=== PATIENT | female | born 1990 | race Caucasian/White ===

== ENCOUNTER 2020-03-23 11:11 | Outpatient (CLI) | payer OTHER, SELFPAY ==
--- NOTE | ~2020-03-23 | US_ITS ---
EXAMINATION: US thyroid DATE: 03/23/2020 14:50 INDICATION: Thyroid nodule TECHNIQUE: Multiple ultrasound images of the thyroid were obtained. COMPARISON: 12/02/2018 FINDINGS: The right thyroid lobe measures 5.1 x 1.8 x 1.4 cm. The left thyroid lobe measures 5.2 x 2.0 x 1.7 c m. There is heterogeneous echogenicity throughout both thyroid lobes with multiple hypoechoic region s throughout both thyroid lobes the majority of which does not appear discretely nodular. There is mo re discrete 1.5 x 1.4 x 1.2 cm hypoechoic solid nodule in the inferior right thyroid with well-define d peripheral margins and without internal echogenic foci (TI-RADS 4, moderately suspicious , FNA if > =1.5 cm, annual followup is >1 cm). No interval change in a 10 x 8 x 5 mm nodule with lobular margins in the left thyroid lobe, also TI RADS 4. IMPRESSION: 1. Heterogeneous thyroid with a couple more discretely defined solid TI RADS 4 nodules, the largest o n the right measuring 1.5 cm for which ultrasound-guided biopsy would be recommended. Reviewed, dictated and finalized at location A. IMPRESSION: 1. Heterogeneous thyroid with a couple more discretely defined solid TI RADS 4 nodules, the largest on the right measuring 1.5 cm for which ultrasound-guided biopsy would be recommended.
== END 2020-03-23 11:12 | disposition home or self-care (01) ==
PROVIDERS: PCP Internal Medicine; Visit Provider Internal Medicine
DX: E04.2 Nontoxic multinodular goiter (principal)
CPT/HCPCS: 76536

== ENCOUNTER 2020-05-29 07:55 | Emergency (ER) | payer OTHER, SELFPAY ==
[2020-05-29 08:00] VITALS: PULSE 110; RESP 18; TEMP 36.4; O2SAT 100
[2020-05-29] MEDS: SODIUM CHLORIDE 0.9% IV 1,000 ML 999 ML IV CONT (08:14)
[2020-05-29] MEDS: KETOROLAC 30 MG/ML VIAL (*BKC) IV PUSH (08:14)
[2020-05-29] MEDS: diphenhydrAMINE HCl INJ 50 MG/ML VIAL 25 MG IV PUSH (08:15)
[2020-05-29] MEDS: METOCLOPRAMIDE HCL INJ 10 MG/2 ML VIAL IV PUSH (08:15)
--- NOTE | 2020-05-29 09:10 | ED.HA ---
HPI - Headache General Chief Complaint: Headache Stated Complaint: headache Time Seen by Provider: 05/29/20 07:59 History of Present Illness HPI Narrative: Patient is a 30-year-old female who presents the ER with migraine headache. Patient has history of migraine headaches and this is similar but more severe. Ongoing for the last 7 days. She has tried nxcy-evy-dkpyuun medications as well as Maxalt with no relief of her headache. She does not see a migraine specialist. No fevers or chills or sweats/nausea/vomiting. She endorses photophobia and phonophobia. She reports diplopia in the right eye when the left eye is closed and when using both eyes. She also reports sensation numbness down her right arm though sharp and soft touch is intact. No trauma or sudden onset headache. Related Data Home Medications Medication Instructions Recorded Confirmed albuterol sulfate 90 mcg/actuation 1 puff INHALATION Q4H PRN 10/15/19 aerosol inhaler citalopram 20 mg tablet 20 mg PO DAILY 10/15/19 dicyclomine 10 mg capsule 10 mg PO .PRN cap 10/15/19 levocetirizine 5 mg tablet 5 mg PO DAILY 10/15/19 levothyroxine 50 mcg tablet 50 mcg PO DAILY 10/15/19 montelukast 10 mg tablet 10 mg PO DAILY 10/15/19 omeprazole 40 mg capsule,delayed 40 mg PO DAILY 10/15/19 release ethynodiol diac-eth estradiol tablet 05/29/20 [Zovia 1/35E (28)] rizatriptan mg 05/29/20 venlafaxine 75 mg PO QAM 05/29/20 Allergies Allergy/AdvReac Type Severity Reaction Status Date / Time piperacillin Allergy Mild Rash Verified 05/29/20 08:05 tazobactam Allergy Mild Rash Verified 05/29/20 08:05 Review of Systems Review of Systems: All systems reviewed & are unremarkable except as noted in HPI and below Constitutional: Constitutional: Denies chills, Denies fever(s) and Denies weakness Eyes: Comments: Double vision in right eye, photophobia ENT: Comments: Phonophobia Neurologic: Reports headache(s), Denies focal weakness and Reports numbness PMFSH Past Medical History Medical History (Updated 05/29/20 @ 09:15 by Román Fuller MD) Anxiety HLD (hyperlipidemia) Hypothyroidism IBS (irritable bowel syndrome) Injury of right knee Medial meniscus tear Migraine headache Surgical History Surgical History (Updated 05/29/20 @ 09:12 by Román Fuller MD) History of appendectomy History of cholecystectomy Social History Social History Smoking status: Never smoker Alcohol intake: current Gender identity (if verbalized by the patient): Female Exam Narrative: Exam Narrative: GENERAL: Uncomfortable-appearing, well-nourished, and in no acute distress. HEAD: Normocephalic, atraumatic. EYES: PERRLA and EOMI. CHEST: Clear to auscultation. No respiratory distress. HEART: Tachycardic and regular. Normal peripheral pulses. EXTREMITIES: Normal range of motion. No edema. NEURO: No focal deficits. Sharp/soft touch equal in bilateral upper extremities. Alert and oriented x3. PSYCH: Normal mood and affect. Course Course Emergency Course: Headache resolved with saline, Benadryl/Reglan/Toradol. Reports total resolution in double vision and numbness sensation. Vital Signs Vital signs: Vital Signs Temperature 97.5 F L 05/29/20 08:00 Pulse Rate 110 H 05/29/20 08:00 Respiratory Rate 18 05/29/20 08:00 Pulse Oximetry 100 05/29/20 08:00 Temperature 97.5 F L 05/29/20 08:00 Pulse Rate 110 H 05/29/20 08:00 Respiratory Rate 18 05/29/20 08:00 Pulse Oximetry 100 05/29/20 08:00 Discharge Plan Discharge Clinical Impression: Headache, migraine Patient Disposition: Home, Self-Care Condition: Stable Instructions: Antibiotic Form, Migraine Headache (ED) Additional Instructions: Return to the ER if you have chest pain or shortness of breath, cannot keep down food or water, you have fever over 100.4 ?F, you have additional concerns. Prescriptions: No Action
[2020-05-29 09:25] VITALS: BP 135/89; PULSE 90; RESP 14; O2SAT 98
== END 2020-05-29 09:27 | disposition home or self-care (01) ==
PROVIDERS: Emergency Provider Emergency Medicine; PCP Internal Medicine
DX: G43.909 Migraine, unspecified, not intractable, without status migrainosus (principal); F41.9 Anxiety disorder, unspecified; E78.5 Hyperlipidemia, unspecified; E03.9 Hypothyroidism, unspecified; K58.9 Irritable bowel syndrome, unspecified
CPT/HCPCS: 96361; 96374; 96375; 99284; J1200; J1885; J2765; J7030

== ENCOUNTER 2020-05-30 06:32 | Emergency (ER) | payer OTHER, SELFPAY ==
--- NOTE | ~2020-05-30 | CT_ITS ---
EXAMINATION: CT brain wo con DATE: 05/30/2020 07:14 INDICATION: Headache. Numbness of the arms and face. Right visual disturbance. TECHNIQUE: Computed tomography (CT) of the head was performed without intravenous contrast. The mA wa s adjusted according to patient size. Iterative reconstruction technique was employed. Exam dose: 60 5.33 mGy-cm total exam DLP. COMPARISON: None FINDINGS: No intracranial mass lesion or hemorrhage or cerebrovascular accident. No midline shift or mass effects. Normal ventricular size. Normal pyle-white matter differentiation. No subdural or epidu ral hematoma. The orbits are unremarkable. No fracture or bone destruction of the cranial vault. Included paranasal sinuses and mastoid air cell s are normally developed and aerated. IMPRESSION: Negative examination Reviewed, dictated and finalized at [facility]. Reviewed, dictated and finalized at location A. IMPRESSION: Negative examination
--- NOTE | ~2020-05-30 | CT_ITS ---
EXAMINATION: CTA BRAIN/CAROTID DATE: 05/30/2020 10:25 INDICATION: Headache. Right-sided numbness and diplopia. TECHNIQUE: Computed tomographic angiography (CTA) of the head and neck was performed with 100 mL Omni paque-350 intravenous contrast. Multiplanar reconstructions and maximum intensity projection 3D-recon structions of the carotid arteries and of the intracranial arteries were created by the technologist on a separate workstation. Automated exposure control and iterative reconstruction technique were em ployed.The dose-length product was 946.31 mGy-cm. COMPARISON: Noncontrast head CT dated 05/30/2020 at 7:08 AM FINDINGS: Carotid arteries: There is 0% stenosis of the right carotid bulb relative to normal distal artery lumen diameter (NASCE T criteria). There is 0% stenosis of the left carotid bulb relative to normal distal artery lumen reta meter. The cervical vertebral arteries appear normal. Cervical soft tissues are unremarkable. Visuali zed portions of the airway and apices of the lungs are clear. Intracranial arteries There is no hemodynamically significant stenosis in the vertebral, basilar and internal carotid arter ies. Vertebral arteries are codominant. There are no aneurysms identified. Both A1 and P1 segments a re patent. There is also a patent anterior communicating cerebral artery. Cerebral arterial arborizat ion appears symmetric. No abnormal enhancing brain lesions identified. IMPRESSION: 1. 0% stenosis of the right carotid bulb relative to normal distal artery lumen diameter (NASCET crit eria). 2. 0% stenosis of the left carotid bulb relative to normal distal artery lumen diameter. 3. Normal cerebral angiogram. Reviewed, dictated and finalized at location A. IMPRESSION: 1. 0% stenosis of the right carotid bulb relative to normal distal artery lumen diameter (NASCET criteria). 2. 0% stenosis of the left carotid bulb relative to normal distal artery lumen diameter. 3. Normal cerebral angiogram.
[2020-05-30 06:35] VITALS: BP 132/91; PULSE 108; RESP 19; TEMP 35.9; O2SAT 100
[2020-05-30] MEDS: METOCLOPRAMIDE HCL INJ 10 MG/2 ML VIAL IV PUSH (07:26)
[2020-05-30] MEDS: SODIUM CHLORIDE 0.9% IV 1,000 ML 999 ML IV CONT (07:26)
[2020-05-30] MEDS: KETOROLAC 30 MG/ML VIAL (*BKC) IV PUSH (07:27)
[2020-05-30] MEDS: diphenhydrAMINE HCl INJ 50 MG/ML VIAL 25 MG IV PUSH (07:27)
[2020-05-30 07:34] VITALS: BP 124/86; PULSE 89; RESP 20; O2SAT 98
--- NOTE | 2020-05-30 07:35 | ED.HA ---
HPI - Headache General Chief Complaint: Headache Stated Complaint: migraine Time Seen by Provider: 05/30/20 07:06 History of Present Illness HPI Narrative: Patient is a 30-year-old female who presents the ER with headache. Was seen yesterday for similar symptoms that had lasted for a week. She reports after getting home she went to bed and then awoke around 7 PM yesterday evening. Her headache started to come back so she took a Tylenol. Around 9 PM she took a Maxalt. She reports headache increased throughout the night. She now again has double vision in her right eye and numb sensation to her right upper extremity. She reports her told her she was confused with patient's not demonstrating confusion at this time. No additional changes to her symptoms. Related Data Home Medications Medication Instructions Recorded Confirmed albuterol sulfate 90 mcg/actuation 1 puff INHALATION Q4H PRN 10/15/19 aerosol inhaler citalopram 20 mg tablet 20 mg PO DAILY 10/15/19 dicyclomine 10 mg capsule 10 mg PO .PRN cap 10/15/19 levocetirizine 5 mg tablet 5 mg PO DAILY 10/15/19 levothyroxine 50 mcg tablet 75 mcg PO DAILY 10/15/19 montelukast 10 mg tablet 10 mg PO DAILY 10/15/19 omeprazole 40 mg capsule,delayed 40 mg PO DAILY 10/15/19 release ethynodiol diac-eth estradiol tablet 05/29/20 [Zovia 1/35E (28)] rizatriptan mg 05/29/20 venlafaxine 75 mg PO QAM 05/29/20 Allergies Allergy/AdvReac Type Severity Reaction Status Date / Time piperacillin Allergy Mild Rash Verified 05/29/20 08:05 tazobactam Allergy Mild Rash Verified 05/29/20 08:05 Review of Systems Review of Systems: All systems reviewed & are unremarkable except as noted in HPI and below Constitutional: Constitutional: Denies chills, Denies fever(s) and Denies weakness Eyes: Eyes: Reports change in vision Comments: photophobia ENT: Denies nasal congestion and Denies sore throat Comments: phonophobia Neurologic: Reports confusion, Denies vertigo, Reports headache(s), Denies focal weakness and Reports numbness [facility] Past Medical History Medical History (Updated 08/07/20 @ 11:12 by Román Fuller MD) Anxiety HLD (hyperlipidemia) Hypothyroidism IBS (irritable bowel syndrome) Injury of right knee Medial meniscus tear Migraine headache Surgical History Surgical History (Updated 05/29/20 @ 09:12 by Román Fuller MD) History of appendectomy History of cholecystectomy Social History Social History Smoking status: Never smoker Alcohol intake: current Gender identity (if verbalized by the patient): Female Exam Narrative: Exam Narrative: GENERAL: Well-appearing, well-nourished, and in no acute distress. HEAD: Normocephalic, atraumatic. CHEST: Clear to auscultation. No respiratory distress. HEART: Regular rate and rhythm. Normal peripheral pulses. EXTREMITIES: Normal range of motion. No edema. SKIN: Warm, dry, no rash. NEURO: No focal deficits. Clear speech. Alert and oriented x3. PSYCH: Normal mood and affect. Course Course Emergency Course: Discussed case with Dr. Fischer with neurology. Recommend CTA to rule out aneurysm. After that patient to be started on Topamax 25 mg daily and can follow-up in clinic. She may continue to take a Maxalt and [id number]-[id number] medications for headache. Patient now reports that headache is starting to return and send the posterior aspect of her head down near her neck at the occipital condyle. Vital Signs Vital signs: Vital Signs Temperature 96.7 F L 05/30/20 06:35 Pulse Rate 108 H 05/30/20 06:35 Respiratory Rate 19 05/30/20 06:35 Blood Pressure 132/91 H 05/30/20 06:35 Pulse Oximetry 100 05/30/20 06:35 Temperature 96.7 F L 05/30/20 06:35 Pulse Rate 85 05/30/20 10:55 Respiratory Rate 20 05/30/20 10:55 Blood Pressure 134/70 05/30/20 08:19 Pulse Oximetry 99 05/30/20 10:55 MDM - Headache Lab Data Re
[2020-05-30 07:43] LABS: Basophils Absolute Auto 0.1 K/mm3 (0.0-0.1); Basophils Percent Auto 0.5 % (0.2-1.2); Eosinophils Absolute Auto 0.2 K/mm3 (0-0.3); Eosinophils Percent Auto 1.6 % (0-4.4); Hematocrit 42.1 % (37.0-47.0); Hemoglobin 14.1 g/dL (12.0-15.0); Immature Granulocyte Absolute 0.03 K/mm3 (0.00-0.031); Immature Granulocyte Percent A 0.3 % (0-0.5); Lymphocytes Absolute Auto 4.06 K/mm3 (0.9-3.2); Lymphocytes Percent Auto 39.7 % (18.3-44.2); Mean Corpuscular HGB Conc 33.5 g/dl (32-36); Mean Corpuscular Hemoglobin 30.9 pg (26-34); Mean Corpuscular Volume 92.1 fl (80-100); Mean Platelet Volume 10.5 fl (7.4-10.4); Monocytes Absolute Auto 0.5 K/mm3 (0.1-0.6); Monocytes Percent Auto 5.2 % (2.6-8.5); Neutrophils Absolute Auto 5.4 K/mm3 (1.3-6.7); Neutrophils Percent Auto 52.7 % (45.5-73.1); Platelet Count Result 411 k/mm3 (150-375); Red Blood Count 4.57 M/mm3 (4.2-5.4); Red Cell Distribution Width 12.7 % (11.5-14.5); White Blood Count 10.2 K/mm3 (4.5-10.0)
[2020-05-30 07:54] LABS: Anion Gap 13.7 mmol/L (7-16); Blood Urea Nitrogen 10 mg/dL (7-17); Calcium 9.2 mg/dL (8.4-10.2); Carbon Dioxide 23 mmol/L (22-30); Chloride 105 mmol/L (98-107); Estimated CRCL calculation 128 ml/min; Estimated Glomerular Filt Rate > 60; Glucose 92 mg/dL (65-105); Potassium 3.7 mmol/L (3.4-5.0); Sodium 138 mmol/L (137-145)
[2020-05-30 08:19] VITALS: BP 134/70; PULSE 99; RESP 20; O2SAT 99
[2020-05-30 08:46] LABS: Add Urine Microscopic? YES; Appearance Urine Clear (Clear); Bacteria Urine Trace /hpf; Bilirubin Urine Negative (Negative); Blood Urine Negative (Negative); Color Urine Straw (Yellow); Glucose Urine UA Negative (Negative); Ketones Urine Negative (Negative); Leukocyte Esterase Ur 3+ LEU/UL (Negative); Nitrate Urine Negative (Negative); Protein Urine Negative (Negative); RBC Urine 0-2 /hpf (0-2); Specific Grav Ur 1.009 (1.001-1.035); Squamous Epithelial Cell Urine Few /hpf (Few); Urobilinogen Urine Negative mg/dL (<2.0)
[2020-05-30 09:00] VITALS: PULSE 86; RESP 20; O2SAT 99
[2020-05-30] MEDS: MORPHINE SULFATE 4 MG/ML INJ IV PUSH (10:54)
[2020-05-30 10:55] VITALS: PULSE 85; RESP 20; O2SAT 99
[2020-05-30 12:10] VITALS: BP 121/79; PULSE 83; RESP 16; TEMP 36.6; O2SAT 99
== END 2020-05-30 12:11 | disposition home or self-care (01) ==
PROVIDERS: Emergency Provider Emergency Medicine; PCP Internal Medicine
DX: G43.909 Migraine, unspecified, not intractable, without status migrainosus (principal); F41.9 Anxiety disorder, unspecified; E78.5 Hyperlipidemia, unspecified; E03.9 Hypothyroidism, unspecified; K58.9 Irritable bowel syndrome, unspecified; R82.998 Other abnormal findings in urine
CPT/HCPCS: 36415; 70450; 70496; 70498; 80048; 81001; 85025; 87086; 96361; 96374; 96375; 99284; J1200; J1885; J2270; J2765; J7030; Q9967

== ENCOUNTER 2020-06-19 12:45 | Emergency (ER) | payer OTHER, SELFPAY ==
[2020-06-19] VITALS (19 sets, daily range): BP systolic 111–129; BP diastolic 71–83; PULSE 81–120; RESP 16–27; TEMP 35.9; O2SAT 95–100
[2020-06-19 13:43] LABS: Basophils Absolute Auto 0.1 K/mm3 (0.0-0.1); Basophils Percent Auto 0.9 % (0.2-1.2); Eosinophils Absolute Auto 0.1 K/mm3 (0-0.3); Eosinophils Percent Auto 0.7 % (0-4.4); Hematocrit 40.1 % (37.0-47.0); Hemoglobin 14.2 g/dL (12.0-15.0); Immature Granulocyte Absolute 0.03 K/mm3 (0.00-0.031); Immature Granulocyte Percent A 0.3 % (0-0.5); Lymphocytes Absolute Auto 2.72 K/mm3 (0.9-3.2); Lymphocytes Percent Auto 30.7 % (18.3-44.2); Mean Corpuscular HGB Conc 35.4 g/dl (32-36); Mean Corpuscular Hemoglobin 31.3 pg (26-34); Mean Corpuscular Volume 88.5 fl (80-100); Mean Platelet Volume 10.3 fl (7.4-10.4); Monocytes Absolute Auto 0.6 K/mm3 (0.1-0.6); Monocytes Percent Auto 6.8 % (2.6-8.5); Neutrophils Absolute Auto 5.4 K/mm3 (1.3-6.7); Neutrophils Percent Auto 60.6 % (45.5-73.1); Platelet Count Result 363 k/mm3 (150-375); Red Blood Count 4.53 M/mm3 (4.2-5.4); Red Cell Distribution Width 12.2 % (11.5-14.5); White Blood Count 8.9 K/mm3 (4.5-10.0)
--- NOTE | 2020-06-19 13:51 | ED.HA ---
HPI - Headache General Chief Complaint: Headache Stated Complaint: conroy/right sided facial numbness Time Seen by Provider: 06/19/20 13:00 Source: patient Mode of arrival: ambulatory Limitations: no limitations History of Present Illness HPI Narrative: Patient is a 30-year-old female who presents to emergency department for evaluation of headache noted as frontal headache that radiates posteriorly into the neck patient has had this migraine headache since the beginning of May patient is seen her neurologist and had recent changes and increases of her medication with no improvement patient is followed by a neurologist out of [facility]. Patient on arrival to emergency department is in no distress. Patient with longstanding history of migraine headaches. Patient denies injury trauma or recent illness. Patient on arrival to emergency department in no distress. Related Data Home Medications Medication Instructions Recorded Confirmed albuterol sulfate 90 mcg/actuation 1 puff INHALATION Q4H PRN 10/15/19 aerosol inhaler citalopram 20 mg tablet 20 mg PO DAILY 10/15/19 dicyclomine 10 mg capsule 10 mg PO .PRN cap 10/15/19 levocetirizine 5 mg tablet 5 mg PO DAILY 10/15/19 levothyroxine 50 mcg tablet 75 mcg PO DAILY 10/15/19 montelukast 10 mg tablet 10 mg PO DAILY 10/15/19 omeprazole 40 mg capsule,delayed 40 mg PO DAILY 10/15/19 release ethynodiol diac-eth estradiol tablet 05/29/20 [Zovia 1/35E (28)] rizatriptan mg 05/29/20 venlafaxine 75 mg PO QAM 05/29/20 Allergies Allergy/AdvReac Type Severity Reaction Status Date / Time piperacillin Allergy Mild Rash Verified 06/19/20 13:14 tazobactam Allergy Mild Rash Verified 06/19/20 13:14 Review of Systems Review of Systems: All systems reviewed & are unremarkable except as noted in HPI and below PMFSH Past Medical History Medical History Anxiety HLD (hyperlipidemia) Hypothyroidism IBS (irritable bowel syndrome) Injury of right knee Medial meniscus tear Migraine headache Surgical History Surgical History History of appendectomy History of cholecystectomy Social History Social History Smoking status: Never smoker Alcohol intake: current Gender identity (if verbalized by the patient): Female Exam Narrative: Exam Narrative: GENERAL: Well-appearing, obese, and in no acute distress. HEAD: Normocephalic, atraumatic. EYES: PERRLA and EOMI. ENT: Nares clear, no rhinorrhea or epistaxis. Mucous membranes moist. Oropharynx without tonsillar hypertrophy exudate or other lesions. Bilateral TMs pearly pyle nonbulging NECK: Supple. No adenopathy or masses. CHEST: Clear to auscultation. No respiratory distress. No wheezes rales or rhonchi HEART: Regular rate and rhythm. No murmur heard. EXTREMITIES: Normal range of motion. No edema. SKIN: Warm, dry, no rash. NEURO: No focal deficits. Alert and oriented x3. Cranial nerves II through XII grossly intact. Normal speech and gait. Cerebellar intact PSYCH: Normal mood and affect. Course Course Emergency Course: Patient in the room in no distress aware of case findings treatment plan and diagnosis agreeing to follow with her specialist and primary care for further evaluation had interval improvement in the emergency department Vital Signs Vital signs: Vital Signs Temperature 96.6 F L 06/19/20 12:56 Pulse Rate 120 H 06/19/20 12:56 Respiratory Rate 16 06/19/20 12:56 Blood Pressure 114/75 06/19/20 12:56 Pulse Oximetry 99 06/19/20 12:56 Temperature 96.6 F L 06/19/20 12:56 Pulse Rate 105 H 06/19/20 14:04 Respiratory Rate 22 H 06/19/20 14:04 Blood Pressure 111/79 06/19/20 14:04 Pulse Oximetry 99 06/19/20 14:04 MDM - Headache MDM Narrative Medical decision making narrative: Patients headache w
[2020-06-19 13:53] LABS: Alanine Aminotransferase 58 U/L (4-35); Albumin Level 4.6 g/dL (3.5-5.1); Alkaline Phosphatase 118 U/L (38-126); Anion Gap 14 mmol/L (8-16); Aspartate Amino Transferase 46 U/L (14-36); Bilirubin,Total 0.6 mg/dL (0.2-1.3); Blood Urea Nitrogen 12 mg/dL (7-17); Calcium 9.4 mg/dL (8.4-10.2); Carbon Dioxide 17 mmol/L (22-30); Chloride 107 mmol/L (98-107); Estimated CRCL calculation 105 ml/min; Estimated Glomerular Filt Rate > 60; Glucose 91 mg/dL (65-105); Potassium 3.7 mmol/L (3.4-5.0); Sodium 138 mmol/L (137-145)
[2020-06-19] MEDS: KETOROLAC 30 MG/ML VIAL (*BKC) IV PUSH (14:11)
[2020-06-19] MEDS: diphenhydrAMINE HCl INJ 50 MG/ML VIAL 25 MG IV PUSH (14:11)
[2020-06-19] MEDS: METOCLOPRAMIDE HCL INJ 10 MG/2 ML VIAL IV PUSH (14:11)
[2020-06-19] MEDS: SODIUM CHLORIDE 0.9% IV 1,000 ML 999 ML IV CONT (14:12)
[2020-06-19] MEDS: FAMOTIDINE 20 MG/2 ML VIAL IV PUSH (14:12)
--- NOTE | 2020-06-19 15:24 | PC.NURSE ---
pt ambulatory with steady gait to restroom to provide urine sample at this time.
[2020-06-19 15:56] LABS: Add Urine Microscopic? YES; Appearance Urine Clear (Clear); Bacteria Urine 2+ /hpf; Bilirubin Urine Negative (Negative); Blood Urine Negative (Negative); Color Urine Yellow (Yellow); Glucose Urine UA Negative (Negative); Ketones Urine Trace mg/dL (Negative); Leukocyte Esterase Ur 1+ LEU/UL (Negative); Mucus Urine Rare /lpf; Nitrate Urine Negative (Negative); Protein Urine Negative (Negative); Specific Grav Ur 1.012 (1.001-1.035); Squamous Epithelial Cell Urine Many /hpf (Few); Urobilinogen Urine Negative mg/dL (<2.0)
== END 2020-06-19 16:06 | disposition home or self-care (01) ==
PROVIDERS: Emergency Medicine Emergency Medical Services; Emergency Provider Emergency Medicine; PCP Internal Medicine
DX: G43.909 Migraine, unspecified, not intractable, without status migrainosus (principal); E78.5 Hyperlipidemia, unspecified; E03.9 Hypothyroidism, unspecified; K58.9 Irritable bowel syndrome, unspecified; F41.9 Anxiety disorder, unspecified; Z79.899 Other long term (current) drug therapy
CPT/HCPCS: 36415; 80053; 81001; 81025; 85025; 87086; 96361; 96374; 96375; 99284; J1200; J1885; J2060; J2765; J7030

== ENCOUNTER 2020-07-25 12:08 | Outpatient (CLI) | payer OTHER, SELFPAY ==
[2020-07-25 13:26] LABS: Free T4 Free Thyroxine 0.79 ng/mL (0.78-2.19)
[2020-07-29 12:17] LABS: Triiodothyronine T3 Free 2.8 pg/mL (2.3-4.2)
== END 2020-07-25 12:09 | disposition home or self-care (01) ==
PROVIDERS: PCP Internal Medicine; Visit Provider Internal Medicine
DX: E03.4 Atrophy of thyroid (acquired) (principal); E55.9 Vitamin D deficiency, unspecified
CPT/HCPCS: 36415; 82306; 84439; 84443; 84481

== ENCOUNTER 2020-08-26 10:19 | Outpatient (CLI) | payer OTHER, SELFPAY ==
--- NOTE | ~2020-08-26 | XR_ITS ---
EXAMINATION: XR chest 2V DATE: 08/26/2020 10:41 INDICATION: Cough and fever TECHNIQUE: PA and lateral views of the chest are obtained. COMPARISON: 07/17/2012 FINDINGS: The lungs are free of acute opacities. There is no pleural effusion or pneumothorax. The ca rdiomediastinal silhouette is normal. Cholecystectomy clips are noted in the right upper quadrant. Th e visualized osseous structures are unremarkable. IMPRESSION: 1. No acute cardiopulmonary abnormality. Reviewed, dictated and finalized at location A. [facility] [employer]IV[employer]
[2020-08-26 10:35] LABS: Basophils Absolute Auto 0.07 K/mm3 (0.00-0.10); Basophils Percent Auto 0.8 % (0.0-1.0); Eosinophils Absolute Auto 0.14 K/mm3 (0.02-0.50); Eosinophils Percent Auto 1.6 % (1.0-6.0); Hematocrit 38.4 % (35.0-49.0); Hemoglobin 12.9 g/dL (12.0-15.0); Immature Granulocyte Absolute 0.03 K/mm3 (0.00-0.00); Immature Granulocyte Percent A 0.3 % (0.0-0.0); Lymphocytes Absolute Auto 3.21 K/mm3 (1.10-4.50); Lymphocytes Percent Auto 36.1 % (18.0-42.0); Mean Corpuscular HGB Conc 33.6 g/dL (32.0-36.0); Mean Corpuscular Volume 92.3 fL (78.0-102.0); Mean Platelet Volume 9.5 fl (9.2-11.8); Monocytes Absolute Auto 0.37 K/mm3 (0.10-0.90); Monocytes Percent Auto 4.2 % (2.0-11.0); Neutrophils Absolute Auto 5.1 K/mm3 (1.7-7.2); Platelet Count Result 406 K/mm3 (150-420); Red Blood Count 4.16 M/mm3 (4.20-5.40); Red Cell Distribution Width 12.5 % (11.6-14.4); White Blood Count 8.9 K/mm3 (4.8-10.8)
[2020-08-26 10:46] LABS: Anion Gap 13 mmol/L (8-16); Blood Urea Nitrogen 11 mg/dL (7-18); Calcium 8.9 mg/dL (8.5-10.1); Carbon Dioxide 21 mmol/L (21-32); Chloride 106 mmol/L (98-108); Estimated Glomerular Filt Rate > 60; Glucose 86 mg/dL (70-99); Osmolality Calculated 288 mOsm/kg (285-295); Potassium 3.9 mmol/L (3.5-5.1); Sodium 140 mmol/L (136-145)
[2020-08-26 11:11] LABS: Influenza Control Valid (Valid)
[2020-08-27 18:20] LABS: SARS-CoV-2 RNA PCR Negative
== END 2020-08-26 10:20 | disposition home or self-care (01) ==
PROVIDERS: Surgery; PCP Internal Medicine; Visit Provider Internal Medicine
DX: R50.9 Fever, unspecified (principal); J06.9 Acute upper respiratory infection, unspecified; R06.02 Shortness of breath; J02.9 Acute pharyngitis, unspecified; Z20.828 Contact with and (suspected) exposure to other viral communicable diseases
CPT/HCPCS: 71046; 80048; 85025; 87635; 87804; C9803; U0003

== ENCOUNTER 2020-11-10 12:16 | Outpatient (CLI) | payer OTHER, SELFPAY ==
--- NOTE | ~2020-11-10 | XR_ITS ---
EXAMINATION: XR shoulder RT min 2V DATE: 11/10/2020 12:37 INDICATION: Right shoulder pain. TECHNIQUE: 4 views of right shoulder were obtained. COMPARISON: None. FINDINGS: Bone alignment is normal. No fracture. Joint spaces are well maintained. IMPRESSION: 1. Normal right shoulder. Reviewed, dictated and finalized at location B. STRIPPER IMPRESSION: 1. Normal right shoulder.
== END 2020-11-10 12:17 | disposition home or self-care (01) ==
LOC: ANHIMG 12:25
PROVIDERS: PCP Internal Medicine; Visit Provider Internal Medicine
DX: M25.511 Pain in right shoulder (principal)
CPT/HCPCS: 73030

== ENCOUNTER 2020-11-24 07:22 | Outpatient (CLI) | payer OTHER, SELFPAY ==
[2020-11-24 07:45] LABS: Hematocrit 39.4 % (37.0-47.0); Hemoglobin 13.3 g/dL (12.0-15.0); Mean Corpuscular HGB Conc 33.8 g/dl (32-36); Mean Corpuscular Hemoglobin 31.2 pg (26-34); Mean Corpuscular Volume 92.5 fl (80-100); Mean Platelet Volume 9.8 fl (7.4-10.4); Platelet Count Result 363 k/mm3 (150-375); Red Blood Count 4.26 M/mm3 (4.2-5.4); Red Cell Distribution Width 12.4 % (11.5-14.5); White Blood Count 10.8 K/mm3 (4.5-10.0)
[2020-11-24 07:58] LABS: Alanine Aminotransferase 45 U/L (4-35); Albumin Level 4.3 g/dL (3.5-5.1); Alkaline Phosphatase 114 U/L (38-126); Anion Gap 8 mmol/L (8-16); Aspartate Amino Transferase 36 U/L (14-36); Bilirubin,Total 0.4 mg/dL (0.2-1.3); Blood Urea Nitrogen 15 mg/dL (7-17); Calcium 8.7 mg/dL (8.4-10.2); Carbon Dioxide 22 mmol/L (22-30); Chloride 108 mmol/L (98-107); Cholesterol 185 mg/dL (0-200); Estimated Glomerular Filt Rate > 60; Glucose 91 mg/dL (65-105); HDL Direct 50 mg/dL; Potassium 4.1 mmol/L (3.4-5.0); Sodium 138 mmol/L (137-145); Triglycerides 211 mg/dL (<150)
[2020-11-24 08:01] LABS: Add Urine Microscopic? YES; Appearance Urine Clear (Clear); Bilirubin Urine Negative (Negative); Blood Urine Negative (Negative); Color Urine Yellow (Yellow); Glucose Urine UA Negative (Negative); Ketones Urine Negative (Negative); Leukocyte Esterase Ur Trace LEU/UL (NEGATIVE); Mucus Urine Rare /lpf; Nitrate Urine Negative (Negative); Protein Urine Negative (Negative); RBC Urine 0-2 /hpf (0-2); Specific Grav Ur 1.025 (1.001-1.035); Squamous Epithelial Cell Urine Occasional /hpf (Few); Urobilinogen Urine Negative mg/dL (<2.0)
[2020-11-24 08:09] LABS: LDL Cholesterol Direct 101 mg/dL
[2020-11-24 08:29] LABS: Thyroid Stimulating Hormone 0.718 uIU/mL (0.465-4.680)
[2020-11-24 09:11] LABS: Free T4 Free Thyroxine 0.86 ng/mL (0.78-2.19); Vitamin D 25 Hydroxy 39.6 ng/mL
[2020-11-26 06:49] LABS: Triiodothyronine T3 Free 2.5 pg/mL (2.3-4.2)
== END 2020-11-24 07:23 | disposition home or self-care (01) ==
PROVIDERS: PCP Internal Medicine; Visit Provider Internal Medicine
DX: Z00.00 Encounter for general adult medical examination without abnormal findings (principal)
CPT/HCPCS: 36415; 80053; 80061; 81001; 82306; 84439; 84443; 84481; 85027

== ENCOUNTER 2021-04-20 06:57 | Outpatient (CLI) | payer OTHER, SELFPAY ==
--- NOTE | ~2021-04-20 | CT_ITS ---
EXAMINATION: CT abdomen pelvis w con DATE: 04/20/2021 07:37 INDICATION: Right abdominal pain. TECHNIQUE: Computed tomography (CT) of the abdomen and pelvis was performed with 100 mL Omnipaque 350 intravenous contrast. Automated exposure control and iterative reconstruction technique were employe d. The dose-length product was 753.41 mGy-cm. COMPARISON: CT abdomen and pelvis 11/20/2018 FINDINGS: The visualized portions of the lung bases are clear without pneumonia or pleural effusion. The heart size is normal. No pericardial effusion. The liver, spleen, pancreas, adrenal glands, and k idneys are normal. There are changes of cholecystectomy. There are no dilated loops of bowel. There a re changes of appendectomy. There are no pathologically enlarged lymph nodes. There is no free intrap eritoneal fluid. The bones are unremarkable. IMPRESSION: 1. No etiology for the patient's symptoms. Reviewed, dictated and finalized at location A.
== END 2021-04-20 06:58 | disposition home or self-care (01) ==
PROVIDERS: PCP Internal Medicine; Visit Provider Internal Medicine
DX: R19.4 Change in bowel habit (principal)
CPT/HCPCS: 74177; Q9967

== ENCOUNTER 2021-06-11 11:45 | Outpatient (CLI) | payer OTHER, SELFPAY ==
[2021-06-11 14:41] LABS: SARS-CoV-2 RNA PCR Negative (Negative)
== END 2021-06-11 11:46 | disposition home or self-care (01) ==
LOC: CHSLAB 11:48
PROVIDERS: PCP Surgery; Visit Provider Surgery
DX: Z20.822 Contact with and (suspected) exposure to COVID-19 (principal)
CPT/HCPCS: C9803; U0003; U0005

== ENCOUNTER 2021-07-10 07:51 | Emergency (ER) | payer OTHER, SELFPAY ==
[2021-07-10 07:56] VITALS: BP 138/83; PULSE 102; RESP 16; TEMP 36.6; O2SAT 99
--- NOTE | 2021-07-10 09:35 | ED.HA ---
HPI - Headache General Chief Complaint: Headache Stated Complaint: migraine Time Seen by Provider: 07/10/21 08:22 Source: patient and family Limitations: no limitations History of Present Illness HPI Narrative: Patient presents with right-sided migraine headache, similar to her previous history, patient max on her home medication and usually when she does that she come to the emergency room for IV medication. Patient report the headache is throbbing, associated with nausea and vomiting and photophobia. Patient denies any fever, chills, chest pain, shortness of breath. Related Data Home Medications Medication Instructions Recorded Confirmed albuterol sulfate 90 mcg/actuation 1 puff INHALATION Q4H PRN 10/15/19 02/20/21 aerosol inhaler citalopram 20 mg tablet 20 mg PO DAILY 10/15/19 02/20/21 dicyclomine 10 mg capsule 10 mg PO .PRN cap 10/15/19 02/20/21 levocetirizine 5 mg tablet 5 mg PO DAILY 10/15/19 02/20/21 levothyroxine 50 mcg tablet 75 mcg PO DAILY 10/15/19 02/20/21 montelukast 10 mg tablet 10 mg PO DAILY 10/15/19 02/20/21 omeprazole 40 mg capsule,delayed 40 mg PO DAILY 10/15/19 02/20/21 release ethynodiol diac-eth estradiol tablet 05/29/20 02/20/21 [Zovia 1/35E (28)] rizatriptan mg 05/29/20 02/20/21 venlafaxine 75 mg PO QAM 05/29/20 02/20/21 Allergies Allergy/AdvReac Type Severity Reaction Status Date / Time No Known Allergies Allergy Verified 07/10/21 07:58 Review of Systems Review of Systems: CONSTITUTIONAL: Denies fever, chills, or sweats. EYES: Denies visual changes, redness, or discharge. ENT: Denies rhinorrhea, congestion, sore throat, or otalgia. CARDIOVASCULAR: Denies chest pain, palpitations, or edema. RESPIRATORY: Denies cough or dyspnea. GASTROINTESTINAL: Denies abdominal pain, nausea, vomiting, or diarrhea. GENITOURINARY: Denies dysuria or hematuria. SKIN: Denies rash or itching. MUSCULOSKELETAL: Denies back pain, joint pain, or myalgia. NEUROLOGIC: Denies headache, numbness, or weakness. PSYCHIATRIC: Denies anxiety or depression. [facility] Past Medical History Medical History Anxiety HLD (hyperlipidemia) Hypothyroidism IBS (irritable bowel syndrome) Injury of right knee Medial meniscus tear Migraine headache Surgical History Surgical History H/O dilation and curettage x2 History of appendectomy History of cholecystectomy Family History Family History Father Family history of malignant neoplasm of gastrointestinal tract Other Diabetes mellitus Family history of allergic disorder Hypertension Social History Social History Smoking status: Never smoker Alcohol intake: current Gender identity (if verbalized by the patient): Female Exam Narrative: General appearance: Well-developed, well-nourished Skin: Normal color Head: Normocephalic, nontraumatic Eyes: Clear conjunctiva ENT: Oropharynx normal, ears normal, nose normal Neck: Supple, nontender Chest and respiratory: Airway patent, no respiratory distress, no accessory muscle use Heart: Regular rate/rhythm Abdomen: Soft, nontender, no organomegaly, quiet bowel sounds Vascular: Normal peripheral pulses, normal capillary refill. Musculoskeletal: Normal range of motion, nontender back Neurologic: Alert and oriented ?3, ACCOUNT ADJUSTER is normal as tested, no gross motor deficit Course Course Emergency Course: Improved Vital Signs Vital signs: Vital Signs Temperature 36.6 C 07/10/21 07:56 Pulse Rate 102 H 07/10/21 07:56 Respiratory Ra
[2021-07-10] MEDS: SODIUM CHLORIDE 0.9% IV 1,000 ML 999 ML IV CONT (09:49)
[2021-07-10] MEDS: KETOROLAC 30 MG/ML VIAL (*BKC) IV PUSH (09:49)
[2021-07-10] MEDS: LORazepam INJ (*CRX) 2 MG/ML VIAL 1 MG IV PUSH (09:50)
[2021-07-10] MEDS: METOCLOPRAMIDE HCL INJ 10 MG/2 ML VIAL IV PUSH (09:51)
[2021-07-10] MEDS: diphenhydrAMINE HCl INJ 50 MG/ML VIAL IV PUSH (09:52)
[2021-07-10 09:53] VITALS: BP 125/78; PULSE 100; RESP 20; O2SAT 98
[2021-07-10 10:36] VITALS: BP 122/77; PULSE 92; RESP 20; O2SAT 99
[2021-07-10 11:21] VITALS: BP 132/80; PULSE 88; RESP 20; O2SAT 100
== END 2021-07-10 11:22 | disposition home or self-care (01) ==
PROVIDERS: Emergency Provider Emergency Medicine; PCP Internal Medicine
DX: G43.909 Migraine, unspecified, not intractable, without status migrainosus (principal); F41.9 Anxiety disorder, unspecified; E78.5 Hyperlipidemia, unspecified; E03.9 Hypothyroidism, unspecified; Z87.19 Personal history of other diseases of the digestive system
CPT/HCPCS: 96361; 96374; 96375; 99284; J1200; J1885; J2060; J2765; J7030

== ENCOUNTER 2021-07-12 18:36 | Observation (INO) | payer OTHER, SELFPAY ==
[2021-07-12] VITALS (26 sets, daily range): BP systolic 118–144; BP diastolic 68–89; PULSE 68–104; RESP 15–32; TEMP 36.2–36.8; O2SAT 97–100; BMI 37.0
--- NOTE | ~2021-07-12 | MR_ITS ---
EXAMINATION: MR brain/brain stem wo/w con DATE: 07/13/2021 08:12 INDICATION: Complex migraine with left-sided weakness. Slurred speech. TECHNIQUE: Magnetic resonance imaging (MRI) of the brain and brainstem was performed without and with 18 L MultiHance intravenous contrast. Sequences included sagittal and axial T1-weighted FSE, axial d iffusion-weighted FS EPI, axial T2*-weighted GRE, axial T2-weighted FLAIR Propeller, and axial T2-gio ghted Propeller. Postcontrast sequences included axial and coronal T1-weighted FSE. Apparent diffusio n coefficient (ADC) maps were created. COMPARISON: Head CT 07/12/2021 FINDINGS: There is no intracranial hemorrhage, acute infarction, or abnormal intracranial mass lesion . The ventricles are normal in size. The paranasal sinuses are clear. The orbits are normal. The mast oid air cells are normal. IMPRESSION: 1. Normal brain. Reviewed, dictated and finalized at location [facility]. IMPRESSION: 1. Normal brain.
--- NOTE | ~2021-07-12 | CT_ITS ---
EXAMINATION: CT brain wo con DATE: 07/12/2021 19:34 INDICATION: Left sided paresis, weakness TECHNIQUE: Computed tomography (CT) of the head was performed without intravenous contrast. The mA wa s adjusted according to patient size. Iterative reconstruction technique was employed. Exam dose: 60 5.33 mGy-cm total exam DLP. COMPARISON: 05/30/2020 CT brain carotid 05/30/2020 CT brain FINDINGS: No intracranial mass lesion or hemorrhage or cerebrovascular accident. No midline shifts or mass effects. Normal ventricular size. Normal pyle-white matter differentiation. No subdural or epidural hematoma. No skull fracture or bone destruction. Included paranasal sinuses and mastoid air cells are unremarkable. IMPRESSION: Negative Reviewed, dictated and finalized at Location [facility]. Reviewed, dictated and finalized at location A. IMPRESSION: Negative
[2021-07-12 20:03] LABS: Basophils Absolute Auto 0.1 K/mm3 (0.0-0.1); Basophils Percent Auto 0.5 % (0.2-1.2); Eosinophils Absolute Auto 0.2 K/mm3 (0-0.3); Eosinophils Percent Auto 1.8 % (0-4.4); Hematocrit 39.2 % (37.0-47.0); Hemoglobin 13.5 g/dL (12.0-15.0); Immature Granulocyte Absolute 0.03 K/mm3 (0.00-0.031); Immature Granulocyte Percent A 0.3 % (0-0.5); Lymphocytes Absolute Auto 3.32 K/mm3 (0.9-3.2); Lymphocytes Percent Auto 34.4 % (18.3-44.2); Mean Corpuscular HGB Conc 34.4 g/dl (32-36); Mean Corpuscular Hemoglobin 32.2 pg (26-34); Mean Corpuscular Volume 93.6 fl (80-100); Mean Platelet Volume 9.9 fl (7.4-10.4); Monocytes Absolute Auto 0.7 K/mm3 (0.1-0.6); Monocytes Percent Auto 6.8 % (2.6-8.5); Neutrophils Absolute Auto 5.4 K/mm3 (1.3-6.7); Neutrophils Percent Auto 56.2 % (45.5-73.1); Platelet Count Result 350 k/mm3 (150-375); Red Blood Count 4.19 M/mm3 (4.2-5.4); Red Cell Distribution Width 12.4 % (11.5-14.5); White Blood Count 9.7 K/mm3 (4.5-10.0)
[2021-07-12] MEDS: SODIUM CHLORIDE 0.9% IV 1,000 ML 999 ML IV CONT (20:04)
[2021-07-12] MEDS: METOCLOPRAMIDE HCL INJ 10 MG/2 ML VIAL IV PUSH (20:05)
[2021-07-12] MEDS: diphenhydrAMINE HCl INJ 50 MG/ML VIAL IV PUSH (20:05)
[2021-07-12 20:11] LABS: Alanine Aminotransferase 29 U/L (4-35); Albumin Level 4.5 g/dL (3.5-5.1); Alkaline Phosphatase 98 U/L (38-126); Anion Gap 12 mmol/L (8-16); Aspartate Amino Transferase 36 U/L (14-36); Bilirubin,Total 0.6 mg/dL (0.2-1.3); Blood Urea Nitrogen 11 mg/dL (7-17); Carbon Dioxide 20 mmol/L (22-30); Chloride 111 mmol/L (98-107); Estimated CRCL calculation 120 ml/min; Estimated Glomerular Filt Rate > 60; Glucose 95 mg/dL (65-110); Potassium 4.4 mmol/L (3.4-5.0); Sodium 143 mmol/L (137-145)
--- NOTE | 2021-07-12 20:23 | ED.NEUROSD ---
HPI - Neuro Symptoms/Deficit General Chief Complaint: Suspected CVA Stated Complaint: suspected cva Time Seen by Provider: 07/12/21 19:15 History of Present Illness HPI Narrative: Patient 31-year-old female presents emerged department with chief complaint of possible complex migraine. The patient states that she is followed by Dr. shelton with neurology and reports that she has been having issues with migraine headaches that have been getting worse the patient states that today she started having worsening slurred speech and then noticed that her left arm and left leg were going numb and she also had significant weakness in her left upper extremity and left lower extremity patient states this is worse than her typical migraine the patient called Dr. Shelton and was instructed to come to the emergency department. Related Data Home Medications Medication Instructions Recorded Confirmed albuterol sulfate 90 mcg/actuation 1 puff INHALATION Q4H PRN 10/15/19 02/20/21 aerosol inhaler citalopram 20 mg tablet 20 mg PO DAILY 10/15/19 02/20/21 dicyclomine 10 mg capsule 10 mg PO .PRN cap 10/15/19 02/20/21 levocetirizine 5 mg tablet 5 mg PO DAILY 10/15/19 02/20/21 levothyroxine 50 mcg tablet 75 mcg PO DAILY 10/15/19 02/20/21 montelukast 10 mg tablet 10 mg PO DAILY 10/15/19 02/20/21 omeprazole 40 mg capsule,delayed 40 mg PO DAILY 10/15/19 02/20/21 release ethynodiol diac-eth estradiol tablet 05/29/20 02/20/21 [Zovia 1/35E (28)] rizatriptan mg 05/29/20 02/20/21 venlafaxine 75 mg PO QAM 05/29/20 02/20/21 Allergies Allergy/AdvReac Type Severity Reaction Status Date / Time No Known Allergies Allergy Verified 07/10/21 07:58 Review of Systems Review of Systems: A 10 system review of systems was completed on the patient and is negative except for what is stated in the HPI. Nursing and ancillary documentation was reviewed. FOR[facility]LY [facility] Past Medical History Medical History Anxiety HLD (hyperlipidemia) Hypothyroidism IBS (irritable bowel syndrome) Injury of right knee Medial meniscus tear Migraine headache Surgical History Surgical History H/O dilation and curettage x2 History of appendectomy History of cholecystectomy Family History Family History Father Family history of malignant neoplasm of gastrointestinal tract Other Diabetes mellitus Family history of allergic disorder Hypertension Social History Social History Smoking status: Never smoker Alcohol intake: current Gender identity (if verbalized by the patient): Female Exam Narrative: GENERAL: Well-appearing, well-nourished, and in no acute distress. HEAD: Normocephalic, atraumatic. EYES: PERRLA and EOMI. ENT: Nares clear, no rhinorrhea or epistaxis. Mucous membranes moist. NECK: Supple. CHEST: Clear to auscultation. No respiratory distress. HEART: Regular rate and rhythm. No murmur heard. Normal peripheral pulses. ABDOMEN: Soft, nontender, nondistended, normal active bowel sounds. EXTREMITIES: Normal range of motion. No edema. SKIN: Warm, dry, no rash. NEURO: Alert and oriented x3. Speech is somewhat slurred left upper extremity and left lower extremity are weak to exam. PSYCH: Normal mood and affect. Course Course Emergency Course: The case was discussed with the patient's neurologist who recommended admitting the patient for MRI and for neurology consultation. The patient was given standard migraine treatment and has had improvement in her symptoms. Vital Signs Vital signs: Vital Signs Temperature 36.8 C 07/12/21 18:51 Pulse Rate 68 07/12/21 18:51 Respiratory Rate 18 07/12/21 18:51 Blood Pressure 144/68 H 07/12/21 18:51 Pulse Oximetry 99 07/12/21 18:51 Temperature 36.8 C 0
[2021-07-12] MEDS: KETOROLAC 30 MG/ML VIAL (*BKC) IV PUSH (21:06)
--- NOTE | 2021-07-12 21:10 | PM.IMHP ---
H&P: HPI History of Present Illness Date/Time: 07/12/21 21:10 Chief Complaint: Migraine Narrative: This is a 31-year-old female with past medical history significant for complex migraine headaches, she presented to emergency room with left-sided hemibody left upper extremity weakness and speech disturbance she has been having migraine headache now for about a week she had presented to the emergency room 2 or 3 days before and was treated and sent home today she returned after she had this episode. She denies any vision changes no fevers no rigors no chills no cough no sputum production no shortness of breath the migraine headache is localized to the right hemicrania area start and at the frontal region above right orbital area and it goes all the way to the occipital area. Preliminary workup has been essentially nonrevealing urinalysis was significant for some wbc's she denies any pain or burning with urination. A CT of the head did not show any acute abnormality. Review of Systems Review of Systems: Migraine headache left upper extremity weakness Constitutional: Constitutional: Denies chills, Denies fatigue, Denies fever(s) and Denies malaise Eyes: Eyes: Denies change in vision ENT: Denies dysphagia, Denies vertigo, Reports headache(s), Denies nasal congestion, Denies nasal discharge, Denies nasal obstruction and Denies odynophagia Cardiovascular: Cardiovascular: Denies diaphoresis, Denies irregular heart rhythm, Denies claudication, Denies lightheadedness, Denies radiating jaw, neck or arm pain, Denies palpitations, Denies dyspnea, Denies dyspnea on exertion and Denies orthopnea Respiratory: Respiratory: Denies cough, Denies dyspnea and Denies wheezing Gastrointestinal: Gastrointestinal: Denies abdominal pain, Denies diarrhea, Denies nausea and Denies vomiting Genitourinary: Genitourinary: Reports no additional female genitourinary complaints Musculoskeletal: Musculoskeletal: Reports no additional musculoskeletal complaints Integumentary/Breasts: Skin/Breast: Reports system reviewed and no additional complaints, except as docu Neurologic: Denies vertigo, Denies dizziness, Reports headache(s), Reports focal weakness (Left upper extremity), Reports Sensory deficit (Neuro) and Reports weakness Psychiatric: Psychiatric: Reports no additional psychiatric complaints Endocrine: Endocrine: Reports no additional endocrine complaints Hematologic/Lymphatic: Hematologic/Lymphatic: Reports no additional hematologic/lymphatic complaints Allergic/Immunologic: Allergic/Immunologic: Reports no additional allergic/immunologic complaints PMFSH Past Medical History Medical History Anxiety HLD (hyperlipidemia) Hypothyroidism IBS (irritable bowel syndrome) Injury of right knee Medial meniscus tear Migraine headache Surgical History Surgical History H/O dilation and curettage x2 History of appendectomy History of cholecystectomy Family History Family History (Updated 07/12/21 @ 23:08 by Sarahy Ramos RN) Father Family history of malignant neoplasm of gastrointestinal tract Diabetes mellitus Hypertension Grandparent Diabetes mellitus Other Family history of allergic disorder Social History Social History Smoking status: Never smoker Second hand tobacco smoke exposure: No Alcohol intake: never Substance use: never Substance use type: does not use Gender identity (if verbalized by the patient): Female Spiritual care concerns: No Meds Home Medications and Allergies Home Medications Medication Instructions Recorded Confirmed Type albuterol sulfate 90 mcg/actuation 2 puff INHALATION Q4H PRN 10/15/19 07/13/21 History aerosol inhaler citalopram 20 mg tablet 20 mg PO DAILY 10/15/19 02/20/21 History dicyclomine 10
[2021-07-12 21:59] LABS: Add Urine Microscopic? YES; Appearance Urine Cloudy (Clear); Bacteria Urine 1+ /hpf; Bilirubin Urine Negative (Negative); Blood Urine Negative (Negative); Color Urine Yellow (Yellow); Glucose Urine UA Negative (Negative); Ketones Urine Negative (Negative); Leukocyte Esterase Ur 2+ LEU/UL (Negative); Mucus Urine Rare /lpf; Nitrate Urine Negative (Negative); Protein Urine Negative (Negative); Specific Grav Ur 1.016 (1.001-1.035); Squamous Epithelial Cell Urine Few /hpf (Few)
--- NOTE | 2021-07-12 23:20 | ADMGEN ---
This patient, Dina Moody, was admitted to [facility]. Patient/family oriented to hospital policies and general routines including ID bracelet, bed and alarms, visiting hours, pain management, procedures, bathroom and other care routines, personal items, smoking policy, room service/diet, and visiting hours. Information on how to activate the Rapid Response Team has been discussed. Patient/Family are encouraged to report perceived risks to care and to ask questions if they do not understand what they are told or what they should do.
[2021-07-13] MEDS: SODIUM CHLORIDE 0.9% IV 1,000 ML 125 ML IV CONT (00:18)
[2021-07-13] MEDS: TOPIRAMATE 100 MG TABLET PO ×2 (02:00→21:45)
[2021-07-13] MEDS: PANTOPRAZOLE 40 MG TABLET PO ×2 (02:01→21:44)
[2021-07-13] MEDS: VENLAFAXINE HCL XR 75 MG CAP.ER.24H PO ×2 (02:01→21:48)
[2021-07-13] MEDS: MONTELUKAST SODIUM 10 MG TABLET PO ×2 (02:01→21:45)
[2021-07-13] MEDS: LEVOTHYROXINE SODIUM 75 MCG TABLET PO ×2 (02:01→21:44)
[2021-07-13 06:00] VITALS: BP 120/76; PULSE 97; RESP 18; TEMP 36.7; O2SAT 99
[2021-07-13] MEDS: SUMAtriptan SUCCINATE 25 MG TABLET 100 MG PO (06:10)
[2021-07-13 08:10] VITALS: BP 125/74; PULSE 77; RESP 20; TEMP 36.1; O2SAT 99
[2021-07-13] MEDS: KETOROLAC 30 MG/ML VIAL (*BKC) IV PUSH ×3 (09:29→20:49)
--- NOTE | 2021-07-13 09:49 | WPDNEURCNPN ---
Assessment and Plan Additional Plan recurrent migraines with neurological signs and symptoms evaluation up until now includes a CBC without leukocytosis, BMP alvaro, SARS-CoV-2 its etiology -1 June 11, 2021, an MRI of the brain is negative as well she will be treated symptomatically at this particular time and further adjustment in the medication will be made accordingly Consult date: 07/13/21 Time Seen: 09:30 HPI: Dina Modoy is a 31 year old female admitted to the hospital for the acute exacerbation of the headache in addition to the ongoing history of complex migraine. He presented to the emergency room with left-sided weakness involving the left upper extremity and his speech disturbances as well she had been experiencing migraine headache for Hold week and had been seen in the emergency room several days before when she was treated and sent home he gave no history of associated visual difficulties she gave the history of staph headache starting in the right frontal area spreading all the way to the occipital area and also left upper extremity weakness without any other neurological symptomatology. She does have ongoing history of 1. Hypothyroidism 2. Irritable bowel syndrome 3. Hyperlipidemia 4. Anxiety and in the past has undergone appendectomy and cholecystectomy. She is not a smoker not drink and does not use any substance. Medications at the time of admission in reference to the migraine include topiramate 100 mg HS urology tomas 50 mg p.r.n. amitriptyline 25 mg HS , venlafaxine 75 mg HS and citalopram 20 mg daily Review of Systems Review of Systems: All systems reviewed & are unremarkable except as noted in HPI and below PMFSH Past Medical History Medical History Anxiety HLD (hyperlipidemia) Hypothyroidism IBS (irritable bowel syndrome) Injury of right knee Medial meniscus tear Migraine headache Surgical History Surgical History H/O dilation and curettage x2 History of appendectomy History of cholecystectomy Family History Family History Father Family history of malignant neoplasm of gastrointestinal tract Diabetes mellitus Hypertension Grandparent Diabetes mellitus Other Family history of allergic disorder Social History Social History Smoking status: Never smoker Second hand tobacco smoke exposure: No Alcohol intake: never Substance use: never Substance use type: does not use Gender identity (if verbalized by the patient): Female Spiritual care concerns: No Meds Home Medications and Allergies Home Medications Medication Instructions Recorded Confirmed Type albuterol sulfate 90 mcg/actuation 2 puff INHALATION Q4H PRN 10/15/19 07/13/21 History aerosol inhaler dicyclomine 10 mg capsule 10 mg PO QID PRN cap 10/15/19 07/13/21 History montelukast 10 mg tablet 10 mg PO HS 10/15/19 07/13/21 History omeprazole 40 mg capsule,delayed 40 mg PO HS 10/15/19 07/13/21 History release venlafaxine 75 mg PO HS 05/29/20 07/13/21 History ubrogepant 50 mg tablet 50 mg PO ONCE #8 tablet 02/20/21 07/13/21 Rx levocetirizine [Xyzal] 5 mg PO HS 07/13/21 07/13/21 History levothyroxine 75 mcg PO HS 07/13/21 07/13/21 History topiramate [Topamax] 100 mg PO HS 07/13/21 07/13/21 History Allergies Allergy/AdvReac Type Severity Reaction Status Date / Time No Known Allergies Allergy Verified 07/12/21 23:19 Vital Signs Vital Signs - 24 hr 07/12/21 18:51 07/12/21 19:00 07/12/21 19:02 Temperature 36.8 C Pulse Rate 68 92 96 Respiratory Rate 18 20 Blood Pressure 144/68 H 129/81 Pulse Oximetry 99 100 100 07/12/21 19:03 07/12/21 19:15 07/12/21 19:16 Temperature Pulse Rate 90 89 95 Respiratory Rate 23 H 21 H 20 Blood Pressure 135/83 Pulse Oximetry 100 100 97 07/12/21 19:49 09
--- NOTE | 2021-07-13 09:51 | PC.NURSE ---
0850- Pt c/o ALTAMIRANO 05/02, dose of Immitrex did not improve ALTAMIRANO. Hospitalist notified, orders noted. Neurology notified as well.
--- NOTE | 2021-07-13 11:42 | PC.NURSE ---
1000 Pt reports ALTAMIRANO has decreased to 5/10 and is feeling better.
[2021-07-13 14:00] VITALS: BP 121/66; PULSE 77; RESP 18; TEMP 36.1; O2SAT 98
--- NOTE | 2021-07-13 14:06 | PHAR ---
The patient's home med of Balcoltra oral contraceptive (levonorgestrel 0.1mg/ethinyl estradiol 0.02mg/ferrous bisglycinate) has been verified.
--- NOTE | 2021-07-13 17:38 | PM.IMPN ---
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 -Topamax has been increased to every 12 hours -consider verapamil if she does not have improvement soon. (2) Acute left-sided muscle weakness: Code(s): M62.81 - Muscle weakness (generalized) Status: Acute Assessment and Plan: As above Time Spent With Patient Time with patient: 25 - 35 minutes Subjective Date/time seen: 07/13/21 17:38 Interval history: Pt is a 31-year-old female here for migraine and possible UTI. Patient was seen today and states her weakness on her left side has improved but is not back to her normal. She is still struggling with her speech. She says she has a history of migraines that has affected her weakness but never her speech. She sees Dr. Matos for this. The Toradol is helping her. Review of Systems Review of Systems: All systems reviewed & are unremarkable except as noted in HPI and below Exam Narrative: General: Well developed well nourished patient in NAD HEENT: normocephalic Neck: supple Neuro: Alert and oriented x4. Speech delayed and slurred. Equal strength the upper lower extremities 5/5 CV:RRR Resp:CTA Abd: Soft, non distended. No pain to palpation. Positive bowel sounds Extremities: No swelling, erythema, or pain to palpation. Objective Data Vital Signs Vital Signs: Vital Signs - 24 hr 07/12/21 18:51 07/12/21 19:00 07/12/21 19:02 Temperature 98.2 F Pulse Rate 68 92 96 Respiratory Rate 18 20 Blood Pressure 144/68 H 129/81 Pulse Oximetry 99 100 100 07/12/21 19:03 07/12/21 19:15 07/12/21 19:16 Temperature Pulse Rate 90 89 95 Respiratory Rate 23 H 21 H 20 Blood Pressure 135/83 Pulse Oximetry 100 100 97 07/12/21 19:49 07/12/21 20:09 07/12/21 20:10 Temperature Pulse Rate 88 98 104 H Respiratory Rate 20 21 H 21 H Blood Pressure 125/89 Pulse Oximetry 99 99 100 07/12/21 20:16 07/12/21 20:17 07/12/21 20:38 Temperature Pulse Rate 95 91 85 Respiratory Rate 20 20 20 Blood Pressure 133/88 Pulse Oximetry 99 100 99 07/12/21 20:45 07/12/21 20:47 07/12/21 21:00 Temperature Pulse Rate 82 83 88 Respiratory Rate 18 21 H 20 Blood Pressure 118/75 Pulse Oximetry 100 100 100 07/12/21 21:02 07/12/21 21:15 07/12/21 21:16 Temperature Pulse Rate 83 87 86 Respiratory Rate 32 H 17 21 H Blood Pressure 124/84 125/81 Pulse Oximetry 100 99 98 07/12/21 21:30 07/12/21 21:32 07/12/21 21:47 Temperature Pulse Rate 83 82 93 Respiratory Rate 19 15 26 H Blood Pressure 120/69 Pulse Oximetry 100 100 99 07/12/21 22:01 07/12/21 22:15 07/12/21 22:39 Temperature Pulse Rate 90 81 88 Respiratory Rate 20 20 22 H Blood Pressure 125/81 Pulse Oximetry 100 99 100 07/12/21 23:05 07/12/21 23:30 07/13/21 06:00 Temperature 97.1 F L 98.0 F Pulse Rate 87 97 Respiratory Rate 16 18 Blood Pressure 127/76 120/76 Pulse Oximetry 100 100 99 07/13/21 08:10 07/13/21 14:00 Temperature 96.9 F L 96.9 F L Pulse Rate 77 77 Respiratory Rate 20 18 Blood Pressure 125/74 121/66 Pulse Oximetry 99 98 Intake/Output Intake/Output: Intake & Output 07/10/21 07/11/21 07/12/21 07/13/21 23:59 23:59 23:59 23:59 Intake Total 1000 980 Output Total 600 Balance 1000 380 Meds/Results Medications: Active Medications Generic Name Dose Route Start Last Admin Trade Name Freq PRN Reason Stop D
[2021-07-13 20:00] VITALS: O2SAT 98
--- NOTE | 2021-07-13 20:01 | PC.NURSE ---
RN contacted Dr. Stephens for an order for Tylenol to get patient by with headache/migraine until next dose of Toradol is due. Dr. Stephens said it's ok to give Toradol now.
[2021-07-13 21:26] VITALS: BP 114/61; PULSE 78; RESP 18; TEMP 36.7; O2SAT 98
[2021-07-14 06:00] VITALS: BP 138/69; PULSE 88; RESP 16; TEMP 36.7; O2SAT 98
[2021-07-14 08:00] VITALS: BP 116/72; PULSE 92; RESP 16; TEMP 36.1; O2SAT 100
[2021-07-14] MEDS: LORATADINE 10 MG TABLET PO (09:16)
[2021-07-14] MEDS: TOPIRAMATE 100 MG TABLET PO (09:16)
--- NOTE | 2021-07-14 10:05 | PC.NURSE ---
GABRIEL SMITH HERE TO SEE PT. CONDITION UPDATE GIVEN.
--- NOTE | 2021-07-14 10:44 | PM.DS ---
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 -Topamax has been increased to every 12 hours (2) Acute left-sided muscle weakness: Code(s): M62.81 - Muscle weakness (generalized) Status: Acute Assessment and Plan: As above DS: Summary Hospital Course Hospital Course: Date of service 07/14/2021 Patient is a 31-year-old female with a history of migraines who presented emergency room for worsening headaches, slurred speech and left arm and leg numbness/weakness. She has history of weakness in her left extremities with migraines but this was worse than her typical migraines. Vitals in the ER were temperature 36.8? C, pulse 68, respiratory rate 18, blood pressure 144/68, pulse ox 99 on room air. CBC within normal limits. BMP relatively normal with exception of chloride 111, CO2 20, creatinine 0.6. CT of the brain negative. Patient was admitted to the hospitalist service and observed. Her weakness in her left lower extremity and left upper extremity did improve. Her speech did improve as well but was still affected the day of discharge. Neurology was consulted and did increase her Topamax to 100 mg b.i.d.. She did have relief from her headaches with the Toradol. She has seen Claire in the past with her headache clinic I suggest that she follow-up with them as well. Day of discharge patient is improving and okay for discharge. I spoke with Dr. Matos who recommended increasing her Topamax to 100 mg b.i.d. I did speak with the patient about lowering they efficacy of her control and she is going to take extra precautions. Patient was educated about the worrisome signs and symptoms come back to emergency room for and was discharged stable condition. Status at Discharge Functional status at discharge: independent ambulation Time Spent with Patient Time attestation: Total time spent providing and/or coordinating discharge services:38 min Time spent: Greater than 30 minutes Exam Narrative: General: Well developed well nourished patient in NAD HEENT: normocephalic Neck: supple Neuro: Alert and oriented x4. Speech delayed and slurred. Equal strength the upper lower extremities 5/5 CV:RRR Resp:CTA Abd: Soft, non distended. No pain to palpation. Positive bowel sounds Extremities: No swelling, erythema, or pain to palpation. DS: Data Data Completed and Pending Labs on day of discharge: Labs from last 24 hours 07/14/21 07/13/21 04:45 09:10 Vitamin B12 Pending TSH (Reflex) 1.810 Discharge Plan Discharge Attending physician on discharge: Petra Sommer Consulting providers: Arnol Matos Discharging Clinician: Yoli Olson Patient Disposition: Home, Self-Care Activity: as tolerated Diet: regular Discharge Instructions: -please note your medications have changed -okay to take ibuprofen or Motrin for headaches as needed -follow up with Dr. Matos in 6 weeks about this stay -as discussed, if you continue to have migraines you might want to follow-up with [place] or [facility] headache clinic -If you have stroke like symptoms which include: numbness/tingling to any part of the body, asymmetrical features, problems with speech, problems with word-finding, problems with balance or walking, or worsened confusion call 911 -worrisome signs and symptoms to come back to emergency room for: Worsening pain, chest pain, shortness of breath, progressive significant weakness, fevers 100.4
--- NOTE | 2021-07-14 11:10 | PC.NURSE ---
DR. CARMONA HERE TO SEE PT.
--- NOTE | 2021-07-14 12:40 | PC.NURSE ---
DISCHARGE INSTRUCTIONS GIVEN AND REVIEWED W/ PT. QUESTIONS ANSWERED AND VOICED UNDERSTANDING OF ALL. NO CHANGE IN EARLIER ASSESSMENT. VOICES NO C/O. STEADY GAIT. DENIES HEADACHE. DISCHARGED HOME, OUT VIA WC TO 'S WAITING CAR WITH ALL PERSONAL BELONGINGS AND DISCHARGE PACKET. NO DISTRESS NOTED. HOME CONTROL PILLS HAVE BEEN RETURNED.
== END 2021-07-14 12:40 | disposition home or self-care (01) ==
LOC: ANHED 20:34 → ANHCPC 22:11
PROVIDERS: Physician Assistant; Admitting Provider Internal Medicine; Emergency Provider Emergency Medicine; PCP Internal Medicine; Visit Provider Family Medicine
DX: G43.109 Migraine with aura, not intractable, without status migrainosus (principal); R47.81 Slurred speech; G81.94 Hemiplegia, unspecified affecting left nondominant side; E03.9 Hypothyroidism, unspecified; E78.5 Hyperlipidemia, unspecified
CPT/HCPCS: 36415; 70450; 70553; 80053; 81001; 81025; 82607; 84443; 85025; 87086; 96361; 96365; 96374; 96375; 96376; 99285; A9270; G0378; J0696; J1200; J1885; J2765; J7030

== ENCOUNTER 2022-03-25 00:46 | Day surgery (SDC) | payer OTHER, SELFPAY ==
[2022-03-23 08:14] VITALS: BMI 37.6
--- NOTE | 2022-03-23 09:53 | SUR.PREOP ---
Report to the Outpatient Waiting Room, entrance under the green pavilion located off [facility], at time 1045 on date 03/25/22. OR Time: 1245. - You and your visitor will be asked a series of questions to screen for COVID 19 for your protection. - Only one visitor is allowed at this time. - The patient visitor is requested to leave or wait in car when not with patient. - A mask is required within the hospital. Patients may have clear liquids (water, carbonated beverages, clear teas, apple juice) until 3 hours prior to surgery with a maximum of 20 ounces. - No food from midnight until time of surgery - Infants may have breast milk until 4 hours before surgery, infant formula 6 hours prior to surgery. - Children will be allowed to drink immediately following surgery. If applicable, please bring a bottle or sippy cup to assist with drinking. Juice, water, soda, and popsicles are readily available. For infants on formula, please bring formula the day of surgery. Pacifiers are allowed. Take the following medications with a SIP of water the morning of surgery: BRING INHALER Medications to discontinue per physician STOP VITAMINES AND SUPPLIMENTS 3 DAYS PRIOR Date to take last dose 03/22/22 Please no make-up, nail gabonese, hairspray, perfume, deodorant, or body powder the day of surgery. No jewelry (including any body piercings) or valuables the day of surgery, leave them at home. Please take a shower or bath the night before, or the morning of, surgery with an antibacterial soap. Wear comfortable, loose fitting clothing. Children are encouraged to wear pajamas. - Jewelry must be removed prior to entering the operating room. Rings and piercings that are not removed may be cut off. - The hospital will not accept responsibility for valuables. - Please leave all valuables, including medications, at home the day of surgery. If you are going home after surgery, a licensed customer service driver must drive you home. - NO public transportation without another adult. - We recommend that an adult stay with you for 24 hours following discharge. - We also recommend that you do not drive, make important decision, drink alcoholic beverages, or take any drugs that were not prescribed by your health care provider for at least 24 hours after your discharge time. For Pediatric surgeries, we recommend two adults accompany the child home (only one inside the building at this time). Follow any additional instructions given to you from your surgeon. If you or anyone in your household have experienced Covid symptoms in the past week, please notify your surgeon or the nurse liaison at the phone number below for possible testing. Telephone instructions given to KALLIE URIAS and asked if any additional questions and then verbalized understanding. Patient advised to call surgeon office or pre surgery nurse liaison [phone] if any additional questions.
[2022-03-25] VITALS (9 sets, daily range): BP systolic 117–131; BP diastolic 66–78; PULSE 66–92; RESP 16–22; TEMP 36.2–36.7; O2SAT 92–100
[2022-03-25] MEDS: ACETAMINOPHEN 500 MG TABLET 1000 MG PO (11:45)
[2022-03-25] MEDS: LACTATED RINGERS 1,000 ML 30 ML IV CONT ×2 (12:15→14:41)
[2022-03-25] MEDS: KETOROLAC 15 MG/ML VIAL (*BKC) IV PUSH (12:16)
--- NOTE | 2022-03-25 12:17 | PM.IMHP ---
H&P: HPI History of Present Illness Date/Time: 03/25/22 12:17 Chief Complaint: Heavy periods. Narrative: 32 y/o who has finished with childbearing. Her menses are heavy and prolonged. 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 She desires surgical management. Review of Systems Review of Systems: All systems reviewed & are unremarkable except as noted in HPI and below PMFSH Past Medical History Medical History Anxiety HLD (hyperlipidemia) Hypothyroidism IBS (irritable bowel syndrome) Injury of right knee Medial meniscus tear Migraine headache Surgical History Surgical History H/O dilation and curettage x2 History of appendectomy History of cholecystectomy Family History Family History Father Family history of malignant neoplasm of gastrointestinal tract Diabetes mellitus Hypertension Grandparent Diabetes mellitus Other Family history of allergic disorder Social History Social History Smoking status: Never smoker Second hand tobacco smoke exposure: No Alcohol intake: never Substance use: never Substance use type: does not use Living arrangements: with family Gender identity (if verbalized by the patient): Female Spiritual care concerns: No Meds Home Medications and Allergies Home Medications Medication Instructions Recorded Confirmed Type albuterol sulfate 90 mcg/actuation 2 puff inhalation Q4H PRN Dyspnea 10/15/19 03/25/22 History aerosol inhaler (Ventolin HFA) dicyclomine 10 mg capsule 10 mg PO QID PRN Abdominal Pain 10/15/19 03/25/22 History montelukast 10 mg tablet 10 mg PO HS 10/15/19 03/25/22 History (Singulair) omeprazole 40 mg capsule,delayed 40 mg PO HS 10/15/19 03/25/22 History release venlafaxine 75 mg tablet,extended 75 mg PO HS 05/29/20 03/25/22 History release 24 hr ubrogepant 50 mg tablet (Ubrelvy) 50 mg PO ONCE #8 tabs 02/20/21 03/25/22 Rx levocetirizine 5 mg tablet (Xyzal) 5 mg PO HS 07/13/21 03/25/22 History levothyroxine 75 mcg tablet 75 mcg PO HS 07/13/21 03/25/22 History cyanocobalamin (vitamin B-12) 1,000 mcg PO HS 03/23/22 03/25/22 History 1,000 mcg capsule magnesium 250 units PO HS 03/23/22 03/25/22 History verapamil 80 mg tablet 160 tablet PO BID 03/23/22 03/25/22 History prednisone 50 mg tablet 50 mg PO HS 03/25/22 03/25/22 History Allergies Allergy/AdvReac Type Severity Reaction Status Date / Time bupropion [From Wellbutrin] Allergy Intermediate Rash Verified 03/25/22 11:30 Exam Const: Orientation/consciousness: patient oriented x3 Other: Well-developed, well-nourished female in no acute distress. Neck: Thyroid: thyroid normal Lymphatic: no lymphadenopathy noted (in neck, axilla or inguinal nodes) Resp: Effort & Inspection: normal respiratory effort Auscultation: clear to auscultation bilaterally Cardio: Rate: regular rate Rhythm: regular rhythm Heart sounds: S1 normal heart sound present and S2 normal heart sound present GI: Other: ABD: Soft, nontender, nondistended. No guarding or rebound tenderness. No hepatosplenomegaly. : General: Yes no CVA tenderness Other: External genitalia: normal female hair distribution, without lesion. Urethral meatus: no lesion, non prolapsed. Bladder: no mass, nontender Vagina: well-estrogenized, without lesion or discharge. No cystocele or rectocele. Cervix: no lesion or discharge. Uterus: small, anteverted, freely mobile, nontender Adnexa: no mass or tenderness. Anus/perineum: no lesions, nontender Back/Spine/Pelvis: Back: no CVA tenderness Skin: General skin exam: normal color and no rashes or lesions noted Neuro: General: patient oriented x3 Extrem: Other: Extremities: nontender with no edema Psych: Mental Status: men
--- NOTE | 2022-03-25 12:21 | WPDHPUPDATE1 ---
History and Physical Update Update Date/Time: 03/25/22 12:21 History and Physical has been reviewed, including an updated exam of the patient. There are NO changes in the patient's condition. Risks, benefits, and alternatives have been discussed and questions answered. Patient agrees to proceed with procedure.
--- NOTE | 2022-03-25 12:33 | WPDANESEPPF ---
Anes - Initial Pre Proc Eval Procedure: Operation Date: 03/25/22 12:45 Proposed Procedures p Laparoscopic Bilateral Tubal Ligation with Fallopian Rings, Hysteroscopy, Dilation and Curettage, Radha Endometrial Ablation - Vikram Rojas MD Date/Time: 03/25/22 12:33 Surgeon: Vikram Rojas MD Pre Op Diagnosis: Desire Steril, Irrrg Bleeding Patient Data Age: 32 Gender: F Height: 1.57 m Weight: 96.2 kg Allergies Allergy/AdvReac Type Severity Reaction Status Date / Time bupropion [From Wellbutrin] Allergy Intermediate Rash Verified 03/25/22 11:30 Home Medications Medication Instructions Recorded Confirmed Type albuterol sulfate 90 mcg/actuation 2 puff inhalation Q4H PRN Dyspnea 10/15/19 03/25/22 History aerosol inhaler (Ventolin HFA) dicyclomine 10 mg capsule 10 mg PO QID PRN Abdominal Pain 10/15/19 03/25/22 History montelukast 10 mg tablet 10 mg PO HS 10/15/19 03/25/22 History (Singulair) omeprazole 40 mg capsule,delayed 40 mg PO HS 10/15/19 03/25/22 History release venlafaxine 75 mg tablet,extended 75 mg PO HS 05/29/20 03/25/22 History release 24 hr ubrogepant 50 mg tablet (Ubrelvy) 50 mg PO ONCE #8 tabs 02/20/21 03/25/22 Rx levocetirizine 5 mg tablet (Xyzal) 5 mg PO HS 07/13/21 03/25/22 History levothyroxine 75 mcg tablet 75 mcg PO HS 07/13/21 03/25/22 History cyanocobalamin (vitamin B-12) 1,000 mcg PO HS 03/23/22 03/25/22 History 1,000 mcg capsule magnesium 250 units PO HS 03/23/22 03/25/22 History verapamil 80 mg tablet 160 tablet PO BID 03/23/22 03/25/22 History prednisone 50 mg tablet 50 mg PO HS 03/25/22 03/25/22 History Patient hx anesthesia problems: none Family hx anesthesia problems: none Results Review: All pre-operative results and documents have been reviewed as part of the pre-operative evaluation. [facility] Past Medical History Medical History Anxiety HLD (hyperlipidemia) Hypothyroidism IBS (irritable bowel syndrome) Injury of right knee Medial meniscus tear Migraine headache Surgical History Surgical History H/O dilation and curettage x2 History of appendectomy History of cholecystectomy Family History Family History Father Family history of malignant neoplasm of gastrointestinal tract Diabetes mellitus Hypertension Grandparent Diabetes mellitus Other Family history of allergic disorder Social History Social History Smoking status: Never smoker Second hand tobacco smoke exposure: No Alcohol intake: never Substance use: never Substance use type: does not use Living arrangements: with family Gender identity (if verbalized by the patient): Female Spiritual care concerns: No Anes - Eval Final PreProcedure Day of Procedure 03/25/22 12:33 Patient weight: obese Heart: regular rate and rhythm Lungs: clear to auscultation Airway: Mallampati scale class II Neurological: alert and oriented Last oral intake: >/= 8 hours ASA classification: II Emergent: no Anesthetic plan: proceed Anesthesia type and monitoring: general ETT and standard monitoring Results Review: All pre-operative results and documents have been reviewed as part of the pre-operative evaluation. Informed Consent: The patient's anesthetic plan and its attendant risks and benefits were discussed with the patient/family/POA. Questions were solicited and answers provided to the satisfaction of the patient/family/POA.
[2022-03-25] MEDS: LIDOCAINE HCL 1% LOCAL INJ 20 ML VIAL 30 ML INFILTRATE (14:02)
--- NOTE | 2022-03-25 14:02 | P.OP_ITS ---
Procedure Note - Detailed Date of Procedure 03/25/22 Pre-op Diagnosis Menometrorrhagia Desired sterility Post-op Diagnosis Same Procedure Performed Laparoscopic bilateral tubal ligation with Falope rings Hysteroscopy Dilation and sharp curettage Endometrial ablation Surgeon Vikram Rojas MD Anesthesia General and Local (1% lidocaine) Findings Normal appearing uterus, tubes, ovaries, bilateral round and uterosacral ligaments, anterior and posterior cul de sac. The uterus sounded to a depth of 7 cm with a cervical length of 3 cm. Both tubal ostia were seen. 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 Description of Procedure The patient was taken to the operating room where general endotracheal anesthesia was administered. She was prepared and draped in the usual sterile fashion in dorsal lithotomy position. The bladder was drained with a red rubber catheter. A sterile speculum was placed into the vagina. The anterior lip of the cervix was grasped with a single-tooth tenaculum. The acorn uterine manipulator was placed. The speculum was withdrawn. Gloves were changed and attention was turned the abdomen. An infraumbilical skin incision was made with a scalpel. The abdomen was tented and a 5mm bladeless trocar was advanced under direct laparoscopic visualization. Pneumoperitoneum was administered using carbon dioxide gas. A survey of the pelvis and abdomen revealed the findings noted above. A second skin incision was made in the midline above the symphysis pubis and an 8mm bladeless trocar was advanced under direct laparoscopic visualization. The fallopian tube on the right side was followed out to the fimbriated end for identification. It was then grasped in the midportion with the Falope ring applicator. The Falope ring was applied. A good loop of tube was noted to be distal to the ring. Hemostasis was excellent. The device was reloaded and the contralateral tube was similarly identified and ligated. An excellent application was noted here as well. A total of 5mL of 1% lidocaine was infiltrated into the serosa of the proximal tubes for postoperative anesthesia. The ports were withdrawn. The gas was allowed to escape. The skin incisions were reapproximated using interrupted subcuticular sutures of 4 0 Monocryl. Dermaflex was applied externally. Attention was directed to the vagina where the acorn manipulator was withdrawn and the speculum reintroduced. Ten mL of 1% lidocaine was administered in a paracervical block. The cervix was then gently dilated using Hegar dilators until an 8 mm dilator could be passed. Hysteroscopy was performed using sterile saline as a distention medium. Finding s are as noted above. Sharp curettage was then performed, and endometrial curettings were collected on a Telfa pad and passed off to be sent to pathology. Finally, the the Radha device was advanced and endometrial ablation commenced without difficulty. The device was withdrawn and a second look was taken using the hysteroscope. Excellent coverage of the endometrial cavity was noted. The tenaculum was removed. Hemostasis was excellent. Sponge, lap, needle and instrument counts were correct. The patient was awakened and taken to the recovery room in stable condition. I was present and scrubbed through the entire procedure. Implants Falope rings x 2 Estimated Blood Loss 5 Drains No Packing No Pathology Yes (Endometrial curettings) Complications None Condition Stable Disposition PACU
[2022-03-25] MEDS: fentaNYL CITRATE INJ (*CRX) 100 MCG/2 ML VIAL 25 MCG IV PUSH ×8 (14:20→16:06)
[2022-03-25] MEDS: oxyCODONE HCL (*CRX) 5 MG TAB IR PO (15:16)
== END 2022-03-25 16:32 | disposition home or self-care (01) ==
PROVIDERS: PCP Internal Medicine; Visit Provider Obstetrics & Gynecology
PROC: 0UDB8ZZ Extraction of Endometrium, Via Natural or Artificial Opening Endoscopic (ICD-10-PCS; CPT 58558; principal; 2022-03-25 12:45)
DX: N92.1 Excessive and frequent menstruation with irregular cycle (principal); Z30.2 Encounter for sterilization; Q51.9 Congenital malformation of uterus and cervix, unspecified; E78.5 Hyperlipidemia, unspecified; E03.9 Hypothyroidism, unspecified; K58.9 Irritable bowel syndrome, unspecified; F41.9 Anxiety disorder, unspecified; Z79.51 Long term (current) use of inhaled steroids; E66.9 Obesity, unspecified; Z68.38 Body mass index [BMI] 38.0-38.9, adult
CPT/HCPCS: 58671; 58563; 88305; A4264; A9270; J0330; J1100; J1885; J2250; J2405; J2704; J2710; J3010; J7120

== ENCOUNTER 2022-06-16 18:18 | Outpatient (CLI) | payer OTHER, SELFPAY ==
[2022-06-16 18:37] LABS: Basophils Absolute Auto 0.06 K/mm3 (0.00-0.10); Basophils Percent Auto 0.7 % (0.0-1.0); Eosinophils Absolute Auto 0.21 K/mm3 (0.02-0.50); Eosinophils Percent Auto 2.4 % (1.0-6.0); Hematocrit 36.4 % (35.0-49.0); Hemoglobin 12.3 g/dL (12.0-15.0); Immature Granulocyte Absolute 0.03 K/mm3 (0.00-0.00); Immature Granulocyte Percent A 0.3 % (0.0-0.0); Lymphocytes Absolute Auto 3.99 K/mm3 (1.10-4.50); Lymphocytes Percent Auto 46.4 % (18.0-42.0); Mean Corpuscular HGB Conc 33.8 g/dL (32.0-36.0); Mean Corpuscular Hemoglobin 31.9 pg (27.0-31.0); Mean Corpuscular Volume 94.3 fL (78.0-102.0); Mean Platelet Volume 9.8 fl (9.2-11.8); Monocytes Absolute Auto 0.71 K/mm3 (0.10-0.90); Monocytes Percent Auto 8.3 % (2.0-11.0); Neutrophils Absolute Auto 3.6 K/mm3 (1.7-7.2); Neutrophils Percent Auto 41.9 % (50.0-70.0); Platelet Count Result 356 K/mm3 (150-420); Red Blood Count 3.86 M/mm3 (4.20-5.40); White Blood Count 8.6 K/mm3 (4.8-10.8)
[2022-06-16 19:01] LABS: Alanine Aminotransferase 96 U/L (14-59); Albumin Level 3.8 g/dL (3.4-5.0); Alkaline Phosphatase 131 U/L (46-116); Anion Gap 5 mmol/L (8-16); Aspartate Amino Transferase 50 U/L (15-37); Bilirubin,Total 0.3 mg/dL (0.00-1.00); Blood Urea Nitrogen 12 mg/dL (7-18); Carbon Dioxide 27 mmol/L (21-32); Chloride 103 mmol/L (98-108); Estimated Glomerular Filt Rate > 60; Glucose 83 mg/dL (70-99); Osmolality Calculated 278 mOsm/kg (285-295); Sodium 135 mmol/L (136-145); Total Protein 7.2 g/dL (6.4-8.2)
== END 2022-06-16 18:19 | disposition home or self-care (01) ==
PROVIDERS: PCP Internal Medicine; Visit Provider Internal Medicine
DX: D75.839 Thrombocytosis, unspecified (principal); R74.8 Abnormal levels of other serum enzymes
CPT/HCPCS: 36415; 80053; 85025

== ENCOUNTER 2022-07-31 09:29 | Outpatient (CLI) | payer OTHER, SELFPAY ==
[2022-07-31 10:26] LABS: Alanine Aminotransferase 100 U/L (14-59); Alkaline Phosphatase 147 U/L (46-116); Anion Gap 10 mmol/L (8-16); Aspartate Amino Transferase 47 U/L (15-37); Bilirubin,Total 0.3 mg/dL (0.00-1.00); Blood Urea Nitrogen 10 mg/dL (7-18); Calcium 9.4 mg/dL (8.5-10.1); Carbon Dioxide 27 mmol/L (21-32); Chloride 106 mmol/L (98-108); Estimated Glomerular Filt Rate > 60; Glucose 87 mg/dL (70-99); Osmolality Calculated 294 mOsm/kg (285-295); Potassium 4.6 mmol/L (3.5-5.1); Sodium 143 mmol/L (136-145)
== END 2022-07-31 09:30 | disposition home or self-care (01) ==
LOC: CHSLAB 09:30
PROVIDERS: PCP Internal Medicine; Visit Provider Internal Medicine
DX: R94.5 Abnormal results of liver function studies (principal)
CPT/HCPCS: 36415; 80053

== ENCOUNTER 2022-10-28 07:49 | Outpatient (CLI) | payer OTHER, SELFPAY ==
[2022-10-28 08:39] LABS: Alanine Aminotransferase 85 U/L (14-59); Albumin Level 4.2 g/dL (3.4-5.0); Alkaline Phosphatase 123 U/L (46-116); Anion Gap 8 mmol/L (8-16); Aspartate Amino Transferase 41 U/L (15-37); Bilirubin,Total 0.5 mg/dL (0.00-1.00); Blood Urea Nitrogen 14 mg/dL (7-18); Calcium 9.3 mg/dL (8.5-10.1); Carbon Dioxide 27 mmol/L (21-32); Chloride 101 mmol/L (98-108); Estimated Glomerular Filt Rate > 60; Glucose 89 mg/dL (70-99); Osmolality Calculated 281 mOsm/kg (285-295); Potassium 4.4 mmol/L (3.5-5.1); Sodium 136 mmol/L (136-145); Total Protein 7.5 g/dL (6.4-8.2)
== END 2022-10-28 07:50 | disposition home or self-care (01) ==
LOC: CHSLAB 07:51
PROVIDERS: PCP Internal Medicine; Visit Provider Internal Medicine
DX: R94.5 Abnormal results of liver function studies (principal)
CPT/HCPCS: 36415; 80053

== ENCOUNTER 2022-11-10 18:18 | Outpatient (CLI) | payer OTHER, SELFPAY ==
[2022-11-10 18:44] LABS: Basophils Absolute Auto 0.07 K/mm3 (0.00-0.10); Basophils Percent Auto 0.8 % (0.0-1.0); Eosinophils Absolute Auto 0.18 K/mm3 (0.02-0.50); Eosinophils Percent Auto 1.9 % (1.0-6.0); Hematocrit 41.4 % (35.0-49.0); Hemoglobin 13.8 g/dL (12.0-15.0); Immature Granulocyte Absolute 0.03 K/mm3 (0.00-0.00); Immature Granulocyte Percent A 0.3 % (0.0-0.0); Lymphocytes Absolute Auto 3.46 K/mm3 (1.10-4.50); Lymphocytes Percent Auto 37.2 % (18.0-42.0); Mean Corpuscular HGB Conc 33.3 g/dL (32.0-36.0); Mean Corpuscular Hemoglobin 30.9 pg (27.0-31.0); Mean Corpuscular Volume 92.8 fL (78.0-102.0); Mean Platelet Volume 9.9 fl (9.2-11.8); Monocytes Absolute Auto 0.61 K/mm3 (0.10-0.90); Monocytes Percent Auto 6.6 % (2.0-11.0); Neutrophils Absolute Auto 4.9 K/mm3 (1.7-7.2); Neutrophils Percent Auto 53.2 % (50.0-70.0); Platelet Count Result 398 K/mm3 (150-420); Red Blood Count 4.46 M/mm3 (4.20-5.40); Red Cell Distribution Width 12.2 % (11.6-14.4); White Blood Count 9.3 K/mm3 (4.8-10.8)
[2022-11-10 19:42] LABS: CRP 0.5 mg/dL (0.0-0.9); Ferritin 53 ng/mL (8-252); Iron 60 ug/dL (50-170)
[2022-11-10 19:49] LABS: Erythrocyte Sedimentation Rate 18 mm/hr (0-15)
[2022-11-15 18:04] LABS: Actin Antibody (IgG) <20 U (<20)
[2022-11-15 22:13] LABS: Mitochondrial (M2) Ab (IgG) <=20.0 U (<=20.0)
[2022-11-16 11:20] LABS: Ceruloplasmin 31 mg/dL (18-53)
[2022-11-16 12:16] LABS: Anti Nuclear Antibody Pattern Nuclear, Speckled; Anti Nuclear Antibody Titer 1:40 (Negative)
== END 2022-11-10 18:19 | disposition home or self-care (01) ==
LOC: CHSLAB 18:21
PROVIDERS: PCP Internal Medicine; Visit Provider Internal Medicine
DX: R79.89 Other specified abnormal findings of blood chemistry (principal)
CPT/HCPCS: 36415; 82390; 82728; 83516; 83520; 83540; 85025; 85652; 86038; 86039; 86140

== ENCOUNTER 2022-12-17 07:56 | Outpatient (CLI) | payer OTHER, SELFPAY ==
--- NOTE | ~2022-12-17 | US_ITS ---
US right upper quadrant INDICATION: Elevated liver function tests. PROCEDURE: Realtime right upper abdominal ultrasound. COMPARISON: 12/25/2014 FINDINGS: The pancreas is normal without focal mass or pancreatic ductal dilation. Liver echotexture is diffusely increased, consistent with fatty infiltration. There is normal directional flow in the portal vein. Gallbladder is surgically absent. Common bile duct measures 4 mm. IMPRESSION: 1: Hepatic steatosis. Reviewed, dictated and finalized at location B. CONTROLLED MACHINE STITCHER IMPRESSION: 1: Hepatic steatosis.
== END 2022-12-17 07:57 | disposition home or self-care (01) ==
LOC: CHSIMG 08:01
PROVIDERS: PCP Internal Medicine
DX: R74.8 Abnormal levels of other serum enzymes (principal); K76.0 Fatty (change of) liver, not elsewhere classified
CPT/HCPCS: 76705

== ENCOUNTER 2023-03-05 07:15 | Outpatient (CLI) | payer OTHER, SELFPAY ==
[2023-03-05 07:35] LABS: Appearance Urine Clear (Clear); Basophils Absolute Auto 0.07 K/mm3 (0.00-0.10); Basophils Percent Auto 0.9 % (0.0-1.0); Bilirubin Urine Negative (Negative); Blood Urine Negative (Negative); Color Urine Light Yellow (Yellow); Eosinophils Absolute Auto 0.25 K/mm3 (0.02-0.50); Eosinophils Percent Auto 3.2 % (1.0-6.0); Glucose Urine UA Negative (Negative); Hematocrit 38.4 % (35.0-49.0); Immature Granulocyte Absolute 0.03 K/mm3 (0.00-0.00); Immature Granulocyte Percent A 0.4 % (0.0-0.0); Ketones Urine Negative (Negative); Leukocyte Esterase Ur 1+ LEU/UL (Negative); Lymphocytes Absolute Auto 2.71 K/mm3 (1.10-4.50); Lymphocytes Percent Auto 35.2 % (18.0-42.0); Mean Corpuscular HGB Conc 33.9 g/dL (32.0-36.0); Mean Corpuscular Hemoglobin 31.3 pg (27.0-31.0); Mean Corpuscular Volume 92.5 fL (78.0-102.0); Mean Platelet Volume 9.8 fl (9.2-11.8); Monocytes Absolute Auto 0.48 K/mm3 (0.10-0.90); Monocytes Percent Auto 6.2 % (2.0-11.0); Neutrophils Absolute Auto 4.2 K/mm3 (1.7-7.2); Neutrophils Percent Auto 54.1 % (50.0-70.0); Nitrate Urine Negative (Negative); Platelet Count Result 394 K/mm3 (150-420); Protein Urine Negative (Negative); Red Blood Count 4.15 M/mm3 (4.20-5.40); Red Cell Distribution Width 12.5 % (11.6-14.4); Specific Grav Ur 1.015 (1.010-1.020); Urobilinogen Urine 0.2 mg/dL (0.2-1.0); White Blood Count 7.7 K/mm3 (4.8-10.8)
[2023-03-05 07:53] LABS: Add Urine Microscopic? YES; Bacteria Urine Trace /hpf; RBC Urine 0-2 /hpf (0-2); Squamous Epithelial Cell Urine Few /hpf (Few)
[2023-03-05 09:12] LABS: Alanine Aminotransferase 95 U/L (14-59); Albumin Level 3.9 g/dL (3.4-5.0); Alkaline Phosphatase 140 U/L (46-116); Anion Gap 9 mmol/L (8-16); Aspartate Amino Transferase 49 U/L (15-37); Bilirubin,Total 0.8 mg/dL (0.00-1.00); Blood Urea Nitrogen 13 mg/dL (7-18); Calcium 8.9 mg/dL (8.5-10.1); Carbon Dioxide 28 mmol/L (21-32); Chloride 102 mmol/L (98-108); Cholesterol 173 mg/dL (0-200); Estimated Glomerular Filt Rate > 60; Free T3 3.33 pg/mL (2.18-3.98); Free T4 Free Thyroxine 0.95 ng/dL (0.76-1.46); Glucose 95 mg/dL (70-99); HDL Direct 43 mg/dL (40-60); LDL Cholesterol Calculated 94 mg/dL (<130); Osmolality Calculated 288 mOsm/kg (285-295); Potassium 4.2 mmol/L (3.5-5.1); Sodium 139 mmol/L (136-145); Thyroid Stimulating Hormone 0.57 uIU/mL (0.36-3.74); Total Protein 7.2 g/dL (6.4-8.2); Triglycerides 182 mg/dL (0-150); Vitamin B12 635 pg/mL (193-986)
[2023-03-10 17:31] LABS: Vitamin D 25 Hydroxy 34 ng/mL (30-100)
== END 2023-03-05 07:16 | disposition home or self-care (01) ==
PROVIDERS: PCP Internal Medicine; Visit Provider Internal Medicine
DX: R79.89 Other specified abnormal findings of blood chemistry (principal); E03.9 Hypothyroidism, unspecified; E78.2 Mixed hyperlipidemia; N39.0 Urinary tract infection, site not specified; E55.9 Vitamin D deficiency, unspecified; E53.8 Deficiency of other specified B group vitamins
CPT/HCPCS: 36415; 80053; 80061; 81001; 82306; 82607; 84439; 84443; 84481; 85025; 86038; 87086

== ENCOUNTER 2023-06-18 07:11 | Outpatient (CLI) | payer OTHER, SELFPAY ==
[2023-06-18 07:55] LABS: Alanine Aminotransferase 84 U/L (14-59); Albumin Level 4.1 g/dL (3.4-5.0); Alkaline Phosphatase 143 U/L (46-116); Anion Gap 13 mmol/L (8-16); Aspartate Amino Transferase 31 U/L (15-37); Bilirubin,Total 0.3 mg/dL (0.00-1.00); Blood Urea Nitrogen 10 mg/dL (7-18); Calcium 9.6 mg/dL (8.5-10.1); Carbon Dioxide 22 mmol/L (21-32); Chloride 103 mmol/L (98-108); Estimated Glomerular Filt Rate > 60; Glucose 115 mg/dL (70-99); Osmolality Calculated 286 mOsm/kg (285-295); Potassium 4.4 mmol/L (3.5-5.1); Sodium 138 mmol/L (136-145); Total Protein 7.5 g/dL (6.4-8.2)
== END 2023-06-18 07:12 | disposition home or self-care (01) ==
LOC: CHSLAB 07:14
PROVIDERS: PCP Internal Medicine; Visit Provider Internal Medicine
DX: R74.01 Elevation of levels of liver transaminase levels (principal)
CPT/HCPCS: 36415; 80053

== ENCOUNTER 2023-08-25 13:33 | Outpatient (CLI) | payer OTHER, SELFPAY | END 2023-08-25 13:34 | disposition home or self-care (01) | LOC: ANHLAB 13:34 | PROVIDERS: PCP Internal Medicine; Visit Provider Obstetrics & Gynecology | DX: N92.1 Excessive and frequent menstruation with irregular cycle (principal); Z01.818 Encounter for other preprocedural examination | CPT/HCPCS: 36415; 86850; 86900; 86901 ==

== ENCOUNTER 2023-08-31 16:19 | Inpatient (IN) | payer OTHER, SELFPAY ==
[2023-08-23 13:39] VITALS: BMI 40.3
--- NOTE | 2023-08-23 14:14 | PC.NURSE ---
Report to the Outpatient Waiting Room, entrance under the green pavilion located off [facility], at time 10:00_ on date 08/31/23_. Planned Procedure Time: _12:00 . Time changes happen often and if your time is changed the preop area will call you the afternoon before. - You and your visitor will be asked to self-screen and do not enter if you have any COVID symptoms. - A mask is optional within the hospital at this time. Patients may have clear liquids (water, carbonated beverages, clear teas, apple juice) until 3 hours prior to surgery with a maximum of 20 ounces. - No food from midnight until time of surgery!!!!!!!!!!! Take the following medications with a SIP of water the morning of surgery: __TAKE ALL MEDS AT NIGHT PER YOUR ROUTINE DO NOT STOP ANY OF YOUR OTHER PRESCRIPTION MEDICATIONS PRIOR TO SURGERY ?EXCEPT THE FOLLOWING Medications to discontinue per physician N/A Date to take last dose____N/A Please no make-up, nail romanian, hairspray, perfume, deodorant, or body powder the day of surgery. No jewelry (including any body piercings) or valuables the day of surgery, leave them at home. Please take a shower or bath the night before, or the morning of, surgery with an antibacterial soap. Wear comfortable, loose fitting clothing. BRING AN OVERNIGHT BAG WITH YOU - Jewelry must be removed prior to entering the operating room. Rings and piercings that are not removed may be cut off. - The hospital will not accept responsibility for valuables. - Please leave all valuables, including medications, at home the day of surgery. If you are going home after surgery, a licensed concrete truck driver must drive you home. - NO public transportation without another adult if you receive anesthesia. - We recommend that an adult stay with you for 24 hours following discharge. - We also recommend that you do not drive, make important decision, drink alcoholic beverages, or take any drugs that were not prescribed by your health care provider for at least 24 hours after your discharge time. Follow any additional instructions given to you from your surgeon. If you or anyone in your household have experienced Covid symptoms in the past week, please notify your surgeon or the nurse liaison at the phone number below for possible testing. Telephone instructions given to _KALLIE__and asked if any additional questions and then verbalized understanding. Patient advised to call surgeon office or pre surgery nurse liaison [phone] if any additional questions.
[2023-08-31] VITALS (12 sets, daily range): BP systolic 100–145; BP diastolic 67–88; PULSE 81–97; RESP 16–19; TEMP 36.3–36.8; O2SAT 94–100
--- NOTE | 2023-08-31 08:34 | PM.IMHP ---
H&P: HPI History of Present Illness Date/Time: 08/31/23 08:34 Chief Complaint: Heavy bleeding Narrative: 33 y/o who has had a tubal ligation and endometrial ablation, yet continues to have heavy, irregular menses. She desires definitive management with hysterectomy. Review of Systems Review of Systems: All systems reviewed & are unremarkable except as noted in HPI and below PMFSH Past Medical History Medical History Anxiety HLD (hyperlipidemia) Hypothyroidism IBS (irritable bowel syndrome) Injury of right knee Medial meniscus tear Migraine headache Surgical History Surgical History H/O dilation and curettage x2 History of appendectomy History of cholecystectomy History of endometrial ablation History of tubal ligation Family History Family History Father Family history of malignant neoplasm of gastrointestinal tract Diabetes mellitus Hypertension Grandparent Diabetes mellitus Other Family history of allergic disorder Social History Social History Smoking status: Never smoker Second hand tobacco smoke exposure: No Alcohol intake: never Substance use: never Substance use type: does not use Living arrangements: with family Gender identity (if verbalized by the patient): Female Spiritual care concerns: No Meds Home Medications and Allergies Home Medications Medication Instructions Recorded Confirmed Type albuterol sulfate 90 mcg/actuation 2 puff inhalation Q4H PRN Dyspnea 10/15/19 08/23/23 History aerosol inhaler (Ventolin HFA) dicyclomine 10 mg capsule 10 mg PO QID PRN Abdominal Pain 10/15/19 08/23/23 History montelukast 10 mg tablet 10 mg PO HS 10/15/19 08/23/23 History (Singulair) omeprazole 40 mg capsule,delayed 40 mg PO HS 10/15/19 08/23/23 History release venlafaxine 75 mg tablet,extended 75 mg PO HS 05/29/20 08/23/23 History release 24 hr levocetirizine 5 mg tablet (Xyzal) 5 mg PO HS 07/13/21 08/23/23 History levothyroxine 75 mcg tablet 75 mcg PO HS 07/13/21 08/23/23 History verapamil 80 mg tablet 160 tablet PO BID 03/23/22 08/23/23 History fremanezumab-vfrm 225 mg/1.5 mL See Rx Instructions .Route .COMPLEX 08/23/23 08/23/23 History subcutaneous syringe (Ajovy Syringe) rimegepant 75 mg disintegrating 75 mg PO EVERY OTHER DAY 08/23/23 08/23/23 History tablet (Nurtec ODT) ubrogepant 50 mg tablet (Ubrelvy) 100 mg PO ONCE PRN MIGRAINES 08/23/23 08/23/23 History Allergies Allergy/AdvReac Type Severity Reaction Status Date / Time bupropion [From Wellbutrin] Allergy Intermediate Rash Verified 08/23/23 14:08 Exam Const: Orientation/consciousness: patient oriented x3 Other: Well-developed, well-nourished female in no acute distress. Neck: Thyroid: thyroid normal Lymphatic: no lymphadenopathy noted (in neck, axilla or inguinal nodes) Resp: Effort & Inspection: normal respiratory effort Auscultation: clear to auscultation bilaterally Cardio: Rate: regular rate Rhythm: regular rhythm Heart sounds: S1 normal heart sound present and S2 normal heart sound present GI: Other: ABD: Soft, nontender, nondistended. No guarding or rebound tenderness. No hepatosplenomegaly. : General: Yes no CVA tenderness Other: External genitalia: normal female hair distribution, without lesion. Urethral meatus: no lesion, non prolapsed. Bladder: no mass, nontender Vagina: well-estrogenized, without lesion or discharge. No cystocele or rectocele. Cervix: no lesion or discharge. Uterus: small, anteverted, freely mobile, nontender Adnexa: no mass or tenderness. Anus/perineum: no lesions, nontender Back/Spine/Pelvis: Back: no CVA tenderness Skin: General skin exam: normal color and no rashes or lesions noted N
[2023-08-31] MEDS: ACETAMINOPHEN 500 MG TABLET 1000 MG PO (10:53)
[2023-08-31] MEDS: LACTATED RINGERS 1,000 ML 30 ML IV CONT ×2 (11:31→14:24)
[2023-08-31] MEDS: KETOROLAC 15 MG/ML VIAL (*BKC) IV PUSH (12:07)
--- NOTE | 2023-08-31 12:09 | WPDHPUPDATE1 ---
History and Physical Update Update Date/Time: 08/31/23 12:09 History and Physical has been reviewed, including an updated exam of the patient. There are NO changes in the patient's condition. Risks, benefits, and alternatives have been discussed and questions answered. Patient agrees to proceed with procedure.
--- NOTE | 2023-08-31 12:15 | WPDANESEPPF ---
Anes - Initial Pre Proc Eval Procedure: Operation Date: 08/31/23 12:00 Proposed Procedures p Robotic Assisted Total Vaginal Hysterectomy with Bilateral Salpingectomy - Vikram Rojas MD Date/Time: 08/31/23 12:15 Surgeon: Vikram Rojas MD Pre Op Diagnosis: menometrorrhagia,refractory to treatment Patient Data Age: 33 Gender: F Height: 1.57 m Weight: 98.6 kg Last Vital Signs Temp 36.8 C 08/31/23 11:41 Pulse 97 08/31/23 11:41 Resp 16 08/31/23 11:41 BP 145/88 H 08/31/23 11:41 Pulse Ox 97 08/31/23 11:41 O2 Del Method Room Air 08/31/23 11:41 Allergies Allergy/AdvReac Type Severity Reaction Status Date / Time bupropion [From Wellbutrin] Allergy Intermediate Rash Verified 08/31/23 10:37 Home Medications Medication Instructions Recorded Confirmed Type albuterol sulfate 90 mcg/actuation 2 puff inhalation Q4H PRN Dyspnea 10/15/19 08/31/23 History aerosol inhaler (Ventolin HFA) dicyclomine 10 mg capsule 10 mg PO QID PRN Abdominal Pain 10/15/19 08/23/23 History montelukast 10 mg tablet 10 mg PO HS 10/15/19 08/31/23 History (Singulair) omeprazole 40 mg capsule,delayed 40 mg PO HS 10/15/19 08/31/23 History release venlafaxine 75 mg tablet,extended 75 mg PO HS 05/29/20 08/31/23 History release 24 hr levocetirizine 5 mg tablet (Xyzal) 5 mg PO HS 07/13/21 08/31/23 History levothyroxine 75 mcg tablet 75 mcg PO HS 07/13/21 08/31/23 History fremanezumab-vfrm 225 mg/1.5 mL See Rx Instructions .Route .COMPLEX 08/23/23 08/31/23 History subcutaneous syringe (Ajovy Syringe) rimegepant 75 mg disintegrating 75 mg PO EVERY OTHER DAY 08/23/23 08/31/23 History tablet (Nurtec ODT) ubrogepant 50 mg tablet (Ubrelvy) 100 mg PO ONCE PRN MIGRAINES 08/23/23 08/31/23 History Patient hx anesthesia problems: none Family hx anesthesia problems: none Results Review: All pre-operative results and documents have been reviewed as part of the pre-operative evaluation. [facility] Past Medical History Medical History Anxiety HLD (hyperlipidemia) Hypothyroidism IBS (irritable bowel syndrome) Injury of right knee Medial meniscus tear Migraine headache Surgical History Surgical History H/O dilation and curettage x2 History of appendectomy History of cholecystectomy History of endometrial ablation History of tubal ligation Family History Family History Father Family history of malignant neoplasm of gastrointestinal tract Diabetes mellitus Hypertension Grandparent Diabetes mellitus Other Family history of allergic disorder Social History Social History Smoking status: Never smoker Second hand tobacco smoke exposure: No Alcohol intake: never Substance use: never Substance use type: does not use Living arrangements: with family Gender identity (if verbalized by the patient): Female Spiritual care concerns: No Anes - Eval Final PreProcedure Day of Procedure 08/31/23 12:15 Patient weight: morbidly obese Heart: regular rate and rhythm Lungs: clear to auscultation Airway: Mallampati scale class II Neurological: alert and oriented Last oral intake: >/= 8 hours ASA classification: III Emergent: no Anesthetic plan: proceed Anesthesia type and monitoring: general ETT and standard monitoring Results Review: All pre-operative results and documents have been reviewed as part of the pre-operative evaluation. Informed Consent: The patient's anesthetic plan and its attendant risks and benefits were discussed with the patient/family/POA. Questions were solicited and answers provided to the satisfaction of the patient/family/POA.
[2023-08-31] MEDS: SCOPOLAMINE 1.5 MG PATCH TRANSDERM (12:20)
[2023-08-31] MEDS: ceFAZolin 2 GM/D5W 50 ML 2 GM/50 ML BAG IVPB (12:53)
--- NOTE | 2023-08-31 14:03 | P.OP_ITS ---
Procedure Note - Detailed Date of Procedure 08/31/23 Pre-op Diagnosis Menometrorrhagia Post-op Diagnosis Same Procedure Performed Robotic assisted total vaginal hysterectomy with bilateral salpingectomies Incision and drainage of right ovarian cyst Surgeon Vikram Rojas MD Anesthesia General Findings Bilateral Fallopian tubes with prior tubal ligation with Falope rings. Right ovary with 2 cm, hemorrhagic cyst. Right ovary adherent to peritoneal surface of the posterior cul de sac. Left ovary unremarkable. Uterus enlarged and very boggy in texture. Bilateral round and uterosacral ligaments unremarkable. Description of Procedure The patient was taken to the operating room where general endotracheal anesthesia was administered. She was prepared and draped in the usual sterile fashion in the dorsal lithotomy position. The bladder was drained with Youssef catheter. The cervix was visualized and the anterior lip was grasped using a single-tooth tenaculum. The cervix was gently dilated using Hegar dilators. The NACHO 2 uterine manipulator was then placed and the tenaculum was removed. Gloves were changed and attention was turned to the abdomen. A supraumbilical skin incision was made with the scalpel. The Veress needle was advanced and p neumoperitoneum was administered using carbon dioxide gas. The bladeless trocar was then advanced. Intraperitoneal placement was confirmed using the laparoscope. Lateral ports and an hotel assistant manager port were all placed using bladeless trocars under direct laparoscopic visualization. She was placed in Trendelenburg position and the patient cart was docked. I assumed the console. The ureters were visualized bilaterally. While mobilizing the right ovary, the small ovarian cyst was incised and drained. The round ligament on the right was divided. The Fallopian tube was dissected off the ovary. The uteroovarian ligament was divided. The broad ligament was divided, skeletonizing the uterine artery on the right. The bladder was reflected away. The left side was similarly dissected. Colpotomy was performed circumferentially. The specimen was removed and passed off to be sent to pathology. The vaginal cuff was reapproximated using 0 Vicryl in interrupted [id number] fashion. The pelvis was irrigated copiously using warmed normal saline. Rigorous hemostasis was assured. HemaDerm was applied to the vaginal cuff. The pedicles were inspected once again. The ports were then withdrawn and the gas was allowed to escape. The skin incisions were reapproximated using 4 0 Monocryl in interrupted subcuticular fashion. Dermaflex was applied externally. Sponge, lap, needle and instrument counts were correct. The patient was awakened and taken to the recovery room in stable condition. I was present and scrubbed through the entire procedure. Implants None Estimated Blood Loss 50 Drains Yes (Youssef) Packing No Pathology Yes (Uterus, cervix, bilateral Fallopian tubes) Complications None Condition Stable Disposition PACU
--- NOTE | 2023-08-31 14:09 | PM.DS ---
DS: Admitting Diagnosis Discharge Date 09/01/23 Admitting Diagnosis Menometrorrhagia DS: Summary Hospital Course Hospital Course: Admitted to the hospital on the date of scheduled surgery. She did well and went home on POD1. Time Spent with Patient Time attestation: Total time spent providing and/or coordinating discharge services: DS: Data Data Completed and Pending Pending studies at discharge: Pending at discharge 08/31/23 13:36 Surgical [PTH] Routine Discharge Plan Discharge Attending physician on discharge: Vikram Rojas Discharging Clinician: Vikram Rojas Patient Disposition: Home, Self-Care Activity: may shower, may drive after 2 weeks and pelvic rest Diet: regular Wound Care Instructions: incision open to air Discharge Instructions: Call or return if temperature above 100.4? F, increased abdominal pain, increased vaginal bleeding or any new problems. Patient Instructions: Laparoscopic Hysterectomy (DC) Stand Alone Forms: General Discharge Instructions Follow-up/Referrals: Vikram Rojas MD [Physician] - 2 Weeks Discharge Medications: New hydrocodone-acetaminophen 5-325 mg tablet 1 - 2 tablet PO Q6H PRN (Reason: pain) Qty: 30 0RF Continued omeprazole 40 mg capsule,delayed release(DR/EC) 40 mg PO HS montelukast [Singulair] 10 mg tablet 10 mg PO HS albuterol sulfate [Ventolin HFA] 90 mcg/actuation HFA aerosol inhaler 2 puff INHALATION Q4H PRN (Reason: Dyspnea) dicyclomine 10 mg capsule 10 mg PO QID PRN (Reason: Abdominal Pain) Patient Comments: Pt stated it has been months levocetirizine [Xyzal] 5 mg Tablet 5 mg PO HS levothyroxine 75 mcg tablet 75 mcg PO HS Ubrelvy 50 mg tablet 100 mg PO ONCE PRN (Reason: MIGRAINES) Rx Instructions: as a single dose; may repeat once in >=2 hours after first dose if needed patient took 100mg at 1130am and 50mg 1530pm Ajovy Syringe 225 mg/1.5 mL syringe See Rx Instructions .ROUTE .COMPLEX Rx Instructions: 1 INJECTION EVERY 30 DAYS Nurtec ODT 75 mg tablet,disintegrating 75 mg PO EVERY OTHER DAY Rx Instructions: TAKES AT HS venlafaxine 75 mg Tablet Extended Release 24hr 75 mg PO HS Date of admission: 08/31/23 16:19 Primary Care Provider: Katharine Singh Admitting Provider: Vikram Rojas Attending physician on admission: Vikram Rojas Condition: Stable
[2023-08-31] MEDS: fentaNYL CITRATE INJ (*CRX) 100 MCG/2 ML VIAL 25 MCG IV PUSH ×3 (15:03→15:22)
[2023-08-31] MEDS: DEXTROSE 5%/0.45% SOD CHL 1,000 ML 125 ML IV CONT (16:45)
[2023-08-31] MEDS: MORPHINE SULFATE (*CRX) 4 MG/ML INJ IV PUSH (17:01)
--- NOTE | 2023-08-31 19:26 | OBPPTRN ---
Addendum entered by Veronica Cerna RN 08/31/23 19:36: should read bed not W/C Original Note: 1620 Patient transferred to post room #281 via W/C. Support person present. Oriented to unit, room, information board, admission packet and security measures. Patient verbalizes understanding.
[2023-08-31] MEDS: ENOXAPARIN 40 MG/0.4 ML SYRINGE SUB-Q (20:53)
[2023-08-31] MEDS: LEVOTHYROXINE SODIUM 75 MCG TABLET PO (20:54)
[2023-08-31] MEDS: DOCUSATE SODIUM 100 MG CAPSULE PO (20:54)
[2023-08-31] MEDS: VENLAFAXINE HCL XR 75 MG CAP.ER.24H PO (20:54)
[2023-08-31] MEDS: PANTOPRAZOLE 40 MG TABLET PO (20:54)
[2023-08-31] MEDS: IBUPROFEN 600 MG TABLET PO (20:54)
[2023-08-31] MEDS: HYDROcodone/acetaminophen (*CRX) 5-325 MG TABLET 1 TAB PO (20:54)
[2023-08-31] MEDS: MONTELUKAST SODIUM 10 MG TABLET PO (20:54)
[2023-09-01] MEDS: HYDROcodone/acetaminophen (*CRX) 5-325 MG TABLET 1 TAB PO ×3 (00:50→09:38)
[2023-09-01] MEDS: SIMETHICONE 80 MG TAB.CHEW PO ×2 (00:50→06:26)
[2023-09-01] MEDS: IBUPROFEN 600 MG TABLET PO ×2 (03:15→09:37)
[2023-09-01 05:23] LABS: Basophils Percent Auto 0.1 % (0.2-1.2); Hematocrit 38.2 % (37.0-47.0); Hemoglobin 12.7 g/dL (12.0-15.0); Immature Granulocyte Absolute 0.09 K/mm3 (0.00-0.031); Immature Granulocyte Percent A 0.6 % (0-0.5); Lymphocytes Absolute Auto 1.83 K/mm3 (0.9-3.2); Lymphocytes Percent Auto 12.7 % (18.3-44.2); Mean Corpuscular HGB Conc 33.2 g/dl (32-36); Mean Corpuscular Hemoglobin 31.9 pg (26-34); Mean Platelet Volume 10.5 fl (7.4-10.4); Monocytes Absolute Auto 0.9 K/mm3 (0.1-0.6); Monocytes Percent Auto 6.3 % (2.6-8.5); Neutrophils Absolute Auto 11.5 K/mm3 (1.3-6.7); Neutrophils Percent Auto 80.3 % (45.5-73.1); Platelet Count Result 396 k/mm3 (150-375); Red Blood Count 3.98 M/mm3 (4.2-5.4); Red Cell Distribution Width 12.2 % (11.5-14.5); White Blood Count 14.4 K/mm3 (4.5-10.0)
[2023-09-01] MEDS: DOCUSATE SODIUM 100 MG CAPSULE PO (06:26)
[2023-09-01 08:00] VITALS: BP 116/69; PULSE 80; RESP 16; TEMP 36.8; O2SAT 98
--- NOTE | 2023-09-01 08:44 | WPDANESPN ---
Anes - Prog Note Post-Op Date/Time: 09/01/23 08:44 Cardiovascular status: normal Respiratory status: normal Airway patency: baseline Mental status: baseline Post-Op hydration status: normal Vital Signs: Last Vital Signs Temp 36.3 C L 08/31/23 23:40 Pulse 81 08/31/23 23:40 Resp 16 08/31/23 23:40 BP 100/67 08/31/23 23:40 Pulse Ox 94 08/31/23 19:29 O2 Del Method Room Air 08/31/23 19:29 O2 Flow Rate 2 08/31/23 15:45 Pain Score (VAS): 12/31 I/O: Intake & Output 08/31/23 09/01/23 09/01/23 23:59 07:59 15:59 Intake Total 895 Output Total 825 Balance 70 Laboratory Tests 09/01/23 04:48 09/01/23 04:48 WBC 14.4 H RBC 3.98 L Hgb 12.7 Hct 38.2 MCV 96.0 MCH 31.9 MCHC 33.2 RDW 12.2 Plt Count 396 H MPV 10.5 H Immature Gran % (Auto) 0.6 H Neut % (Auto) 80.3 H Lymph % (Auto) 12.7 L [place] % (Auto) 6.3 Eos % (Auto) 0.0 Baso % (Auto) 0.1 L Lymph # (Auto) 1.83 [place] # (Auto) 0.9 H Eos # (Auto) 0.0 Baso # (Auto) 0.0 Abs Immat Gran (auto) 0.09 H Absolute Neuts (auto) 11.5 H Absolute Nucleated RBC 0.0 Nucleated RBC % 0.0 Post-procedural complaints: none Patient Feedback: Patient satisfied with anesthetic care.
--- NOTE | 2023-09-01 09:13 | PM.GYNPNOP ---
GLUE LINE OPERATOR - A/P Assessment and plan (1) Menometrorrhagia: Code(s): N92.1 - Excessive and frequent menstruation with irregular cycle Status: Acute Assessment and Plan: A: POD#1, doing well. P: Home to f/u 2 weeks. Postoperative Procedures: Procedures Operation Date: 08/31/23 12:00 Actual Procedure Side Surgeon p Robotic Assisted Total Vaginal Hysterectomy with Bilateral Salpingectomy,Incision and Drainage of Right Ovarian Cyst Vikram Rojas MD Postoperative day: 1 Time Spent With Patient Time with patient: less than 15 minutes GLUE LINE OPERATOR- PN:Subj Post-Op Subjective Date/time seen: 09/01/23 09:13 Interval history: Pain OK. Tolerating diet. Voiding. Would like to go home. Exam Narrative: AVSS I/O OK ABD soft, nontender. Incisions c/d/i. EXT nontender GLUE LINE OPERATOR - PN: Obj Data Vital Signs Vital Signs: Vital Signs - 24 hr 08/31/23 11:41 08/31/23 14:24 08/31/23 14:30 Temperature 36.8 C 36.6 C Pulse Rate 97 94 89 Respiratory Rate 16 19 19 Blood Pressure 145/88 H 124/75 123/77 Pulse Oximetry 97 99 99 Oxygen Delivery Room Air Simple Face Mask Simple Face Mask Oxygen Flow Rate 6 6 08/31/23 14:45 08/31/23 15:00 08/31/23 15:15 Temperature Pulse Rate 86 84 93 Respiratory Rate 18 18 18 Blood Pressure 115/69 120/70 119/76 Pulse Oximetry 100 100 97 Oxygen Delivery Simple Face Mask Simple Face Mask Nasal Cannula Oxygen Flow Rate 6 6 2 08/31/23 15:30 08/31/23 15:45 08/31/23 16:15 Temperature Pulse Rate 94 87 85 Respiratory Rate 17 17 18 Blood Pressure 122/71 115/86 116/73 Pulse Oximetry 97 97 95 Oxygen Delivery Nasal Cannula Nasal Cannula Room Air Oxygen Flow Rate 2 2 08/31/23 19:29 08/31/23 19:29 08/31/23 19:20 Temperature 36.4 C L 36.3 C L Pulse Rate 83 95 Respiratory Rate 18 18 Blood Pressure 120/71 108/69 Pulse Oximetry 94 97 Oxygen Delivery Room Air Oxygen Flow Rate 08/31/23 23:40 Temperature 36.3 C L Pulse Rate 81 Respiratory Rate 16 Blood Pressure 100/67 Pulse Oximetry Oxygen Delivery Oxygen Flow Rate Intake/Output Intake/Output: Intake & Output 08/29/23 08/30/23 08/31/23 09/01/23 23:59 23:59 23:59 23:59 Intake Total 2145 Output Total 885 Balance 1260 Meds/Results Medications: Active Medications Generic Name Dose Route Start Last Admin Trade Name Freq PRN Reason Stop Dose Admin Hydrocodone Bitart/Acetaminophen 1 tab 08/31/23 16:19 09/01/23 06:24 Hydrocodone/Acetaminophen (*Crx) 5-325 Mg Tablet PO 1 tab Q3H PRN Administration Pain Rated 5 or Less Hydrocodone Bitart/Acetaminophen 1 tab 08/31/23 16:19 Hydrocodone/Acetaminophen (*Crx) 10-325 Mg Tablet PO Q3H PRN Pain Rated 6 or Greater Albuterol 2 puff 08/31/23 16:19 Albuterol Sulfate (*Sp) Aerosol 1 Puff INHALATION Q4H PRN Dyspnea Dicyclomine HCl 10 mg 08/31/23 16:19 Dicyclomine Hcl 10 Mg Capsule PO QID PRN Abdominal Pain Docusate Sodium 100 mg 08/31/23 17:00 09/01/23 06:26 Docusate Sodium 100 Mg Capsule PO 100 mg BID GALLITO Administration Enoxaparin Sodium 40 mg 08/31/23 21:00 08/31/23 20:53 Enoxaparin 40 Mg/0.4 Ml Syringe SUB-Q 40 mg DAILY GALLITO Administration Ibuprofen 600 mg 08/31/23 16:19 09/01/23 03:15 Ibuprofen 600 Mg Tablet PO 600 mg Q6H PRN Administration Cramping Levothyroxine Sodium 75 mcg 08/31/23 21:00 08/31/23 20:54 Levothyroxine Sodium 75 Mcg Tablet PO 75 mcg HS GALLITO Administration Metoclopramide HCl 10 mg 08/31/23 16:19 Metoclopramide Hcl Inj 10 Mg/2 Ml Vial IV PUSH Q6H PRN Nausea Montelukast Sodium 10 mg 08/31/23 21:00 08/31/23 20:54 Montelukast Sodium 10 Mg Tablet PO 10 mg HS GALLITO Administration Morphine Sulfate 4 mg 08/31/23 16:19 08/31/23 17:01 Morphine Sulfate (*Crx) 4 Mg/Ml Inj IV PUSH 4 mg Q4H PRN Administration Pain Rated 7-10 Naloxone HCl 0.1 mg 08/31/23 16:19
--- OUTSIDE RECORDS SUMMARY | 2023-09-06 10:32 | XMS_ITS | Patient Health Record ---
Author Name Unknown Organization [facility] Address [address] [place] [address] Care Team Providers Care Power System Operator Name Role Phone Katharine Singh Primary Care Provider Unavailjimmy e Shiela Acosta Unavailable [phone] ALLERGIES Allergen (clinical drug ingredient) Drug/Non Drug Allergy documented on EMR Reaction Allergy Type Onset Date Status piperacillin / tazobactam Zosyn (uncoded) local swelling and one hive Allergy Active Wellbutrin hives Drug Allergy Active REASON FOR REFERRAL No Information MEDICATIONS Medication SIG (Take, Route, Frequency, Duration) Notes Start Date End Date Status CeleXA 20 mg 1 tab(s) orally once a day for 30 day(s) Active olopatadine ophthalmic 0.2% INSTILL ONE DROP IN AFFECTED EYE(S) ONCE DAILY FOR TEN DAYS Active Montelukast Sodium 10 mg 1 tab(s) orally once a day Active Arnuity Ellipta furoate 200 mcg 1 puff(s) inhaled every 24 hours for 30 day(s) Not-Holly jamison ProAir HFA 90 mcg/inh 2 puff(s) inhaled Q4-6 hours, PRN and per the asthma action plan for 30 day(s) Active Symbicort 80 mcg-4.5 mcg/inh
== END 2023-09-01 09:40 | disposition home or self-care (01) | DRG 743 ==
LOC: ANHOB2 09-01 09:11
PROVIDERS: Admitting Provider Obstetrics & Gynecology; PCP Internal Medicine; Visit Provider Obstetrics & Gynecology
PROC: 0UT9FZZ Resection of Uterus, Via Natural or Artificial Opening With Percutaneous Endoscopic Assistance (ICD-10-PCS; CPT 58552; principal; 2023-08-31 12:00)
DX: N92.1 Excessive and frequent menstruation with irregular cycle (principal); N83.201 Unspecified ovarian cyst, right side; E66.01 Morbid (severe) obesity due to excess calories; E03.9 Hypothyroidism, unspecified; E78.5 Hyperlipidemia, unspecified; F41.9 Anxiety disorder, unspecified; G43.909 Migraine, unspecified, not intractable, without status migrainosus; K58.9 Irritable bowel syndrome, unspecified; R10.9 Unspecified abdominal pain; Z79.51 Long term (current) use of inhaled steroids; Z68.39 Body mass index [BMI] 39.0-39.9, adult; Z98.51 Tubal ligation status; Z90.49 Acquired absence of other specified parts of digestive tract
CPT/HCPCS: 58552; 58662; S2900; 36415; 85025; 88307; A9270; J0690; J1100; J1170; J1650; J1885; J2250; J2270; J2405; J2704; J3010; J7120

== ENCOUNTER 2023-11-11 13:32 | Outpatient (CLI) | payer OTHER, SELFPAY ==
--- NOTE | ~2023-11-11 | US_ITS ---
US thyroid INDICATION: Follow-up thyroid nodules TECHNIQUE: Real-time sonographic images of the thyroid gland were obtained. COMPARISON: Ultrasound dated 03/23/2020 FINDINGS: The right thyroid lobe measures 5.1 x 1.7 x 1.7 cm. The left thyroid lobe measures 5 x 1.7 x 1.5 cm. Thyroid echotexture is diffusely heterogeneous with multiple bilateral thyroid masses. Lar gest discrete mass in the right thyroid lobe which measures 11 x 10 x 6 mm which is solid, hypoechoic , wider than tall, smoothly marginated without echogenic foci, TR 4. No stable appearance to left thy roid nodules. No new or enlarging left thyroid nodules. IMPRESSION: 1. Heterogeneous multinodular thyroid gland, largest discrete being in the right lobe measuring 11 m m, TR 4, likely benign multinodular goiter. Consider follow-up ultrasound in 12 months. Reviewed, dictated and finalized at location B. [employer] BUSINESS DEVELOPMENT MANAGER IMPRESSION: 1. Heterogeneous multinodular thyroid gland, largest discrete being in the rig ht lobe measuring 11 mm, TR 4, likely benign multinodular goiter. Consider foll ow-up ultrasound in 12 months.
== END 2023-11-11 13:33 | disposition home or self-care (01) ==
PROVIDERS: PCP Family Medicine; Visit Provider Family Medicine
DX: E04.2 Nontoxic multinodular goiter (principal)
CPT/HCPCS: 76536

== ENCOUNTER 2024-02-09 08:04 | Outpatient (CLI) | payer OTHER, SELFPAY ==
--- NOTE | ~2024-02-09 | MR_ITS ---
EXAMINATION: MR foot RT wo con DATE: 02/09/2024 08:38 INDICATION: Right foot injury TECHNIQUE: Magnetic resonance imaging (MRI) of the right foot excluding the toes was performed withou t intravenous contrast. Sequences included sagittal T1-weighted FSE, sagittal fluid sensitive FSE STI R, coronal PD-weighted FS FSE, coronal T1-weighted FSE, axial PD-weighted FS FSE, and axial PD-weight ed FSE. COMPARISON: None FINDINGS: Bone alignment is normal. There is normal bone marrow signal throughout with no reactive edema, fract ure or pathologic marrow replacing process. Mild osteoarthritis at a few of the tarsal metatarsal shira nts. Physiologic amount fluid in the joint spaces. No synovitis or erosions to suggest inflammatory a rthritis. There is some thickening of the superficial deltoid ligament without surrounding edema to s uggest recent injury most likely scarring related to chronic sprain. The medial and lateral stabilizi ng ligaments of the ankle are otherwise normal. The spring ligament complex and the Lisfranc ligament complex are normal. Small enthesophytes at the calcaneal insertion of the otherwise normal distal Ac hilles tendon. Small amount of fluid in the peroneal tendon sheath consistent with mild tenosynovitis . There is moderate tendinopathy and longitudinal split tearing of the peroneus brevis tendon. The pe roneus longus tendon along with the medial sided flexor tendons and extensor tendons of the foot and ankle are normal. Small plantar calcaneal spur with mild associated marrow edema and soft tissue jono a surrounding the calcaneal origin of the proximal plantar aponeurosis consistent with acute on chron ic plantar fasciitis. IMPRESSION: 1. Acute on chronic plantar fasciitis. 2. Mild peroneal tenosynovitis with moderate tendinopathy and longitudinal split tearing of the peron eus brevis tendon. 3. Scarring likely related to chronic sprain of the superficial deltoid ligament. Reviewed, dictated and finalized at location A. IMPRESSION: 1. Acute on chronic plantar fasciitis. 2. Mild peroneal tenosynovitis with moderate tendinopathy and longitudinal spli t tearing of the peroneus brevis tendon. 3. Scarring likely related to chronic sprain of the superficial deltoid ligamen t.
== END 2024-02-09 08:05 ==
LOC: MICIMG 08:05
PROVIDERS: PCP Family Medicine; Visit Provider Family Medicine
DX: S99.921A Unspecified injury of right foot, initial encounter (principal); X58.XXXA Exposure to other specified factors, initial encounter; M72.2 Plantar fascial fibromatosis
CPT/HCPCS: 73718

== ENCOUNTER 2024-02-22 14:46 | Outpatient (CLI) | payer OTHER, SELFPAY ==
--- NOTE | ~2024-02-22 | US_ITS ---
EXAMINATION: US venous doppler LE RT DATE: 02/22/2024 15:34 INDICATION: Right lower limb pain and swelling. TECHNIQUE: Grayscale ultrasound images without and with compression and Doppler ultrasound images of the right lower extremity veins were obtained. COMPARISON: None. FINDINGS: The visualized portions of right common femoral vein, profunda (deep) femoral vein, femoral vein, pop liteal vein, peroneal veins, posterior tibial veins, and greater saphenous vein outflow are patent. IMPRESSION: 1. No deep venous thrombosis. Reviewed, dictated and finalized at location A.
== END 2024-02-22 14:47 | disposition home or self-care (01) ==
PROVIDERS: PCP Family Medicine
DX: M79.604 Pain in right leg (principal); M79.89 Other specified soft tissue disorders
CPT/HCPCS: 93971

== ENCOUNTER 2024-05-15 10:22 | Emergency (ER) | payer OTHER, SELFPAY ==
[2024-05-15] VITALS (8 sets, daily range): BP systolic 113–145; BP diastolic 70–85; PULSE 78–94; RESP 17–22; TEMP 36.2; O2SAT 96–99
--- NOTE | ~2024-05-15 | CT_ITS ---
EXAMINATION: CT brain wo con DATE: 05/15/2024 11:01 INDICATION: Hemiplegic migraine versus stroke with left-sided weakness and slurred speech TECHNIQUE: Computed tomography (CT) of the head was performed without intravenous contrast. Sagittal and coronal reconstructions were performed. The mA was adjusted according to patient size. Iterative reconstruction technique was employed. The dose-length product was 605.33 mGy-cm. COMPARISON: head CT dated 07/12/2021 and brain MR dated 07/13/2021 FINDINGS: No acute intracranial hemorrhage, acute infarction or abnormal extra axial fluid collection. Ventricl es are normal and symmetric. No mass/mass effect. The orbits, paranasal sinuses and mastoid air cells are normal. IMPRESSION: 1. Normal head CT. Reviewed, dictated and finalized at location A. IMPRESSION: 1. Normal head CT.
--- NOTE | ~2024-05-15 | XR_ITS ---
EXAMINATION: XR chest 1V DATE: 05/15/2024 11:03 INDICATION: Stroke with left-sided weakness TECHNIQUE: frontal view of the chest was obtained. COMPARISON: Chest radiograph dated 08/26/2020 FINDINGS: The lungs are clear with no focal airspace opacities, pulmonary edema, pleural effusion or pneumothor ax. The cardiomediastinal silhouette is normal. Visualized bones and soft tissues are unremarkable. C holecystectomy clips in right upper quadrant. IMPRESSION: 1. No acute cardiopulmonary disease. Reviewed, dictated and finalized at location A.
[2024-05-15 10:56] LABS: Basophils Absolute Auto 0.1 K/mm3 (0.0-0.1); Basophils Percent Auto 0.9 % (0.2-1.2); Eosinophils Absolute Auto 0.1 K/mm3 (0-0.3); Eosinophils Percent Auto 1.2 % (0-4.4); Hematocrit 42.3 % (37.0-47.0); Hemoglobin 14.4 g/dL (12.0-15.0); Immature Granulocyte Absolute 0.04 K/mm3 (0.00-0.031); Immature Granulocyte Percent A 0.4 % (0-0.5); Lymphocytes Absolute Auto 3.33 K/mm3 (0.9-3.2); Lymphocytes Percent Auto 34.2 % (18.3-44.2); Mean Corpuscular Hemoglobin 31.6 pg (26-34); Mean Corpuscular Volume 92.8 fl (80-100); Mean Platelet Volume 9.8 fl (7.4-10.4); Monocytes Absolute Auto 0.6 K/mm3 (0.1-0.6); Monocytes Percent Auto 6.3 % (2.6-8.5); Neutrophils Absolute Auto 5.5 K/mm3 (1.3-6.7); Platelet Count Result 408 k/mm3 (150-375); Red Blood Count 4.56 M/mm3 (4.2-5.4); Red Cell Distribution Width 12.6 % (11.5-14.5); White Blood Count 9.7 K/mm3 (4.5-10.0)
[2024-05-15 11:05] LABS: Partial Thromboplastin Time 25.5 Seconds (22.3-36.8); Prothrombin Time 13.1 Seconds (11.1-14.7)
[2024-05-15 11:06] LABS: Alanine Aminotransferase 57 U/L (6-35); Albumin Level 4.8 g/dL (3.5-5.1); Alkaline Phosphatase 129 U/L (38-126); Anion Gap 12 mmol/L (4-12); Aspartate Amino Transferase 51 U/L (14-36); Bilirubin,Total 0.5 mg/dL (0.2-1.3); Blood Urea Nitrogen 12 mg/dL (7-17); Calcium 9.5 mg/dL (8.4-10.2); Carbon Dioxide 23 mmol/L (22-30); Chloride 104 mmol/L (98-107); Estimated CRCL calculation 124 ml/min; Estimated Glomerular Filt Rate > 60; Glucose 103 mg/dL (65-110); Potassium 3.7 mmol/L (3.4-5.0); Sodium 139 mmol/L (137-145)
[2024-05-15 11:17] LABS: Troponin I < 0.012 ng/mL (0.000-0.034)
--- NOTE | 2024-05-15 12:39 | ED.NEUROSD ---
HPI - Neuro Symptoms/Deficit General Chief Complaint: Neuro Symptoms/Deficit Stated Complaint: stroke symptoms Time Seen by Provider: 05/15/24 12:03 History of Present Illness HPI Narrative: Patient is a 34-year-old female with a history of hemiplegic migraines presenting with neuro deficits. Patient states that she unfortunately has a long history of hemiplegic migraines better characterized by left-sided numbness and weakness. States that her symptoms this episode started yesterday morning. States that her entire left side feels numb. Everything feels heavy. She called her neurologist's office who advised she come to the closest ER. She took a Ubrelvy this morning without relief. She denies any infectious symptoms. Related Data Home Medications Medication Instructions Recorded Confirmed albuterol sulfate 90 mcg/actuation 2 puff inhalation Q4H PRN Dyspnea 10/15/19 08/31/23 aerosol inhaler (Ventolin HFA) dicyclomine 10 mg capsule 10 mg PO QID PRN Abdominal Pain 10/15/19 08/23/23 montelukast 10 mg tablet 10 mg PO HS 10/15/19 08/31/23 (Singulair) omeprazole 40 mg capsule,delayed 40 mg PO HS 10/15/19 08/31/23 release venlafaxine 75 mg tablet,extended 75 mg PO HS 05/29/20 08/31/23 release 24 hr levocetirizine 5 mg tablet (Xyzal) 5 mg PO HS 07/13/21 08/31/23 levothyroxine 75 mcg tablet 75 mcg PO HS 07/13/21 08/31/23 fremanezumab-vfrm 225 mg/1.5 mL See Rx Instructions .Route .COMPLEX 08/23/23 08/31/23 subcutaneous syringe (Ajovy Syringe) rimegepant 75 mg disintegrating 75 mg PO EVERY OTHER DAY 08/23/23 08/31/23 tablet (Nurtec ODT) ubrogepant 50 mg tablet (Ubrelvy) 100 mg PO ONCE PRN MIGRAINES 08/23/23 08/31/23 Allergies Allergy/AdvReac Type Severity Reaction Status Date / Time bupropion [From Wellbutrin] Allergy Intermediate Rash Verified 05/15/24 10:34 Review of Systems Review of Systems: All systems reviewed & are unremarkable except as noted in HPI and below PMFSH Past Medical History Medical History Anxiety HLD (hyperlipidemia) Hypothyroidism IBS (irritable bowel syndrome) Injury of right knee Medial meniscus tear Migraine headache Surgical History Surgical History H/O dilation and curettage x2 History of appendectomy History of cholecystectomy History of endometrial ablation History of tubal ligation Family History Family History Father Family history of malignant neoplasm of gastrointestinal tract Diabetes mellitus Hypertension Grandparent Diabetes mellitus Other Family history of allergic disorder Social History Social History Smoking status: Never smoker Second hand tobacco smoke exposure: No Alcohol intake: never Substance use: never Substance use type: does not use Living arrangements: with family Gender identity (if verbalized by the patient): Female Spiritual care concerns: No Exam Narrative: GENERAL: Nontoxic, no acute distress, pleasant cooperative HEAD: Normocephalic, atraumatic. EYES: PERRLA and EOMI. ENT: Mucous membranes moist. NECK: Supple. CHEST: Clear to auscultation. No respiratory distress. HEART: Regular rate and rhythm ABDOMEN: Soft, nontender, nondistended EXTREMITIES: Normal range of motion. SKIN: Warm, dry, no rash. NEURO: Alert and oriented x3. Moving all extremities spontaneously,+ left-sided numbness, mild dysarthria PSYCH: Normal mood and affect. Course Vital Signs Vital signs: Vital Signs Temperature 97.1 F L 05/15/24 10:26 Pulse Rate 94 05/15/24 10:26 Respiratory Rate 17 05/15/24 10:26 Blood Pressure 145/81 H 05/15/24 10:26 Pulse Oximetry 99 05/15/24 10:26 Oxygen Delivery Room Air 05/15/24 10:26 Temperature 97.1 F L 05/15/24 10:26 Pulse Rate 78
[2024-05-15] MEDS: MAGNESIUM SULF 2 GM/WATER 50ML 2 GM/50 ML BAG IVPB (13:05)
[2024-05-15] MEDS: KETOROLAC 30 MG/ML VIAL (*BKC) IV PUSH (13:05)
[2024-05-15] MEDS: SODIUM CHLORIDE 0.9% IV 1,000 ML 999 ML IV CONT (13:05)
[2024-05-15] MEDS: dexAMETHasone SOD PHOS INJ 10 MG/ML 1 ML VIAL IV PUSH (13:06)
[2024-05-15] MEDS: diphenhydrAMINE HCl INJ 50 MG/ML VIAL IV PUSH (13:06)
[2024-05-15] MEDS: METOCLOPRAMIDE HCL INJ 10 MG/2 ML VIAL IV PUSH (13:06)
[2024-05-15 13:35] LABS: Appearance Urine Clear (Clear); Bilirubin Urine Negative (Negative); Blood Urine Negative (Negative); Color Urine Yellow (Yellow); Glucose Urine UA Negative (Negative); Ketones Urine Negative (Negative); Leukocyte Esterase Ur Negative LEU/UL (Negative); Nitrate Urine Negative (Negative); Protein Urine Negative (Negative); Specific Grav Ur 1.013 (1.001-1.035)
[2024-05-15 13:37] LABS: Add Urine Microscopic? NO
--- NOTE | 2024-05-15 14:23 | PC.NURSE ---
Speech improved since arrival to ed. States she has better use of her left hand.
== END 2024-05-15 15:54 | disposition home or self-care (01) ==
PROVIDERS: Student in an Organized Health Care Education/Training Program; Emergency Provider Emergency Medicine; PCP Family Medicine
DX: G43.409 Hemiplegic migraine, not intractable, without status migrainosus (principal); F41.9 Anxiety disorder, unspecified; E78.5 Hyperlipidemia, unspecified; E03.9 Hypothyroidism, unspecified
CPT/HCPCS: 36415; 70450; 71045; 80053; 81003; 81025; 84484; 85025; 85610; 85730; 96365; 96366; 96375; 99284; J1100; J1200; J1885; J2765; J3475; J7030

== ENCOUNTER 2024-10-26 09:12 | Outpatient (CLI) | payer OTHER, SELFPAY ==
--- NOTE | ~2024-10-26 | MMUS_ITS ---
EXAMINATION: MM diagnostic inocencio BI w jonathon, US breast LT limited HISTORY: Left breast mass TECHNIQUE: 3-D tomosynthesis images of the breasts were performed and synthetic 2-D images were gener ated. CAD analysis was submitted and interpreted. High resolution limited left breast ultrasound was performed. COMPARISON: None BREAST PARENCHYMAL COMPOSITION:Not Dense. There are scattered areas of fibroglandular density. FINDINGS: MAMMOGRAPHIC FINDINGS: No suspicious mass lesion or distortion seen in either breast. There are benign lymph nodes in the ax illary tail regions of both breasts. No suspicious microcalcifications. ULTRASOUND: Benign lymph nodes are noted at the area of palpable concern of the left breast 2:00 position. No leatha picious mass lesion identified sonographically. IMPRESSION: Benign-appearing lymph nodes which correlate with the area of palpable concern in the left breast. N o suspicious abnormalities identified. BI-RADS Category 2: Benign finding(s). Reviewed, dictated and finalized at location . 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 No suspicious abnormalities identified. BI-RADS Category 2: Benign finding(s).
== END 2024-10-26 09:13 | disposition home or self-care (01) ==
LOC: CHSIMG 09:14
PROVIDERS: PCP Registered Nurse; Visit Provider Registered Nurse
DX: N63.21 Unspecified lump in the left breast, upper outer quadrant (principal)
CPT/HCPCS: 76642; 77062; 77066; G0279

== ENCOUNTER 2025-01-12 08:33 | Outpatient (CLI) | payer OTHER, SELFPAY ==
--- OUTSIDE RECORDS SUMMARY | 2025-01-12 08:40 | XMS_ITS | Encounter Summary ---
Author Organization [facility] Address [address] [place] [address] Care Team Providers Care Kitchen And Counter Worker Name Role Phone Katharine Singh MD Unavailable [phone] Opal Cruz MD Primary Care Provider Encounter Details Date Type Department Care Team (Late st Contact Info) Description 09/02/2010 Orders Only [facility] Health Information Management [address] [place] [address] Scanning, Provider Social History Tobacco Use Types Packs/Day Years Used Date Smoking Tobacco: Never Assessed Comments Unknown Sex and Gender Information Value Date Recorded Sex Assigned at Not on file Legal Sex Female 1:22 PM SUPERINTENDENT PRODUCTION Gender Identity Female 03/31/2020 4:04 PM CDT Sexual Orientation Straight 03/31/2020 4: 04 PM CDT documented as of this encounter Plan of Treatment Not on file documented as of this encounter Procedures Procedure Name Priority Date/Time Associated Diagnosis Comments SCAN - RADIOLOGY/IMAGING 09/02/2010 documented in this encounter Results * SCAN - RADIOLOGY/IMAGING (09/02/2010) Anatomical Region Laterality Modality Other us Provider Scanning Final Result documented in this encounter Visit Diagnoses Not on filedocumented in this encounter Care Teams Kitchen And Counter Worker Relationship Specialty Start Date End Date Opal Cruz MD [address] [place] [id number] PCP - General Family Medicine 01/06/24 Katharine Singh MD Internal Medicine 02/16/19 documented as of this encounter
--- OUTSIDE RECORDS SUMMARY | 2025-01-12 08:40 | XMS_ITS | Encounter Summary ---
Author Organization [facility] Address [address] [place] [address] Care Team Providers Care Warehouse Stocker Name Role Phone Katharine Singh MD Unavailable [phone] Opal Cruz MD Primary Care Provider Encounter Details Date Type Department Care Team (Late st Contact Info) Description 05/03/2011 Orders Only [facility] Health Information Management [address] [place] [address] Scanning, Provider Social History Tobacco Use Types Packs/Day Years Used Date Smoking Tobacco: Never Assessed Comments Unknown Sex and Gender Information Value Date Recorded Sex Assigned at Not on file Legal Sex Female 1:22 PM MANAGER 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 Gender Identity Female 03/31/2020 4:04 PM CDT Sexual Orientation Straight 03/31/2020 4: 04 PM CDT documented as of this encounter Plan of Treatment Not on file documented as of this encounter Procedures Procedure Name Priority Date/Time Associated Diagnosis Comments SCAN - RADIOLOGY/IMAGING 05/03/2011 documented in this encounter Results * SCAN - RADIOLOGY/IMAGING (05/03/2011) Anatomical Region Laterality Modality Other us Provider Scanning Final Result documented in this encounter Visit Diagnoses Not on filedocumented in this encounter Care Teams Warehouse Stocker Relationship Specialty Start Date End Date Opal Cruz MD [address] [place] [address] PCP - General Family Medicine 01/06/24 Katharine Singh MD Internal Medicine 02/16/19 documented as of this encounter
--- OUTSIDE RECORDS SUMMARY | 2025-01-12 08:40 | XMS_ITS | Encounter Summary ---
Author Organization [facility] Address [address] [place] [address] Care Team Providers Care Health Policy Manager Name Role Phone Katharine Singh MD Unavailable [phone] Opal Cruz MD Primary Care Provider Encounter Details Date Type Department Care Team (Late st Contact Info) Description 06/30/2011 Orders Only [facility] Health Information Management [address] [place] [address] Scanning, Provider Social History Tobacco Use Types Packs/Day Years Used Date Smoking Tobacco: Never Assessed Comments Unknown Sex and Gender Information Value Date Recorded Sex Assigned at Not on file Legal Sex Female 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 PM 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 Gender Identity Female 03/31/2020 4:04 PM CDT Sexual Orientation Straight 03/31/2020 4: 04 PM CDT documented as of this encounter Plan of Treatment Not on file documented as of this encounter Procedures Procedure Name Priority Date/Time Associated Diagnosis Comments SCAN - RADIOLOGY/IMAGING 06/30/2011 documented in this encounter Results * SCAN - RADIOLOGY/IMAGING (06/30/2011) Anatomical Region Laterality Modality Other us Provider Scanning Final Result documented in this encounter Visit Diagnoses Not on filedocumented in this encounter Care Teams Health Policy Manager Relationship Specialty Start Date End Date Opal Cruz MD [address] [place] [address] PCP - General Family Medicine 01/06/24 Katharine Singh MD Internal Medicine 02/16/19 documented as of this encounter
--- OUTSIDE RECORDS SUMMARY | 2025-01-12 08:40 | XMS_ITS | Referral Summary ---
Author Organization [facility] Address [address] [place] [address] Care Team Providers Care Accounts Executive Name Role Phone Katharine Singh MD Unavailable [phone] Opal Cruz MD Primary Care Provider Encounters Date Type Department Care Team Description 11/22/2024 8:24 AM PEANUT SEPARATOR - 11/22/2024 11:59 PM PEANUT SEPARATOR Hospital Encounter [facility] [address] [place] [address] Pre-employment health screening examination Discharge Disposition: Discharge to home or self care 11/22/2024 Orders Only [facility] Healthcare Occupatiuonal Health [address] (Third Floor) [place] [address] Vikram Mooney MD Pre-employment health screening examination (Primary Dx) from Last 3 Months Allergies Active Allergy Reactions Criticality Noted Date Comments Bupropion Hives Medium 06/16/2020 Medications levocetirizine (XYZAL) 5 mg tablet Take 1 tablet (5 mg total) by mouth every evening 10mg Active montelukast (SINGULAIR) 10 mg tablet Take 1 tablet (10 mg total) by mouth nightly Active albuterol HFA (PROVENTIL HFA,VENTOLIN HFA,PROAIR HFA) 90 mcg/actuation inhaler Inhale 2 puffs every 6 (six) hours as needed for wheezing Active dicyclomine (BENTYL) 10 mg capsule prn Active venlafaxine XR (EFFEXOR-XR) 75 mg 24 hr capsule Act liam levothyroxine (SYNTHROID) 75 mcg tablet 1 tablet (75 mcg total) seed potato arranger before breakfast Active Ubrelvy 100 mg tablet once as needed 01/23/20 22 Active omeprazole (PriLOSEC) 40 mg capsule Take 1 capsule (40 mg total) by mouth daily Active fremanezumab-vfr m (Ajovy Autoinjector) 225 mg/1.5 mL auto-injector subcutaneous auto-injector Inject 1.5 mL (225 mg total) under the skin every 30 (thirty) days Active rimegepant sulfate (NURTEC ODT ORAL) Take by mouth Every other day Active vitamin E (AQUASOL E) 400 unit capsuleIndicatio ns:Class 3 severe obesity with body mass index (BMI) of 40.0 to 44.9 in adult, unspecified obesity type, unspecified whether serious comorbidity present (HCC) Take 1 capsule (400 Units total) by mouth daily 30 capsule 11 08/25/20 23 Active hydrocortisone (ANUSOL-HC) 25 mg suppositoryIndic ations:Hemorrhoi ds Insert 1 suppository (25 mg total) into the rectum 2 (two) times a day as needed for hemorrhoids 24 suppository 5 12/20/19 24 Active Active Problems Problem Noted Date Diagnosed Date BRBPR (bright red blood per rectum) 12/21/2023 Elevated liver enzymes 12/09/2022 Positive JUNE (antinuclear antibody) 12/09/2022 Gastroesophageal reflux disease without esophagi tis 12/09/2022 Class 3 severe obesity with body mass index (BMI) of 40.0 to 44.9 in adult 12/09/2022 Family history of rectal cancer 12/09/2022 Migraine with aura and witho ut status migrainosus, not intractable 06/16/2020 Social History Tobacco Use Types Packs/Day Years Used Date Smoking Tobacco: Never Smokeless Tobacco: Never Tobacco Cessation:Counseling Given: Not Answered Alcohol Use Standard Drinks/Week Comments Yes 0 (1 standard drink = 0.6 oz pur e alcohol) AUDIT-C Answer Date Recorded Q1: How often do you have a drink containing alc ohol? Monthly or less 12/09/2022 Q2: How many drinks containi ng alcohol do you have on a typical day when you are drinking? 1 or 2 12/09/2022 Q3: How often do you have si x or more drinks on one occasion? Never 12/09/2022 Personal Safety Answer Date Recorded Have you ever been in or are you currently in a harmful physical or emotional relationship or is someone making you feel afraid or unsafe? Denies 01/06/2024 Comments No Sex and Gender Information Value Date Recorded Sex Assigned at Not on file Legal Sex Female 1:22 PM PEANUT SEPARATOR Gender Identity Female 03/31/2020 4:04 PM CDT Sexual Orientation Straight 03/31/2020 4: 04 PM CDT Last Filed Vital Signs Vital Sign Reading Time Taken Comments Blood Pressure 117/63 01/06/2024 1:08 PM CDT Pulse 85 01/06/2024 1:08 PM CDT Temperature 36.8 C (98.2 F) 01/06/2024 1:08 PM CDT Respiratory Rate 18 01/06/2024 1:08 PM CDT Oxygen Saturation 95% 01/06/2024 1:08 PM CDT Inhaled Oxygen Concentration - - Weight 99.8 kg (220 lb) 02/14/2024 9:41 AM CDT Height 157.5 cm (5' 2 ) 02/14/2024 9:41 AM CDT Body Mass Index 40.24 02/14/2024 9:41 AM CDT Plan of Treatment Not on file Procedures Procedure Name Priority Date/Time Associated Diagnosis Comments T-SPOT.TB Routine 11/22/2024 12:30 PM PEANUT SEPARATOR Pre-employment health screening examination HEPATITIS PANEL, ACUTE Routine 12/09/2022 2:11 PM PEANUT SEPARATOR Elevated liver enzymes from Last 3 Months or Most Recently Relevant to Health Maintenance Results * T-SPOT.TB Blood (11/22/2024 12:30 PM PEANUT SEPARATOR) [facility] T-SPOT.TB Negative SeeBelow Comment: Normal Value: Negative A negative test result does not exclude the possibility of exposure to or infection with Mycobacterium tuberculosis (M. tuberculosis). Patients with recent exposure to TB infected individuals exhibiting a negative T-SPOT.TB result should be considered for retesting within 6 weeks or if other relevant clinical symptoms indicate. Results from T-SPOT.TB testing must be used in conjunction with each individual's epidemiological history, current medical status, and results of other diagnostic evaluations. The T-SPOT.TB test is qualitative and results are reported as positive, borderline or negative, given that the test controls perform as expected. In line with the Centers for Disease Control and Prevention's 2010 recommendation to report quantitative measurements alongside the qualitative result, the laboratory provides spot counts for informational purposes only. The T-SPOT.TB test should not be interpreted as a quantitative test. T-SPOT.TB Panel A Spot Count 0 [facility] T-SPOT.TB Panel B Spot Count 0 [facility] T-SPOT.TB Negative Control Passed [facility] T-SPOT.TB Positive Control Passed [facility] Comment: Test Performed at: [facility], [address] [place] [id number] ERIC CRUZ,PHD Blood 11/22/2024 12:3 0 PM PEANUT SEPARATOR 11/22/2024 12:43 PM PEANUT SEPARATOR Narrative [facility] - 11/24/2024 12:37 PM PEANUT SEPARATOR Bill to [facility] - [facility] Patient is employed by/enrolled at:->[facility] Shared Services us Vikram Mooney MD LAB MICROBIOLOGY - GENERAL OR DERABLES Final Result [facility] Department [place] [address] * Hepatitis panel, acute (12/09/2022 2:11 PM PEANUT SEPARATOR) Hep A IgM Nonreactive Nonreactive CHINYERE OLIVARES ([place]ATHIEU) Comment: Interpretive Data: If Hep A IgM Ab is reported as Equivocal, a new sample should be drawn in two weeks for testing. Current interpretive data was last revised on 20. Testing performed by: [facility], [address] [place] [address], [place]., [id number] Hep B core IgM Nonreactive Nonreactive Jyoti OLIVARES (MATHIEU) Comment: Interpretive Data If HepB Core IgM Ab is reported as Equivocal, a new sample should be drawn in two weeks for testing. Current interpretive data was last revised on 20. Testing performed by: [facility], [address] [place] [address]., [id number] Hep C Ab Nonreactive Nonreactive CHINYERE OLIVARES ([place]ATHIEU) Comment: Interpretive Data Nonreactive: Antibodies to HCV not detected. Does NOT exclude the possibility of recent exposure to HCV. Equivocal: Equivocal for HCV antibodies. Supplemental molecular testing will be automatically performed to determine infection status in accordance with current CDC screening recommendations. Reactive: Positive for HCV antibodies. This may represent current or past HCV infection. Supplemental molecular testing will be automatically performed to determine current infection status in accordance with current CDC screening recommendations. Interpretive data was last revised on 2020. Testing performed by: [facility], [address] [place] [address]., [id number] HepBsAg Nonreactive Nonreactive CHINYERE OLIVARES ([place]ATHIEU) Comment:Testing performed by : [facility], [address] [place] [address]., [id number] Blood 12/09/2022 2:11 PM PEANUT SEPARATOR 12/09/2022 7:49 PM PEANUT SEPARATOR Shane Mosley NP LAB MICROBIOLOGY - GENERAL ORDERABLES Final Result CHINYERE OLIVARES ([place]) [facility] Department [place] [address] from Last 3 Months or Most Recently Relevant to Health Maintenance Insurance [employer] OPEN ACCESS [employer] Advance Directives For more information, please contact: [phone] * Full Code (Latest Code Status on File) Date Activated Date Inactivated Comments 01/06/2024 10:27 AM 01/06/2024 5:17 PM * Full Code Date Activated Date Inactivated Comments 01/06/2024 10:27 AM 01/06/2024 10:27 AM Care Teams Accounts Executive Relationship Specialty Start Date End Date Opal Cruz MD [address] [place] [id number] PCP - General Family Medicine 01/06/24 Katharine Singh MD Internal Medicine 02/16/19
--- OUTSIDE RECORDS SUMMARY | 2025-01-12 08:40 | XMS_ITS | Encounter Summary ---
Author Organization [facility] Address [address] [place] [address] Care Team Providers Care Lock And Dam Operator Name Role Phone Katharine Singh MD Unavailable [phone] Opal Cruz MD Primary Care Provider Encounter Details Date Type Department Care Team (Late st Contact Info) Description 02/21/2007 Orders Only [facility] Health Information Management [address] [place] [address] Scanning, Provider Social History Tobacco Use Types Packs/Day Years Used Date Smoking Tobacco: Never Assessed Comments Unknown Sex and Gender Information Value Date Recorded Sex Assigned at Not on file Legal Sex Female 1:22 PM ADVERTISING REP Gender Identity Female 03/31/2020 4:04 PM CDT Sexual Orientation Straight 03/31/2020 4: 04 PM CDT documented as of this encounter Plan of Treatment Not on file documented as of this encounter Procedures Procedure Name Priority Date/Time Associated Diagnosis Comments SCAN - RADIOLOGY/IMAGING 02/21/2007 documented in this encounter Results * SCAN - RADIOLOGY/IMAGING (02/21/2007) Anatomical Region Laterality Modality Other us Provider Scanning Final Result documented in this encounter Visit Diagnoses Not on filedocumented in this encounter Care Teams Lock And Dam Operator Relationship Specialty Start Date End Date Opal Cruz MD [address] [place] [address] PCP - General Family Medicine 01/06/24 Katharine Singh MD Internal Medicine 02/16/19 documented as of this encounter
--- OUTSIDE RECORDS SUMMARY | 2025-01-12 08:40 | XMS_ITS | Encounter Summary ---
Author Organization [facility] Address [address] [place] [address] Care Team Providers Care Hide Cooking Operator Name Role Phone Katharine Singh MD Unavailable [phone] Opal Cruz MD Primary Care Provider Encounter Details Date Type Department Care Team (Late st Contact Info) Description 05/26/2010 Orders Only [facility] Health Information Management [address] [place] [address] Scanning, Provider Social History Tobacco Use Types Packs/Day Years Used Date Smoking Tobacco: Never Assessed Comments Unknown Sex and Gender Information Value Date Recorded Sex Assigned at Not on file Legal Sex Female 1:22 PM 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 Gender Identity Female 03/31/2020 4:04 PM CDT Sexual Orientation Straight 03/31/2020 4: 04 PM CDT documented as of this encounter Plan of Treatment Not on file documented as of this encounter Procedures Procedure Name Priority Date/Time Associated Diagnosis Comments GI - RESULT 05/26/2010 documented in this encounter Results * GI - RESULT (05/26/2010) Anatomical Region Laterality Modality Other us Provider Scanning Final Result documented in this encounter Visit Diagnoses Not on filedocumented in this encounter Care Teams Hide Cooking Operator Relationship Specialty Start Date End Date Opal Cruz MD [address] [place] [address] PCP - General Family Medicine 01/06/24 Katharine Singh MD Internal Medicine 02/16/19 documented as of this encounter
--- OUTSIDE RECORDS SUMMARY | 2025-01-12 08:40 | XMS_ITS | Encounter Summary ---
Author Organization [facility] Address [address] [place] [address] Care Team Providers Care Professional Services Specialist Name Role Phone Katharine Singh MD Unavailable [phone] Opal Cruz MD Primary Care Provider Encounter Details Date Type Department Care Team (Late st Contact Info) Description 07/09/2011 Orders Only [facility] Health Information Management [address] [place] [address] Scanning, Provider Social History Tobacco Use Types Packs/Day Years Used Date Smoking Tobacco: Never Assessed Comments Unknown Sex and Gender Information Value Date Recorded Sex Assigned at Not on file Legal Sex Female 1:22 PM HOG CUTTER Gender Identity Female 03/31/2020 4:04 PM CDT Sexual Orientation Straight 03/31/2020 4: 04 PM CDT documented as of this encounter Plan of Treatment Not on file documented as of this encounter Procedures Procedure Name Priority Date/Time Associated Diagnosis Comments SCAN - PATHOLOGY 07/09/2011 SCAN - LABS 07/09/2011 documented in this encounter Results * SCAN - PATHOLOGY (07/09/2011) us Provider Scanning Final Result * SCAN - LABS (07/09/2011) us Provider Scanning Final Result documented in this encounter Visit Diagnoses Not on filedocumented in this encounter Care Teams Professional Services Specialist Relationship Specialty Start Date End Date Opal Cruz MD [address] [place] [address] PCP - General Family Medicine 01/06/24 Katharine Singh MD Internal Medicine 02/16/19 documented as of this encounter
--- OUTSIDE RECORDS SUMMARY | 2025-01-12 08:40 | XMS_ITS | Encounter Summary ---
Author Organization [facility] Address [address] [place] [address] Care Team Providers Care Side Trimmer Name Role Phone Katharine Singh MD Unavailable [phone] Opal Cruz MD Primary Care Provider Encounter Details Date Type Department Care Team (Late st Contact Info) Description 06/30/2010 Orders Only [facility] Health Information Management [address] [place] [address] Scanning, Provider Social History Tobacco Use Types Packs/Day Years Used Date Smoking Tobacco: Never Assessed Comments Unknown Sex and Gender Information Value Date Recorded Sex Assigned at Not on file Legal Sex Female 1:22 PM 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 Gender Identity Female 03/31/2020 4:04 PM CDT Sexual Orientation Straight 03/31/2020 4: 04 PM CDT documented as of this encounter Plan of Treatment Not on file documented as of this encounter Procedures Procedure Name Priority Date/Time Associated Diagnosis Comments SCAN - LABS 06/30/2010 documented in this encounter Results * SCAN - LABS (06/30/2010) us Provider Scanning Final Result documented in this encounter Visit Diagnoses Not on filedocumented in this encounter Care Teams Side Trimmer Relationship Specialty Start Date End Date Opal Cruz MD [address] [place] [address] PCP - General Family Medicine 01/06/24 Katharine Singh MD Internal Medicine 02/16/19 documented as of this encounter
--- OUTSIDE RECORDS SUMMARY | 2025-01-12 08:40 | XMS_ITS | Encounter Summary ---
Author Organization [facility] Medical [facility] Address [address] [place] [address] Care Team Providers Care Cyber Systems Operations Specialist Name Role Phone Katharine Singh MD Unavailable [phone] Opal Cruz MD Primary Care Provider Encounter Details Date Type Department Care Team (Late st Contact Info) Description 05/20/2011 Orders Only [facility] Health Information Management [address] [place] [address] Scanning, Provider Social History Tobacco Use Types Packs/Day Years Used Date Smoking Tobacco: Never Assessed Comments Unknown Sex and Gender Information Value Date Recorded Sex Assigned at Not on file Legal Sex Female 1:22 PM 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 Gender Identity Female 03/31/2020 4:04 PM CDT Sexual Orientation Straight 03/31/2020 4: 04 PM CDT documented as of this encounter Plan of Treatment Not on file documented as of this encounter Procedures Procedure Name Priority Date/Time Associated Diagnosis Comments SCAN - RADIOLOGY/IMAGING 05/20/2011 documented in this encounter Results * SCAN - RADIOLOGY/IMAGING (05/20/2011) Anatomical Region Laterality Modality Other us Provider Scanning Final Result documented in this encounter Visit Diagnoses Not on filedocumented in this encounter Care Teams Cyber Systems Operations Specialist Relationship Specialty Start Date End Date Opal Cruz MD [address] [place] [id number] PCP - General Family Medicine 01/06/24 Katharine Singh MD Internal Medicine 02/16/19 documented as of this encounter
--- OUTSIDE RECORDS SUMMARY | 2025-01-12 08:40 | XMS_ITS | Encounter Summary ---
Author Organization [facility] Medical Group Address [address] [place] [address] Care Team Providers Care Punch Press Operator Name Role Phone Katharine Singh MD Unavailable [phone] Opal Cruz MD Primary Care Provider Encounter Details Date Type Department Care Team (Late st Contact Info) Description 03/13/2007 Orders Only [facility] Health Information Management [address] [place] [address] Scanning, Provider Social History Tobacco Use Types Packs/Day Years Used Date Smoking Tobacco: Never Assessed Comments Unknown Sex and Gender Information Value Date Recorded Sex Assigned at Not on file Legal Sex Female 1:22 PM FISH CUTTING MACHINE OPERATOR Gender Identity Female 03/31/2020 4:04 PM CDT Sexual Orientation Straight 03/31/2020 4: 04 PM CDT documented as of this encounter Plan of Treatment Not on file documented as of this encounter Procedures Procedure Name Priority Date/Time Associated Diagnosis Comments SCAN - RADIOLOGY/IMAGING 03/13/2007 documented in this encounter Results * SCAN - RADIOLOGY/IMAGING (03/13/2007) Anatomical Region Laterality Modality Other us Provider Scanning Final Result documented in this encounter Visit Diagnoses Not on filedocumented in this encounter Care Teams Punch Press Operator Relationship Specialty Start Date End Date Opal Cruz MD [address] [place] [address] PCP - General Family Medicine 01/06/24 Katharine Singh MD Internal Medicine 02/16/19 documented as of this encounter
--- OUTSIDE RECORDS SUMMARY | 2025-01-12 08:40 | XMS_ITS | Clinical Summary ---
Author Organization [facility] Medical Office Building [address] Address [address] [place] [address] Care Team Providers Care Hand Clipper Name Role Phone Katharine Singh MD Unavailable [phone] Opal Cruz MD Primary Care Provider Allergies Active Allergy Reactions Criticality Noted Date [...] mcg tablet 1 tablet (75 mcg total) director of early childhood education before breakfast Active Ubrelvy 100 mg tablet once as needed 01/23/20 Active omeprazole (PriLOSEC) 40 mg capsule Take [...] witho ut status migrainosus, not intractable 06/16/2020 Encounters Date Type Department Care Team Description 11/22/2024 8:24 AM FIELD AGENT - 11/22/2024 11:59 PM [facility] Hospital Encounter [facility] [address] [place] [address] Pre-employment health screening examination Discharge Disposition: Discharge to home or self care 11/22/2024 Orders Only [facility] [address] [place] [address] Room 3420 (Third Floor) [place] [address] Vikram Mooney MD Pre-employment health screening examination (Primary Dx) from Last 3 Months Surgical History Surgery Date Site/Laterality Comments APPENDECTOMY CHOLECYSTECTOMY DILATION AND CURETTAGE OF UTERUS WISDOM TOOTH EXTRACTION TONSILLECTOMY COLONOSCOPY 05/24/2010 - 06/23/2010 COLONOSCOPY 01/06/2024 Medical History Medical History Date Comments Hypercholesteremia Asthma Thyroid disease Gastric reflux Migraines Depression Family History Medical History Relation Name Comments Rectal cancer Father Arthritis Other Cancer Other Diabetes Other Heart disease Other Hypertension Other Mental illness Other Stroke Other Relation Name Status Comments Father Other Social History Tobacco Use Types Packs/Day Years [...] on file Legal Sex Female 1:22 PM FIELD AGENT Gender Identity Female 03/31/2020 4:04 PM CDT Sexual Orientation Straight 03/31/2020 4: 04 PM CDT Obstetrics History Last Filed Vital Signs Vital Sign Reading [...] 02/14/2024 9:41 AM CDT Plan of Treatment Health Maintenance Due Date Last Done Comments Cervical Cancer Screening 1989 Depression Screening 1989 Varicella Vaccines (1 of 2 - 13+ 2-dose series) 2002 Hepatitis B Screening 2007 Regular Well Visit/Exam 18-64 2007 Influenza Vaccine (#1) 2024 9, 07/28/2016, 07/16/2015, Additional history exists DTaP/Tdap/Td Vaccine (3 - Td or Tdap) 07/16/2024 07/16/2014, 03/10/2012 Hepatitis C Screening Completed 12/09/2022 HPV Vaccines Aged Out No longer eligi ble based on patient's age to complete this topic Pneumococcal vaccine <65 Aged Out No longer eligible based on patient's age to complete this topic Procedures Procedure Name Priority Date/Time Associated Diagnosis Comments T-SPOT.TB Routine 11/22/2024 12:30 PM FIELD AGENT Pre-employment health screening examination HEPATITIS PANEL, ACUTE Routine 12/09/2022 2:11 PM FIELD AGENT Elevated liver enzymes from Last 3 Months or Most Recently Relevant to Health Maintenance Results * T-SPOT.TB Blood (11/22/2024 12:30 PM FIELD AGENT) [facility] T-SPOT.TB Negative SeeBelow Comment: Normal Value: Negative [...] test. T-SPOT.TB Panel A Spot Count 0 [facility] T-SPOT.TB Panel B Spot Count 0 [facility] T-SPOT.TB Negative Control Passed [facility] T-SPOT.TB Positive Control Passed [facility] Comment: Test Performed at: [facility] [address] [place] [id number] ERIC CRUZ,PHD Blood 11/22/2024 12:3 0 PM FIELD AGENT 11/22/2024 12:43 PM FIELD AGENT Narrative [facility] CO[facility] - 11/24/2024 12:37 PM FIELD AGENT Bill to [facility] - 1520 Patient is employed by/enrolled at:->[employer] Shared Services Vikram Mooney MD LAB MICROBIOLOGY - GENERAL OR DERABLES Final Result [facility] Department [place] [address] * Hepatitis panel, acute (12/09/2022 2:11 PM FIELD AGENT) Hep A IgM Nonreactive Nonreactive [facility] OLIVARES ([place]ATHIE[place]) Comment: Interpretive Data: If Hep A IgM Ab is reported as Equivocal, a new sample should be drawn in two weeks for testing. Current interpretive data was last revised on 20. Testing performed by: [address] [address] Hep B core IgM Nonreactive Nonreactive C MOHSENER ELISE (MATHIEU) Comment: Interpretive Data If HepB Core IgM Ab is reported as Equivocal, a new sample should be drawn in two weeks for testing. Current interpretive data was last revised on 20. Testing performed by: [facility], [address] [place] [address]., [id number] Hep C Ab Nonreactive Nonreactive CHINYERE OLIVARES [...] last revised on 2020. Testing performed by: [address] [address] HepBsAg Nonreactive Nonreactive [facility] OLIVARES ([place]ATHIEU) Comment:Testing performed by : [address] [address] Blood 12/09/2022 2:11 PM FIELD AGENT 12/09/2022 7:49 PM FIELD AGENT Shane Mosley ELECTRICAL HIGH TENSION TESTER LAB MICROBIOLOGY - GENERAL ORDERABLES Final Result [facility] ([place]) [facility] Department of Laboratories [place] [id number] from Last 3 Months or Most Recently Relevant to Health Maintenance Insurance COMMERCIAL GENERIC [employer] OPEN ACCESS CIG[employer] Advance Directives For more information, please contact: [phone] * Full Code (Latest Code Status on File) Date Activated Date Inactivated Comments 01/06/2024 10:27 AM 01/06/2024 5:17 PM * Full Code Date Activated Date Inactivated Comments 01/06/2024 10:27 AM 01/06/2024 10:27 AM Care Teams Hand Clipper Relationship Specialty Start Date End Date Opal Cruz MD [address] [place] [address] PCP - General Family Medicine 01/06/24 Katharine Singh MD Internal Medicine 02/16/19
[2025-01-12 08:54] LABS: Basophils Absolute Auto 0.09 K/mm3 (0.00-0.10); Basophils Percent Auto 0.8 % (0.0-1.0); Eosinophils Absolute Auto 0.21 K/mm3 (0.02-0.50); Eosinophils Percent Auto 1.9 % (1.0-6.0); Hematocrit 41.2 % (35.0-49.0); Immature Granulocyte Absolute 0.05 K/mm3 (0.00-0.00); Immature Granulocyte Percent A 0.5 % (0.0-0.0); Lymphocytes Absolute Auto 3.62 K/mm3 (1.10-4.50); Lymphocytes Percent Auto 33.2 % (18.0-42.0); Mean Corpuscular Hemoglobin 30.8 pg (27.0-31.0); Mean Corpuscular Volume 90.7 fL (78.0-102.0); Monocytes Absolute Auto 0.57 K/mm3 (0.10-0.90); Monocytes Percent Auto 5.2 % (2.0-11.0); Neutrophils Absolute Auto 6.37 K/mm3 (1.70-7.20); Neutrophils Percent Auto 58.4 % (50.0-70.0); Platelet Count Result 438 K/mm3 (150-420); Red Blood Count 4.54 M/mm3 (4.20-5.40); Red Cell Distribution Width 12.4 % (11.6-14.4); White Blood Count 10.9 K/mm3 (4.8-10.8)
[2025-01-12 09:03] LABS: Hemoglobin A1C 5.2 % (<5.7)
[2025-01-12 09:55] LABS: Alanine Aminotransferase 33 U/L (14-59); Alkaline Phosphatase 129 U/L (46-116); Anion Gap 9 mmol/L (4-12); Aspartate Amino Transferase 16 U/L (15-37); Bilirubin,Total 0.4 mg/dL (0.00-1.00); Blood Urea Nitrogen 12 mg/dL (7-18); Calcium 9.6 mg/dL (8.5-10.1); Carbon Dioxide 27 mmol/L (21-32); Chloride 104 mmol/L (98-108); Cholesterol 216 mg/dL (0-200); Estimated Glomerular Filt Rate > 60; Free T4 Free Thyroxine 1.05 ng/dL (0.76-1.46); Glucose 83 mg/dL (70-99); HDL Direct 52 mg/dL (40-60); LDL Cholesterol Calculated 119 mg/dL (<130); Osmolality Calculated 288 mOsm/kg (285-295); Potassium 4.3 mmol/L (3.5-5.1); Sodium 140 mmol/L (136-145); Total Protein 7.3 g/dL (6.4-8.2); Triglycerides 224 mg/dL (0-150); Vitamin B12 636 pg/mL (193-986)
[2025-01-12 09:59] LABS: Folic Acid > 20.0 ng/mL (8.6->20)
[2025-01-14 20:00] LABS: Vitamin D 25 Hydroxy 29 ng/mL (30-100)
[2025-01-14 21:58] LABS: Total Triiodothyronine (T3) 101 ng/dL (76-181)
== END 2025-01-12 08:34 | disposition home or self-care (01) ==
PROVIDERS: PCP Family Medicine; Visit Provider Family Medicine
DX: E78.5 Hyperlipidemia, unspecified (principal); K76.0 Fatty (change of) liver, not elsewhere classified; E06.3 Autoimmune thyroiditis; R79.89 Other specified abnormal findings of blood chemistry; F32.1 Major depressive disorder, single episode, moderate; E66.01 Morbid (severe) obesity due to excess calories
CPT/HCPCS: 36415; 80053; 80061; 82306; 82607; 82746; 83036; 84439; 84443; 84480; 85025

== ENCOUNTER 2025-06-25 14:01 | Outpatient (CLI) | payer OTHER, SELFPAY ==
--- NOTE | ~2025-06-25 | XR_ITS ---
Clinical history:Acute neck pain EXAM:X-ray cervical spine 2-3 views TECHNIQUE:3 images of the cervical spine were obtained Comparisons:None available FINDINGS: Straightening of the normal cervical lordosis. Predental space is within normal limits. Mild degenerative change throughout the cervical spine. No compression fracture in the cervical spine. Lateral dental intervals are within normal limits. IMPRESSION: 1. Straightening of the normal cervical lordosis. 2. No compression fracture in the cervical spine. 3. Mild degenerative change throughout the cervical spine. If symptoms persist or worsen, consider a MRI of the cervical spine for further assessment. Reviewed, dictated and finalized at location Q.
--- OUTSIDE RECORDS SUMMARY | 2025-06-25 14:16 | XMS_ITS | Encounter Summary ---
Author Organization [facility] Medical Group Address [address] [place] [address] Care Team Providers Care Assembler Ping Pong Table Name Role Phone Katharine Singh MD Unavailable [phone] Opal Cruz MD Primary Care Provider Encounter Details Date Type Department Care Team (Late st Contact Info) Description 02/21/2007 Orders Only [facility] [place] Information Management [address] [place] [address] Scanning, Provider Social History Tobacco Use Types Packs/Day Years Used Date Smoking Tobacco: Never Assessed Comments Unknown Sex and Gender Information Value Date Recorded Sex Assigned at Not on file Legal Sex Female 1:22 PM BED WORKER Gender Identity Female 03/31/2020 4:04 PM CDT [...] on filedocumented in this encounter Care Teams Assembler Ping Pong Table Relationship Specialty Start Date End Date Opal Cruz MD [address] [place] [address] PCP - General Family Medicine 01/06/24 Katharine Singh MD Internal Medicine 02/16/19 documented as of this encounter
--- OUTSIDE RECORDS SUMMARY | 2025-06-25 14:16 | XMS_ITS | Encounter Summary ---
Author Organization [facility] Medical Group Address [address] [place] [address] Care Team Providers Care Chicken Handler Name Role Phone Katharine Singh MD Unavailable [phone] Opal Cruz MD Primary Care Provider Encounter Details Date Type Department Care Team (Late st Contact Info) Description 06/30/2010 Orders Only [facility] [place] Health Information Management [address] [place] [address] Scanning, Provider Social History Tobacco Use Types Packs/Day Years Used Date Smoking Tobacco: Never Assessed Comments Unknown Sex and Gender Information Value Date Recorded Sex Assigned at Not on file Legal Sex Female 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
--- OUTSIDE RECORDS SUMMARY | 2025-06-25 14:16 | XMS_ITS | Encounter Summary ---
Author Organization [facility] Medical Group Address [address] [place] [address] Care Team Providers Care Fast Brim Pouncer Name Role Phone Katharine Singh MD Unavailable [phone] Opal Cruz MD Primary Care Provider Encounter Details Date Type Department Care Team (Late Contact Info) Description 09/02/2010 Orders Only [facility] [place] Health Information Management [address] [place] [address] Scanning, Provider Social History Tobacco Use Types Packs/Day Years Used Date Smoking Tobacco: Never Assessed Comments Unknown Sex and Gender Information Value Date Recorded Sex Assigned at Not on file Legal Sex Female 1:22 PM WINDOW SHADE RING 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
--- OUTSIDE RECORDS SUMMARY | 2025-06-25 14:16 | XMS_ITS | Encounter Summary ---
Author Organization [facility] Medical Group Address [address] [place] [address] Care Team Providers Care Cardiovascular Operating Room Nurse Name Role Phone Katharine Singh MD Unavailable [phone] Opal Cruz MD Primary Care Provider Encounter Details Date Type Department Care Team (Late st Contact Info) Description 05/26/2010 Orders Only [facility] Health Information Management [address] [place] [address] Scanning, Provider Social History Tobacco Use Types Packs/Day Years Used Date Smoking Tobacco: Never Assessed Comments Unknown Sex and Gender Information Value Date Recorded Sex Assigned at Not on file Legal Sex Female 1:22 PM MOLDER LABELS Gender Identity Female 03/31/2020 4:04 PM CDT [...] on filedocumented in this encounter Care Teams Cardiovascular Operating Room Nurse Relationship Specialty Start Date End Date Opal Cruz MD [address] [place] [address] PCP - General Family Medicine 01/06/24 Katharine Singh MD Internal Medicine 02/16/19 documented as of this encounter
--- OUTSIDE RECORDS SUMMARY | 2025-06-25 14:16 | XMS_ITS | Encounter Summary ---
Author Organization [facility] Medical Group Address [address] [place] [address] Care Team Providers Care Endoscopy Nurse Name Role Phone Katharine Singh MD Unavailable [phone] Opal Cruz MD Primary Care Provider Encounter Details Date Type Department Care Team (Late st Contact Info) Description 05/20/2011 Orders Only [facility] Health Information Management [address] [place] [address] Scanning, Provider Social History Tobacco Use Types Packs/Day Years Used Date Smoking Tobacco: Never Assessed Comments Unknown Sex and Gender Information Value Date Recorded Sex Assigned at Not on file Legal Sex Female 1:22 PM FRUIT ROOM HAND Gender Identity Female 03/31/2020 4:04 PM CDT [...] on filedocumented in this encounter Care Teams Endoscopy Nurse Relationship Specialty Start Date End Date Opal Cruz MD [address] [place] [address] PCP - General Family Medicine 01/06/24 Katharine Singh MD Internal Medicine 02/16/19 documented as of this encounter
--- OUTSIDE RECORDS SUMMARY | 2025-06-25 14:16 | XMS_ITS | Clinical Summary ---
Author Organization [facility] Medical Office Building B Address [address] [place] [address] Care Team Providers Care Hand Miter Operator Name Role Phone Katharine Singh MD Unavailable [phone] Opal Cruz MD Primary Care Provider Allergies [...] mcg tablet 1 tablet (75 mcg total) armhole baster jumpbasting before breakfast Active Ubrelvy 100 mg tablet [...] obesity type, unspecified whether serious comorbidity present Take 1 capsule (400 Units total) by [...] witho ut status migrainosus, not intractable 06/16/2020 Surgical History Surgery Date Site/Laterality Comments APPENDECTOMY [...] on file Legal Sex Female 1:22 PM ROOF BOLTING COAL MINER Gender Identity Female 03/31/2020 4:04 PM CDT [...] CDT Inhaled Oxygen Concentration - - Weight 102.1 kg (225 lb) 03/02/2025 7:25 AM CDT Height 157.5 cm (5' 2) 03/02/2025 7:25 AM CDT Body Mass Index 41.15 03/02/2025 7:25 AM CDT Plan of Treatment Health Maintenance Due Date Last Done Comments Cervical Cancer Screening 1989 Depression Screening 1989 Varicella Vaccines (1 of 2 - 13+ 2-dose series) 2002 Hepatitis B Screening 2007 Regular Well Visit/Exam 18-64 2007 HPV Vaccines (1 - 3-dose SCDM series) 2016 DTaP/Tdap/Td Vaccine (3 - Td or Tdap) 07/16/2024 07/16/2014, 03/10/2012 Influenza Vaccine (#1) 2025 9, 07/28/2016, 07/16/2015, Additional history exists Hepatitis C Screening Completed 12/09/2022 Pneumococcal vaccine <65 Aged Out No longer eligible based on patient's age to complete this topic Procedures Procedure Name Priority Date/Time Associated Diagnosis Comments HEPATITIS PANEL, ACUTE Routine 12/09/2022 2:11 PM ROOF BOLTING COAL MINER Elevated liver enzymes from Last 3 Months or Most Recently Relevant to Health Maintenance Results * Hepatitis panel, acute (12/09/2022 2:11 PM ROOF BOLTING COAL MINER) Hep A IgM Nonreactive Nonreactive [facility] OLIVAR[facility] ([place]ATHIEU) Comment: Interpretive Data: If Hep A IgM Ab is reported as Equivocal, a new sample should be drawn in two weeks for testing. Current interpretive data was last revised on 20. Testing performed by: [facility], [address] [place] [address]., [id number] Hep B core IgM Nonreactive Nonreactive C ERNER ELISE (MATHIEU) Comment: Interpretive Data If HepB Core IgM Ab is reported as Equivocal, a new sample should be drawn in two weeks for testing. Current interpretive data was last revised on 20. Testing performed by: [facility], [address] [place] [address]., [address] Hep C Ab Nonreactive Nonreactive CHINYERE OLIVARES [...] last revised on 2020. Testing performed by: [facility], [address] [place] [address]., [address] HepBsAg Nonreactive Nonreactive [facility]ERE OLIVARES ([place]ATHIEU) Comment:Testing performed by : [facility], [address] [place] [address]., [id number] Blood 12/09/2022 2:11 PM ROOF BOLTING COAL MINER 12/09/2022 7:49 PM ROOF BOLTING COAL MINER Shane Mosley CANDY DIPPER HAND LAB MICROBIOLOGY - GENERAL ORDERABLES Final Result [facility]ERE ELISE ([place]) [facility] Department [place] [employer] [place] [address] from Last 3 Months or Most Recently Relevant to Health Maintenance Insurance CIGNA CIGNA Advance Directives For more information, please contact: [phone] * Full Code (Latest Code Status on File) Date Activated Date Inactivated Comments 01/06/2024 10:27 AM 01/06/2024 5:17 PM * Full Code Date Activated Date Inactivated Comments 01/06/2024 10:27 AM 01/06/2024 10:27 AM Care Teams Hand Miter Operator Relationship Specialty Start Date End Date Opal Cruz MD [address] [place] [address] PCP - General Family Medicine 01/06/24 Katharine Singh MD Internal Medicine 02/16/19
--- OUTSIDE RECORDS SUMMARY | 2025-06-25 14:16 | XMS_ITS | Encounter Summary ---
Author Organization [facility] Medical Group Address [address] [place] [address] Care Team Providers Care Membership Coordinator Name Role Phone Katharine Singh MD Unavailable [phone] Opal Cruz MD Primary Care Provider Encounter Details Date Type Department Care Team ([facility] Contact Info) Description 07/09/2011 Orders Only [facility] [place] Information Management [address] [place] [address] Scanning, Provider Social History Tobacco Use Types Packs/Day Years Used Date Smoking Tobacco: Never Assessed Comments Unknown Sex and Gender Information Value Date Recorded Sex Assigned at Not on file Legal Sex Female 1:22 PM CRM 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
--- OUTSIDE RECORDS SUMMARY | 2025-06-25 14:16 | XMS_ITS | Encounter Summary ---
Author Organization [facility] Medical Group Address [address] [place] [address] Care Team Providers Care Desktop Administrator Name Role Phone Katharine Singh MD Unavailable [phone] Opal Cruz MD Primary Care Provider Encounter Details Date Type Department Care Team (Late st Contact Info) Description 06/30/2011 Orders Only [facility] [place] Health Information Management [address] [place] [address] Scanning, Provider Social History Tobacco Use Types Packs/Day Years Used Date Smoking Tobacco: Never Assessed Comments Unknown Sex and Gender Information Value Date Recorded Sex Assigned at Not on file Legal Sex Female 1:22 PM 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
--- OUTSIDE RECORDS SUMMARY | 2025-06-25 14:16 | XMS_ITS | Encounter Summary ---
Author Organization [facility] Medical Group Address [address] [place] [address] Care Team Providers Care Lead Laying And Gluing Machine Operator Name Role Phone Katharine Singh MD Unavailable [phone] Opal Cruz MD Primary Care Provider Encounter Details Date Type Department Care Team (Late st Contact Info) Description 03/13/2007 Orders Only [facility] [place] Health Information Management [address] [place] [address] Scanning, Provider Social History Tobacco Use Types Packs/Day Years Used Date Smoking Tobacco: Never Assessed Comments Unknown Sex and Gender Information Value Date Recorded Sex Assigned at Not on file Legal Sex Female 1:22 PM REDEVELOPMENT MANAGER Gender Identity Female 03/31/2020 4:04 PM CDT [...] on filedocumented in this encounter Care Teams Lead Laying And Gluing Machine Operator Relationship Specialty Start Date End Date Opal Curz MD [address] [place] [address] PCP - General Family Medicine 01/06/24 Katharine Singh MD Internal Medicine 02/16/19 documented as of this encounter
--- OUTSIDE RECORDS SUMMARY | 2025-06-25 14:16 | XMS_ITS | Encounter Summary ---
Author Organization [facility] Medical Group Address [address] [place] [address] Care Team Providers Care Fuse Coiler Name Role Phone Katharine Singh MD Unavailable [phone] Opal Cruz MD Primary Care Provider Encounter Details Date Type Department Care Team (Late st Contact Info) Description 05/03/2011 Orders Only [facility] [place] Health Information Management [address] [place] [address] Scanning, Provider Social History Tobacco Use Types Packs/Day Years Used Date Smoking Tobacco: Never Assessed Comments Unknown Sex and Gender Information Value Date Recorded Sex Assigned at Not on file Legal Sex Female 1:22 PM CERTIFIED LACTATION EDUCATOR Gender Identity Female 03/31/2020 4:04 PM CDT [...] on filedocumented in this encounter Care Teams Fuse Coiler Relationship Specialty Start Date End Date Opal Cruz MD [address] [place] [address] PCP - General Family Medicine 01/06/24 Katharine Singh MD Internal Medicine 02/16/19 documented as of this encounter
== END 2025-06-25 14:02 | disposition home or self-care (01) ==
LOC: CHSLAB 14:02
PROVIDERS: PCP Family Medicine; Visit Provider Family Medicine
DX: M54.2 Cervicalgia (principal); M43.8X2 Other specified deforming dorsopathies, cervical region
CPT/HCPCS: 72040

== ENCOUNTER 2025-06-28 12:52 | Outpatient (CLI) | payer OTHER, SELFPAY ==
--- NOTE | ~2025-06-28 | US_ITS ---
EXAMINATION: US axilla BI DATE: 06/28/2025 13:17 INDICATION: Central axillary lymphadenopathy TECHNIQUE: Multiple grayscale and Doppler ultrasound images of the bilateral axillae were obtained. COMPARISON: None FINDINGS: There are a couple normal sized and appearing lymph nodes about the left axilla and at the right axilla. These demonstrate typical appearance of central echogenic fatty dominique and measure up to measuring up to 8 mm in maximal short axis diameter on the right and 6 mm in maximal short axis diameter on the left. No other abnormally appearing or pathologically enlarged axillary lymphadenopathy. No other abnormal masses or fluid collections identified. IMPRESSION: 1. Normal bilateral axillary lymph nodes. Reviewed, dictated and finalized at location A.
--- OUTSIDE RECORDS SUMMARY | 2025-06-28 12:59 | XMS_ITS | Encounter Summary ---
Author Organization [facility] Medical Group Address [address] [place] [address] Care Team Providers Care Tube Balancer Name Role Phone Katharine Singh MD Unavailable [phone] Opal Cruz MD Primary Care Provider Encounter Details Date Type Department Care Team (Late st Contact Info) Description 05/26/2010 Orders Only [facility] [place] Health Information Management [address] [place] [address] Scanning, Provider Social History Tobacco Use Types Packs/Day Years Used Date Smoking Tobacco: Never Assessed Comments Unknown Sex and Gender Information Value Date Recorded Sex Assigned at Not on file Legal Sex Female 1:22 PM PAPER SAMPLE CLERK Gender Identity Female 03/31/2020 4:04 PM CDT [...] on filedocumented in this encounter Care Teams Tube Balancer Relationship Specialty Start Date End Date Opal Cruz MD [address] [place] [address] PCP - General Family Medicine 01/06/24 Katharine Singh MD Internal Medicine 02/16/19 documented as of this encounter
--- OUTSIDE RECORDS SUMMARY | 2025-06-28 12:59 | XMS_ITS | Encounter Summary ---
Author Organization [facility] Medical [facility] Address [address] [facility] [address] [place] [address] Care Team Providers Care Site Supervising Technical Operator Name Role Phone Katharine Singh MD Unavailable [phone] Opal Cruz MD Primary Care Provider Encounter Details Date Type Department Care Team (Late st Contact Info) Description 02/21/2007 Orders Only [facility] [place] Information Management [address] [place] [address] Scanning, Provider Social History Tobacco Use Types Packs/Day Years Used Date Smoking Tobacco: Never Assessed Comments Unknown Sex and Gender Information Value Date Recorded Sex Assigned at Not on file Legal Sex Female 1:22 PM RN OFFICE Gender Identity Female 03/31/2020 4:04 PM CDT [...] on filedocumented in this encounter Care Teams Site Supervising Technical Operator Relationship Specialty Start Date End Date Opal Cruz MD [address] [place] [address] PCP - General Family Medicine 01/06/24 Katharine Singh MD Internal Medicine 02/16/19 documented as of this encounter
--- OUTSIDE RECORDS SUMMARY | 2025-06-28 12:59 | XMS_ITS | Encounter Summary ---
Author Organization [facility] Medical Group Address [address] [place] [address] Care Team Providers Care Tool Straightener Name Role Phone Katharine Singh MD Unavailable [phone] Opal Cruz MD Primary Care Provider Encounter Details Date Type Department Care Team (Late st Contact Info) Description 03/13/2007 [place] [facility] [place] [address] [place] [address] Scanning, Provider Social History Tobacco Use Types Packs/Day Years Used Date Smoking Tobacco: Never Assessed Comments Unknown Sex and Gender Information Value Date Recorded Sex Assigned at Not on file Legal Sex Female 1:22 PM WET INSPECTOR OPTICAL 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
--- OUTSIDE RECORDS SUMMARY | 2025-06-28 12:59 | XMS_ITS | Encounter Summary ---
Author Organization [facility] Medical Group Address [address] [place] [address] Care Team Providers Care Parachute Panel Joiner Name Role Phone Katharine Singh MD Unavailable [phone] Opal Cruz MD Primary Care Provider Encounter Details Date Type Department Care Team (Late st Contact Info) Description 05/03/2011 Orders Only [facility] [place] Health Information Management [address] [place] [address] Scanning, Provider Social History Tobacco Use Types Packs/Day Years Used Date Smoking Tobacco: Never Assessed Comments Unknown Sex and Gender Information Value Date Recorded Sex Assigned at Not on file Legal Sex Female 1:22 PM FREIGHT RATE SPECIALIST Gender Identity Female 03/31/2020 4:04 PM CDT [...] on filedocumented in this encounter Care Teams Parachute Panel Joiner Relationship Specialty Start Date End Date Opal Cruz MD [address] [place] [address] PCP - General Family Medicine 01/06/24 Katharine Singh MD Internal Medicine 02/16/19 documented as of this encounter
--- OUTSIDE RECORDS SUMMARY | 2025-06-28 12:59 | XMS_ITS | Clinical Summary ---
Author Organization [facility] Building [facility] Address [address] [place] [address] Care Team Providers Care Vice President Client Services Name Role Phone Katharine Singh MD Unavailable [phone] Opal Cruz MD Primary Care Provider Allergies [...] mcg tablet 1 tablet (75 mcg total) bleacher sulfite pulp before breakfast Active Ubrelvy 100 mg tablet [...] on file Legal Sex Female 1:22 PM EMERGENCY MANAGEMENT PROGRAM SPECIALIST Gender Identity Female 03/31/2020 4:04 PM [...] HEPATITIS PANEL, ACUTE Routine 12/09/2022 2:11 PM EMERGENCY MANAGEMENT PROGRAM SPECIALIST Elevated liver enzymes from Last 3 Months or Most Recently Relevant to Health Maintenance Results * Hepatitis panel, acute (12/09/2022 2:11 PM EMERGENCY MANAGEMENT PROGRAM SPECIALIST) Hep A IgM Nonreactive Nonreactive [facility]IN[facility] OLIVARES (MATHIEU) Comment: Interpretive Data: If Hep A IgM Ab is reported as Equivocal, a new sample should be drawn in two weeks for testing. Current interpretive data was last revised on 20. Testing performed by: [facility], [address] [place] [address]., [id number] Hep B core IgM Nonreactive Nonreactive C ERNER ELISE (MATHIEU) Comment: Interpretive Data If HepB Core IgM Ab is reported as Equivocal, a new sample should be drawn in two weeks for testing. Current interpretive data was last revised on 20. Testing performed by: [facility], [address] [place] [address]., [id number] Hep C Ab Nonreactive Nonreactive CHINYERE OLIVARES [...] last revised on 2020. Testing performed by: [facility], [address] [place] [address]., [id number] HepBsAg Nonreactive Nonreactive CHINYERE OLIVARES (MATHIEU) Comment:Testing performed by : [facility], [address] [place] [address]., [id number] Blood 12/09/2022 2:11 PM EMERGENCY MANAGEMENT PROGRAM SPECIALIST 12/09/2022 7:49 PM EMERGENCY MANAGEMENT PROGRAM SPECIALIST Shane Mosley TRAFFIC SIGNAL REPAIRER LAB MICROBIOLOGY - GENERAL ORDERABLES Final Result [facility]INYERE ELISE (MATHIEU) 1 [facility] Department [place] [employer] [place] [address] from Last 3 Months or Most Recently Relevant to Health Maintenance Insurance CIGNA CIGNA Advance Directives For more information, please contact: [phone] * Full Code (Latest Code Status on File) Date Activated Date Inactivated Comments 01/06/2024 10:27 AM 01/06/2024 5:17 PM * Full Code Date Activated Date Inactivated Comments 01/06/2024 10:27 AM 01/06/2024 10:27 AM Care Teams Vice President Client Services Relationship Specialty Start Date End Date Opal Cruz MD [address] [place] [address] PCP - General Family Medicine 01/06/24 Katharine Singh MD Internal Medicine 02/16/19
--- OUTSIDE RECORDS SUMMARY | 2025-06-28 12:59 | XMS_ITS | Encounter Summary ---
Author Organization [facility] Medical [facility] Address [address] [place] [address] Care Team Providers Care Public Health Program Manager Name Role Phone Katharine Singh MD Unavailable [phone] Opal Cruz MD Primary Care Provider Encounter Details Date Type Department Care Team (Late st Contact Info) Description 06/30/2011 Orders Only [facility] [place] Health Information Management [address] [place] [address] Scanning, Provider Social History Tobacco Use Types Packs/Day Years Used Date Smoking Tobacco: Never Assessed Comments Unknown Sex and Gender Information Value Date Recorded Sex Assigned at Not on file Legal Sex Female 1:22 PM HUSBANDRY TECHNICIAN Gender Identity Female 03/31/2020 4:04 PM CDT [...] on filedocumented in this encounter Care Teams Public Health Program Manager Relationship Specialty Start Date End Date Opal Cruz MD [address] [place] [address] PCP - General Family Medicine 01/06/24 Katharine Singh MD Internal Medicine 02/16/19 documented as of this encounter
--- OUTSIDE RECORDS SUMMARY | 2025-06-28 12:59 | XMS_ITS | Encounter Summary ---
Author Organization [facility] Medical Group Address [address] [place] [address] Care Team Providers Care Ems Coordinator Name Role Phone Katharine Singh MD Unavailable Opal Cruz MD Primary Care Provider Encounter Details Date Type Department Care Team (Late st Contact Info) Description 05/20/2011 Orders Only [facility] Health Information Management [address] [place] [address] Scanning, Provider Social History Tobacco Use Types Packs/Day Years Used Date Smoking Tobacco: Never Assessed Comments Unknown Sex and Gender Information Value Date Recorded Sex Assigned at Not on file Legal Sex Female 1:22 PM REPORTING MANAGER Gender Identity Female 03/31/2020 4:04 PM [...] on filedocumented in this encounter Care Teams Ems Coordinator Relationship Specialty Start Date End Date Opal Cruz MD [address] [place] [address] PCP - General Family Medicine 01/06/24 Katharine Singh MD Internal Medicine 02/16/19 documented as of this encounter
--- OUTSIDE RECORDS SUMMARY | 2025-06-28 13:00 | XMS_ITS | Encounter Summary ---
Author Organization [facility] Medical [facility] Address [address] [place] [address] Care Team Providers Care Service Inspector Name Role Phone Katharine Singh MD Unavailable Opal Cruz MD Primary Care Provider Encounter Details Date Type Department Care Team (Late st Contact Info) Description 06/30/2010 Orders Only [facility] [place] Health Information Management [address] [place] [address] Scanning, Provider Social History Tobacco Use Types Packs/Day Years Used Date Smoking Tobacco: Never Assessed Comments Unknown Sex and Gender Information Value Date Recorded Sex Assigned at Not on file Legal Sex Female 1:22 PM 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
--- OUTSIDE RECORDS SUMMARY | 2025-06-28 13:00 | XMS_ITS | Encounter Summary ---
Author Organization [facility] Medical [facility] Address [address] [place] [address] Care Team Providers Care Hydroponics Worker Name Role Phone Katharine Singh MD Unavailable Opal Cruz MD Primary Care Provider Encounter Details Date Type Department Care Team (Late Contact Info) Description 09/02/2010 Orders Only [facility] [place] Health Information Management [address] [place] [address] Scanning, Provider Social History Tobacco Use Types Packs/Day Years Used Date Smoking Tobacco: Never Assessed Comments Unknown Sex and Gender Information Value Date Recorded Sex Assigned at Not on file Legal Sex Female 1:22 PM CLINICAL CARE LEADER Gender Identity Female 03/31/2020 4:04 PM CDT [...] on filedocumented in this encounter Care Teams Hydroponics Worker Relationship Specialty Start Date End Date Opal Cruz MD [address] [place] [address] PCP - General Family Medicine 01/06/24 Katharine Singh MD Internal Medicine 02/16/19 documented as of this encounter
--- OUTSIDE RECORDS SUMMARY | 2025-06-28 13:00 | XMS_ITS | Encounter Summary ---
Author Organization [facility] Medical Group Address [address] [place] [address] Care Team Providers Care Trial Management Associate Name Role Phone Katharine Singh MD Unavailable [phone] Opal Cruz MD Primary Care Provider Encounter Details Date Type Department Care Team ([facility] Contact Info) Description 07/09/2011 Orders Only [facility] [place] Health Information Management [address] [place] [address] Scanning, Provider Social History Tobacco Use Types Packs/Day Years Used Date Smoking Tobacco: Never Assessed Comments Unknown Sex and Gender Information Value Date Recorded Sex Assigned at Not on file Legal Sex Female 1:22 PM METAL TURNER Gender Identity Female 03/31/2020 4:04 PM CDT [...] on filedocumented in this encounter Care Teams Trial Management Associate Relationship Specialty Start Date End Date Opal Cruz MD [address] [place] [address] PCP - General Family Medicine 01/06/24 Katharine Singh MD Internal Medicine 02/16/19 documented as of this encounter
== END 2025-06-28 12:53 | disposition home or self-care (01) ==
LOC: CHSIMG 12:54
PROVIDERS: PCP Family Medicine; Visit Provider Family Medicine
DX: R59.0 Localized enlarged lymph nodes (principal)
CPT/HCPCS: 76882

== ENCOUNTER 2025-08-03 08:39 | Outpatient (CLI) | payer OTHER, SELFPAY ==
--- OUTSIDE RECORDS SUMMARY | 2025-08-03 08:44 | XMS_ITS | Encounter Summary ---
Author Organization [facility] Medical Group Address [address] [place] [address] Care Team Providers Care Tariff Inspector Name Role Phone Katharine Singh MD Unavailable [phone] Opal Cruz MD Primary Care Provider Encounter Details Date Type Department Care Team (Late st Contact Info) Description 02/21/2007 Orders Only [facility] [place] Health Information Management [address] [place] [address] Scanning, Provider Social History Tobacco Use Types Packs/Day Years Used Date Smoking Tobacco: Never Assessed Comments Unknown Sex and Gender Information Value Date Recorded Sex Assigned at Not on file Legal Sex Female 1:22 PM 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
--- OUTSIDE RECORDS SUMMARY | 2025-08-03 08:44 | XMS_ITS | Encounter Summary ---
Author Organization [facility] Medical [facility] Address [address] [place] [address] Care Team Providers Care Heavy Cleaner Name Role Phone Katharine Singh MD Unavailable [phone] Opal Cruz MD Primary Care Provider Encounter Details Date Type Department Care Team (Late st Contact Info) Description 05/26/2010 Orders Only [facility] [place] Health Information Management [address] [place] [address] Scanning, Provider Social History Tobacco Use Types Packs/Day Years Used Date Smoking Tobacco: Never Assessed Comments Unknown Sex and Gender Information Value Date Recorded Sex Assigned at Not on file Legal Sex Female 1:22 PM 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
--- OUTSIDE RECORDS SUMMARY | 2025-08-03 08:44 | XMS_ITS | Clinical Summary ---
Author Organization [facility] Medical Office Building B Address [address] [place] [address] Care Team Providers Care Millstone Cleaner Name Role Phone Katharine Singh MD Unavailable [phone] Opal Cruz MD Primary Care Provider Allergies [...] mcg tablet 1 tablet (75 mcg total) potato chip fryer before breakfast Active Ubrelvy 100 mg tablet [...] on file Legal Sex Female 1:22 PM ICE HANDLER Gender Identity Female 03/31/2020 4:04 PM [...] HEPATITIS PANEL, ACUTE Routine 12/09/2022 2:11 PM ICE HANDLER Elevated liver enzymes from Last 3 Months or Most Recently Relevant to Health Maintenance Results * Hepatitis panel, acute (12/09/2022 2:11 PM ICE HANDLER) Hep A IgM Nonreactive Nonreactive [facility]IN[facility] OLIVARES (MATHIEU) Comment: Interpretive Data: If Hep A IgM Ab is reported as Equivocal, a new sample should be drawn in two weeks for testing. Current interpretive data was last revised on 20. Testing performed by: [facility], [address] [place] [address]., [id number] Hep B core IgM Nonreactive Nonreactive C ERNER ELISE (MATHIEU) Comment: Interpretive Data If HepB Core IgM Ab is reported as Equivocal, a new sample should be drawn in two weeks for testing. Current interpretive data was last revised on 20. Testing performed by: [facility], [address] [place] [address]., [id number] Hep C Ab Nonreactive Nonreactive CHINYERE OLIVARES [...] last revised on 2020. Testing performed by: [facility], [address] [place] [address]., [id number] HepBsAg Nonreactive Nonreactive CHINYERE OLIVARES (MATHIEU) Comment:Testing performed by : [facility], [address] [place] [address]., [id number] Blood 12/09/2022 2:11 PM ICE HANDLER 12/09/2022 7:49 PM ICE HANDLER Shane Mosley MMD UNIT TEACHER LAB MICROBIOLOGY - GENERAL ORDERABLES Final Result CHINYERE ELISE (MATHIEU) 1 [facility] Department [place] [address] from Last 3 Months or Most Recently Relevant to Health Maintenance Insurance CIGNA CIGNA Advance Directives For more information, please contact: [phone] * Full Code (Latest Code Status on File) Date Activated Date Inactivated Comments 01/06/2024 10:27 AM 01/06/2024 5:17 PM * Full Code Date Activated Date Inactivated Comments 01/06/2024 10:27 AM 01/06/2024 10:27 AM Care Teams Millstone Cleaner Relationship Specialty Start Date End Date Opal Cruz MD [address] [place] [address] PCP - General Family Medicine 01/06/24 Katharine Singh MD Internal Medicine 02/16/19
--- OUTSIDE RECORDS SUMMARY | 2025-08-03 08:44 | XMS_ITS | Encounter Summary ---
Author Organization [facility] Medical Group Address [address] [place] [address] Care Team Providers Care Atomic Physics Professor Name Role Phone Katharine Singh MD Unavailable [phone] Opal Cruz MD Primary Care Provider Encounter Details Date Type Department Care Team (Late st Contact Info) Description 05/03/2011 Orders Only [facility] [place] Health Information Management [address] [place] [address] Scanning, Provider Social History Tobacco Use Types Packs/Day Years Used Date Smoking Tobacco: Never Assessed Comments Unknown Sex and Gender Information Value Date Recorded Sex Assigned at Not on file Legal Sex Female 1:22 PM LAST IRONER Gender Identity Female 03/31/2020 4:04 PM CDT [...] on filedocumented in this encounter Care Teams Atomic Physics Professor Relationship Specialty Start Date End Date Opal Cruz MD [address] [place] [address] PCP - General Family Medicine 01/06/24 Katharine Singh MD Internal Medicine 02/16/19 documented as of this encounter
--- OUTSIDE RECORDS SUMMARY | 2025-08-03 08:44 | XMS_ITS | Encounter Summary ---
Author Organization [facility] Medical Group Address [address] [place] [address] Care Team Providers Care Machine Applicator Cementer Name Role Phone Katharine Singh MD Unavailable Opal Cruz MD Primary Care Provider Encounter Details Date Type Department Care Team (Late st Contact Info) Description 06/30/2011 Orders Only [facility] [place] Health Information Management [address] [place] [address] Scanning, Provider Social History Tobacco Use Types Packs/Day Years Used Date Smoking Tobacco: Never Assessed Comments Unknown Sex and Gender Information Value Date Recorded Sex Assigned at Not on file Legal Sex Female 1:22 PM TACTICAL RESPONSE GROUP OFFICER Gender Identity Female 03/31/2020 4:04 PM CDT [...] on filedocumented in this encounter Care Teams Machine Applicator Cementer Relationship Specialty Start Date End Date Opal Cruz MD [address] [place] [address] PCP - General Family Medicine 01/06/24 Katharine Singh MD Internal Medicine 02/16/19 documented as of this encounter
--- OUTSIDE RECORDS SUMMARY | 2025-08-03 08:44 | XMS_ITS | Encounter Summary ---
Author Organization [facility] Medical Group Address [address] [place] [address] Care Team Providers Care Mapping Supervisor Name Role Phone Katharine Singh MD Unavailable [phone] Opal Cruz MD Primary Care Provider Encounter Details Date Type Department Care Team (Late Contact Info) Description 06/30/2010 Orders Only [facility] [place] Health Information Management [address] [place] [address] Scanning, Provider Social History Tobacco Use Types Packs/Day Years Used Date Smoking Tobacco: Never Assessed Comments Unknown Sex and Gender Information Value Date Recorded Sex Assigned at Not on file Legal Sex Female 1:22 PM QA INTERN Gender Identity Female 03/31/2020 4:04 PM CDT [...] on filedocumented in this encounter Care Teams Mapping Supervisor Relationship Specialty Start Date End Date Opal rCuz MD [address] [place] [address] PCP - General Family Medicine 01/06/24 Katharine Singh MD Internal Medicine 02/16/19 documented as of this encounter
--- OUTSIDE RECORDS SUMMARY | 2025-08-03 08:44 | XMS_ITS | Encounter Summary ---
Author Organization [facility] Medical Group Address [address] [facility] [address] [place] [address] Care Team Providers Care Plug Grower Name Role Phone Katharine Singh MD Unavailable [phone] Opal Cruz MD Primary Care Provider Encounter Details Date Type Department Care Team (Late st Contact Info) Description 03/13/2007 Orders Only [facility] [place] Health Information Management [address] [place] [address] Scanning, Provider Social History Tobacco Use Types Packs/Day Years Used Date Smoking Tobacco: Never Assessed Comments Unknown Sex and Gender Information Value Date Recorded Sex Assigned at Not on file Legal Sex Female 1:22 PM PERSONAL CARE SERVICE PROVIDER Gender Identity Female 03/31/2020 4:04 PM CDT [...] on filedocumented in this encounter Care Teams Plug Grower Relationship Specialty Start Date End Date Opal Cruz MD [address] [place] [address] PCP - General Family Medicine 01/06/24 Katharine Singh MD Internal Medicine 02/16/19 documented as of this encounter
--- OUTSIDE RECORDS SUMMARY | 2025-08-03 08:44 | XMS_ITS | Encounter Summary ---
Author Organization [facility] Medical Group Address [address] [facility] [address] [place] [address] Care Team Providers Care Banking Manager Name Role Phone Katharine Singh MD Unavailable [phone] Opal Cruz MD Primary Care Provider Encounter Details Date Type Department Care Team ([facility] Contact Info) Description 07/09/2011 Orders Only [facility] [place] [address] [place] [address] Scanning, Provider Social History Tobacco Use Types Packs/Day Years Used Date Smoking Tobacco: Never Assessed Comments Unknown Sex and Gender Information Value Date Recorded Sex Assigned at Not on file Legal Sex Female 1:22 PM DIRECTOR REPORT Gender Identity Female 03/31/2020 4:04 PM CDT [...] on filedocumented in this encounter Care Teams Banking Manager Relationship Specialty Start Date End Date Opal Cruz MD [address] [place] [address] PCP - General Family Medicine 01/06/24 Katharine Singh MD Internal Medicine 02/16/19 documented as of this encounter
--- OUTSIDE RECORDS SUMMARY | 2025-08-03 08:44 | XMS_ITS | Encounter Summary ---
Author Organization [facility] Address [address] [place] [address] Care Team Providers Care Inventory Representative Name Role Phone Katharine Singh MD Unavailable [phone] Opal Cruz MD Primary Care Provider Encounter Details Date Type Department Care Team (Late st Contact Info) Description 05/20/2011 Orders Only [facility] [place] [facility] Information Management [address] [place] [id number] Scanning, Provider Social History Tobacco Use Types Packs/Day Years Used Date Smoking Tobacco: Never Assessed Comments Unknown Sex and Gender Information Value Date Recorded Sex Assigned at Not on file Legal Sex Female 1:22 PM TIRE REPAIRMAN Gender Identity Female 03/31/2020 4:04 PM CDT [...] on filedocumented in this encounter Care Teams Inventory Representative Relationship Specialty Start Date End Date Opal Cruz MD [address] [place] [id number] PCP - General Family Medicine 01/06/24 Katharine Singh MD Internal Medicine 02/16/19 documented as of this encounter
--- OUTSIDE RECORDS SUMMARY | 2025-08-03 08:44 | XMS_ITS | Encounter Summary ---
Author Organization [facility] Address [address] [place] [address] Care Team Providers Care Deputy Sheriff Court Services Name Role Phone Katharine Singh MD Unavailable [phone] Opal Cruz MD Primary Care Provider Encounter Details Date Type Department Care Team (Late Contact Info) Description 09/02/2010 Orders Only [facility] [place] Health Information Management [address] [place] [id number] Scanning, Provider Social History Tobacco Use Types Packs/Day Years Used Date Smoking Tobacco: Never Assessed Comments Unknown Sex and Gender Information Value Date Recorded Sex Assigned at Not on file Legal Sex Female 1:22 PM MEDICAL CARE EVALUATION SPECIALIST Gender Identity Female 03/31/2020 4:04 PM [...] on filedocumented in this encounter Care Teams Deputy Sheriff [employer] Services Relationship Specialty Start Date End Date Opal Cruz MD [address] [place] [id number] PCP - General Family Medicine 01/06/24 Katharine Singh MD Internal Medicine 02/16/19 documented as of this encounter
[2025-08-03 09:24] LABS: Hematocrit 41.2 % (35.0-49.0); Hemoglobin 13.6 g/dL (12.0-15.0); Immature Granulocyte Percent A 0.5 % (0.0-0.0); Immature Platelet Fraction Pct 4.2 % (1.0-7.0); Lymphocytes Absolute Auto 2.30 K/mm3 (1.10-4.50); Mean Corpuscular HGB Conc 33.0 g/dL (32-36); Mean Corpuscular Hemoglobin 30.2 pg (27.0-31.0); Mean Corpuscular Volume 91.6 fL (78.0-102.0); Nucleated Red Blood Cells Absolute Auto 0.00 K/mm3 (0.00-0.00); Nucleated Red Blood Cells Perc 0.0 % (0-0.0); Platelet Count Result 315 K/mm3 (150-420); Red Blood Count 4.50 M/mm3 (4.20-5.40); White Blood Count 9.7 K/mm3 (4.8-10.8)
[2025-08-03 09:38] LABS: Alanine Aminotransferase 64 U/L (6-35); Albumin Level 4.5 g/dL (3.5-5.1); Alkaline Phosphatase 106 U/L (38-126); Anion Gap 10 mmol/L (4-12); Aspartate Amino Transferase 50 U/L (14-36); Bilirubin,Total 0.7 mg/dL (0.2-1.3); Blood Urea Nitrogen 12 mg/dL (7-17); Calcium 9.4 mg/dL (8.4-10.2); Carbon Dioxide 25 mmol/L (22-30); Chloride 107 mmol/L (98-107); Cholesterol 178 mg/dL (0-200); Estimated Glomerular Filt Rate > 60; Glucose 97 mg/dL (65-110); HDL Direct 33 mg/dL; Osmolality Calculated 293 mOsm/kg (285-295); Potassium 4.5 mmol/L (3.4-5.0); Sodium 142 mmol/L (137-145); Total Protein 7.9 g/dL (6.3-8.2); Triglycerides 268 mg/dL (<150)
[2025-08-03 10:06] LABS: Thyroid Stimulating Hormone 0.507 uIU/mL (0.465-4.680)
[2025-08-06 09:08] LABS: Free Testosterone (Direct) 2.1 pg/mL (0.0-4.2)
[2025-08-08 23:07] LABS: Estradiol, Sensitive 20.7 pg/mL (.)
== END 2025-08-03 08:40 | disposition home or self-care (01) ==
LOC: CHSLAB 08:42
PROVIDERS: PCP Family Medicine; Visit Provider Registered Nurse
DX: N95.1 Menopausal and female climacteric states (principal); E78.5 Hyperlipidemia, unspecified; E55.9 Vitamin D deficiency, unspecified; E06.3 Autoimmune thyroiditis
CPT/HCPCS: 36415; 80053; 80061; 82306; 82670; 84270; 84402; 84403; 84443; 85025; 85055

== ENCOUNTER 2025-09-10 07:17 | Outpatient (CLI) | payer OTHER, SELFPAY ==
--- NOTE | ~2025-09-10 | US_ITS ---
EXAMINATION: US thyroid DATE: 09/10/2025 07:48 INDICATION: Nodules TECHNIQUE: Multiple ultrasound images of the thyroid were obtained. COMPARISON: November 11, 2023 FINDINGS: The right thyroid lobe measures 4.0 x 1.5 x 1.8 cm. The left thyroid lobe measures 4.7 x 1.7 x 1.6 cm. Isthmus: 2.9 mm The thyroid is diffusely heterogeneous in echotexture throughout. Nodules are again noted The largest described on the previous exam, 1.1 cm right lobe thyroid nodule, TR 4 not clearly changed given variation in measurement. IMPRESSION: 1. No gross interval change from last year's exam. 2. Continued surveillance with follow-up thyroid ultrasound in 12 months recommended. RECOMMENDATION: Follow-up surveillance thyroid ultrasound in 12 months on or about September 10, 2026. Reviewed, dictated and finalized at location A. [facility] ADMIN IMPRESSION: 1. No gross interval change from last year's exam. 2. Continued surveillance with follow-up thyroid ultrasound in 12 months recomm ended. RECOMMENDATION: Follow-up surveillance thyroid ultrasound in 12 months on or ab out September 10, 2026.
== END 2025-09-10 07:18 | disposition home or self-care (01) ==
LOC: CHSIMG 07:18
PROVIDERS: PCP Family Medicine; Visit Provider Registered Nurse
DX: E04.1 Nontoxic single thyroid nodule (principal)
CPT/HCPCS: 76536